=== PATIENT | male | born 1970 | race Caucasian/White ===

== ENCOUNTER 2016-12-23 13:25 | Emergency (ER) | payer MEDICARE, OTHER ==
[~2016-12-23 13:25] MED LIST: AMLO5TAB22 PO; ATOR40TA PO; BACL10TA PO; DICL50TA PO; IBUP-232 PO; LOSA100T PO; METO50TA11 PO; ROBA750T PO; TOVI8TAB PO
[2016-12-23 13:30] VITALS: PULSE 130; RESP 22; TEMP 99.7; O2SAT 97
[2016-12-23 14:07] LABS: BLOOD, URINE TRACE (NEG); GLUCOSE,URINE NEG (NEG); KETONE, URINE 40 mg/dL (NEG); NITRITE,URINE NEG (NEG)
[2016-12-23] MEDS ORDERED: SODIUM CHLOR 0.9% 1000 ML INJ 1,000 ML IV ONE (14:10)
[2016-12-23] MEDS ORDERED: CEFEPIME INJ 2,000 MG in SODIUM CHLORIDE 0.9% INJ 100 ML IV STA (14:10)
[2016-12-23 14:13] LABS: METHOD OF COLLECTION CLEAN CATCH; URINE COLOR YELLOW (YELLW/STRAW); WBC, URINE 100-200 /hpf (0-5)
[2016-12-23 14:14] LABS: BACTERIA, URINE FEW /hpf; COMMENT (UR) CULTURE INDICATED; CULTURE IF INDICATED CULTURE INDICATED
[2016-12-23] MEDS ORDERED: ACETAMINOPHEN 325 MG TAB PO ONE (14:15)
[2016-12-23] MEDS ORDERED: MORPHINE SULFATE 8 MG/ML INJ IV PUSH ONE (14:15)
[2016-12-23] MEDS ORDERED: ONDANSETRON HCL 4 MG/2 ML VIAL IV ONE (14:15)
[2016-12-23] MEDS ORDERED: LEVO-171 PO (14:17)
[2016-12-23] MEDS ORDERED: LORA-373 PO (14:17)
[2016-12-23] MEDS ORDERED: TOVI8TAB PO (14:17)
[2016-12-23] MEDS ORDERED: AMLO5TAB2 PO (14:17)
[2016-12-23] MEDS ORDERED: ZOLP10TA3 PO (14:17)
[2016-12-23] MEDS ORDERED: ATOR40TA16 PO (14:17)
[2016-12-23] MEDS ORDERED: METO50TA11 PO (14:17)
[2016-12-23] MEDS ORDERED: LOSA100T PO (14:17)
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
[2016-12-23 14:38] LABS: BASOPHIL # 0.1 TH/MM3 (0-0.2); BASOPHIL % 0.4 % (0.0-2.0); HEMATOCRIT 52.9 % (39.0-51.0); HEMO FLAGS DIFF FINAL; LYMPH % 4.5 % (9.0-44.0); LYMPHOCYTE # 0.6 TH/MM3 (1.0-4.8); MEAN CELL VOLUME 88.3 FL (80.0-100.0); MEAN CORPUSCULAR HEMOGLOBIN 29.3 PG (27.0-34.0); MEAN CORPUSCULAR HGB CONC 33.2 % (32.0-36.0); MONO % 7.6 % (0.0-8.0); NEUT % 87.5 % (16.0-70.0); PLATELET COUNT 211 TH/MM3 (150-450); RED BLOOD COUNT 5.99 MIL/MM3 (4.50-5.90); RED CELL DISTRIBUTION WIDTH 14.7 % (11.6-17.2); WHITE BLOOD COUNT 13.7 TH/MM3 (4.0-11.0)
[2016-12-23 14:47] LABS: POTASSIUM 3.9 MEQ/L (3.5-5.1)
[2016-12-23 14:50] LABS: BICARBONATE 22.3 MEQ/L (21.0-32.0)
[2016-12-23 15:03] VITALS: BP 96/48; PULSE 113; RESP 18; O2SAT 97
[2016-12-23 15:05] VITALS: BP 96/48; PULSE 113; RESP 18; TEMP 98.6; O2SAT 97
[2016-12-23 16:00] VITALS: BP 108/62; PULSE 74; RESP 18; O2SAT 98
[2016-12-23] MEDS ORDERED: MORPHINE SULFATE 4 MG/ML INJ IV ONE (16:00)
== END 2016-12-23 16:35 | disposition home or self-care (01) ==
LOC: PHEFT 13:25
DX: N39.0 Urinary tract infection, site not specified (principal); N31.8 Other neuromuscular dysfunction of bladder; G82.20 Paraplegia, unspecified; E78.00 Pure hypercholesterolemia, unspecified; E03.9 Hypothyroidism, unspecified; I10 Essential (primary) hypertension; Z87.442 Personal history of urinary calculi; Z72.0 Tobacco use; Z87.440 Personal history of urinary (tract) infections
CPT/HCPCS: 80048; 81001; 83605; 85025; 87040; 87086; 96365; 96375; 96376; 99283; J0692; J2270; J2405; J7030

== ENCOUNTER 2017-01-13 17:32 | Inpatient (IN) | payer MEDICARE ==
[~2017-01-13] VITALS: Ht 203.2 cm; Wt 132.9 kg
[2017-01-13] VITALS (11 sets, daily range): BP systolic 75–125; BP diastolic 54–88; PULSE 92–130; RESP 14–22; TEMP 98.7–102.6; O2SAT 93–100
[~2017-01-13 17:32] MED LIST changes: +AMLO5TAB2 PO; -AMLO5TAB22 PO; -ATOR40TA PO; +ATOR40TA16 PO; -BACL10TA PO; -DICL50TA PO; -IBUP-232 PO; +LEVO-171 PO; +LORA-373 PO; -ROBA750T PO; +ZOLP10TA3 PO
[2017-01-13] MEDS ORDERED: SODIUM CHLOR 0.9% 1000 ML INJ 400 ML IV ONE (17:47)
[2017-01-13] MEDS ORDERED: SODIUM CHLOR 0.9% 1000 ML INJ 1,000 ML IV ONE ×3 (17:47→23:00)
[2017-01-13] MEDS ORDERED: GENTAMICIN INJ 80 MG in SODIUM CHLORIDE 0.9% INJ 100 ML IV STA (17:47)
[2017-01-13] MEDS ORDERED: CEFEPIME INJ 2,000 MG in SODIUM CHLORIDE 0.9% INJ 100 ML IV STA (17:47)
[2017-01-13] MEDS ORDERED: ONDANSETRON HCL 4 MG/2 ML VIAL IV ONE (18:00)
[2017-01-13] MEDS ORDERED: MORPHINE SULFATE 4 MG/ML INJ IV PUSH ONE ×2 (18:00→19:00)
[2017-01-13] MEDS ORDERED: GENTAMICIN/SOD CHL 80 MG/100 ML IV ONE (18:00)
[2017-01-13] MEDS ORDERED: ACETAMINOPHEN 325 MG TAB PO ONE (18:00)
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
--- NOTE | 2017-01-13 18:02 | RADHPO ---
EXAM DATE/TIME: 01/13/2017 17:55 [facility] COMPARISON: CHEST SINGLE AP, January 13, 2016, 2:51. INDICATIONS : Fever, shortness of breath starting today MEDICAL HISTORY : None. SURGICAL HISTORY : Fusion, lumbar. Fusion, thoracic. ENCOUNTER: Initial ACUITY: 1 day PAIN SCORE: 0/10 LOCATION: Bilateral chest FINDINGS: A single view of the chest demonstrates the lungs to be symmetrically aerated without evidence of mas s, infiltrate or effusion. The cardiomediastinal contours are unremarkable. Osseous structures are intact. CONCLUSION: No acute disease. Preet Li MD FACR on January 13, 2017 at 18:01 Board Certified Radiologist. This report was verified electronically.
[2017-01-13 18:08] LABS: BLOOD GAS VENOUS BASE EXCESS 3.2 mmol/L (-2-2); BLOOD GAS VENOUS HCO3 26 mmol/L (22-26); BLOOD GAS VENOUS O2 CONTENT 9.7 Vol % (9.0-17.0); BLOOD GAS VENOUS O2 HGB SAT 40 % (70-76); BLOOD GAS VENOUS PCO2 33 mmHg (44-48); BLOOD GAS VENOUS PO2 24 mmHg (35-40); BLOOD GAS VENOUS pH 7.51 (7.360-7.400); TEMP CORR TO 98.6
[2017-01-13 18:09] LABS: CRITICAL VALUE YES; DRAW SITE IV; FIO2 21 %; OXYGEN DEVICE ROOM AIR; STAT YES
[2017-01-13 18:14] LABS: AUTOMATED NEUTROPHIL # 7.3 TH/MM3 (1.8-7.7); BASOPHIL # 0.1 TH/MM3 (0-0.2); BASOPHIL % 1.4 % (0.0-2.0); EOSINOPHIL # 0.1 TH/MM3 (0-0.4); EOSINOPHIL % 0.6 % (0.0-4.0); HEMATOCRIT 50.9 % (39.0-51.0); LYMPH % 5.6 % (9.0-44.0); LYMPHOCYTE # 0.5 TH/MM3 (1.0-4.8); MEAN CELL VOLUME 86.9 FL (80.0-100.0); MEAN CORPUSCULAR HEMOGLOBIN 28.1 PG (27.0-34.0); MEAN CORPUSCULAR HGB CONC 32.3 % (32.0-36.0); MONO % 10.3 % (0.0-8.0); NEUT % 82.1 % (16.0-70.0); PLATELET COUNT 176 TH/MM3 (150-450); RED BLOOD COUNT 5.85 MIL/MM3 (4.50-5.90); RED CELL DISTRIBUTION WIDTH 15.2 % (11.6-17.2); WHITE BLOOD COUNT 8.9 TH/MM3 (4.0-11.0)
[2017-01-13 18:20] LABS: CHLORIDE 100 MEQ/L (98-107); POTASSIUM 3.8 MEQ/L (3.5-5.1); SODIUM (NA) 137 MEQ/L (136-145)
[2017-01-13 18:23] LABS: ANION GAP 10 MEQ/L (5-15); BICARBONATE 26.7 MEQ/L (21.0-32.0)
[2017-01-13 18:24] LABS: BLOOD UREA NITROGEN 13 MG/DL (7-18)
[2017-01-13 18:26] LABS: ALT (GPT) 23 U/L (12-78); AST (GOT) 8 U/L (15-37); GLOMERULAR FILTRATION RATE 59 ML/MIN (>89)
[2017-01-13 18:27] LABS: HEMO FLAGS AUTO DIFF
[2017-01-13 18:29] LABS: ALKALINE PHOSPHATASE 78 U/L (45-117)
[2017-01-13 18:37] LABS: SCAN/DIFF AUTO DIFF CONFIRMED
[2017-01-13 18:46] LABS: GLUCOSE,URINE 100 mg/dL (NEG); KETONE, URINE NEG (NEG)
[2017-01-13 18:56] LABS: BLOOD, URINE MOD (NEG); NITRITE,URINE POS (NEG); URINE COLOR ORANGE (YELLW/STRAW)
[2017-01-13 18:58] LABS: BACTERIA, URINE MOD /hpf
[2017-01-13 18:59] LABS: COMMENT (UR) CULTURE INDICATED; CULTURE IF INDICATED CULTURE INDICATED
[2017-01-13] MEDS ORDERED: KETOROLAC TROMETHAMINE 30 MG/ML (IVP) VIAL IV PUSH ONE (19:15)
[2017-01-13 20:03] LABS: LACTIC ACID GHOST NOT REPORTABLE
[2017-01-13] MEDS ORDERED: NALOXONE HCL 0.4 MG/ML AMP IV PRN (20:45)
[2017-01-13] MEDS ORDERED: SODIUM CHLORIDE 0.9% FLUSH 5 ML FLUSH FLUSH PRN (20:45)
[2017-01-13] MEDS ORDERED: Gentamicin Consult Pharmacy 1 EA OTHER SCH (20:45)
[2017-01-13] MEDS: SODIUM CHLOR 0.9% 1000 ML INJ 1,000 ML IV SCH (21:10)
[2017-01-13] MEDS: SODIUM CHLORIDE 0.9% FLUSH 5 ML FLUSH FLUSH SCH (21:10)
[2017-01-13] MEDS: ZOLPIDEM TARTRATE 5 MG TAB PO PRN (23:02)
[2017-01-14] VITALS (30 sets, daily range): BP systolic 67–138; BP diastolic 40–83; PULSE 84–124; RESP 15–110; TEMP 97.8–101.9; O2SAT 90–98
[2017-01-14] MEDS ORDERED: SODIUM CHLORIDE 0.9% IV SCH ×2
[2017-01-14] MEDS ORDERED: GENTAMICIN IV SCH ×2
[2017-01-14] MEDS: ONDANSETRON HCL 4 MG/2 ML VIAL IVP PRN ×2 (02:50→18:27)
[2017-01-14] MEDS: LORazepam 0.5 MG TAB PO PRN ×2 (02:50→20:16)
[2017-01-14] MEDS ORDERED: MORPHINE SULFATE 4 MG/ML INJ IV PUSH PRN (03:15)
[2017-01-14] MEDS ORDERED: CHLORHEXIDINE GLUCONATE 2 % 1 PACK (2 CLOTHS)(extra cloths) TOP PRN (04:00)
[2017-01-14] MEDS: CHLORHEXIDINE GLUCONATE 2 % 1 PACK (2 CLOTHS)(taper/protocol) TOP SCH (04:00)
[2017-01-14 04:58] LABS: AUTOMATED NEUTROPHIL # 7.3 TH/MM3 (1.8-7.7); BASOPHIL # 0.1 TH/MM3 (0-0.2); BASOPHIL % 1.2 % (0.0-2.0); EOSINOPHIL % 0.1 % (0.0-4.0); HEMATOCRIT 42.8 % (39.0-51.0); LYMPH % 5.4 % (9.0-44.0); LYMPHOCYTE # 0.5 TH/MM3 (1.0-4.8); MEAN CELL VOLUME 86.2 FL (80.0-100.0); MEAN CORPUSCULAR HEMOGLOBIN 28.7 PG (27.0-34.0); MEAN CORPUSCULAR HGB CONC 33.3 % (32.0-36.0); MONO % 15.5 % (0.0-8.0); NEUT % 77.8 % (16.0-70.0); PLATELET COUNT 137 TH/MM3 (150-450); RED BLOOD COUNT 4.97 MIL/MM3 (4.50-5.90); RED CELL DISTRIBUTION WIDTH 14.8 % (11.6-17.2); WHITE BLOOD COUNT 9.4 TH/MM3 (4.0-11.0)
[2017-01-14] MEDS ORDERED: ACETAMINOPHEN 325 MG TAB PO PRN (05:00)
[2017-01-14] MEDS: HYDROmorphone HCL PF 1 MG/ML VIAL IV PUSH PRN ×6 (05:01→23:48)
[2017-01-14] MEDS: SODIUM CHLOR 0.9% 1000 ML INJ 1,000 ML IV SCH ×3 (05:02→20:15)
[2017-01-14 05:06] LABS: POTASSIUM 3.7 MEQ/L (3.5-5.1)
[2017-01-14 05:09] LABS: HEMO FLAGS AUTO DIFF
[2017-01-14 05:10] LABS: BICARBONATE 22.5 MEQ/L (21.0-32.0)
[2017-01-14 05:23] LABS: PLATELET ESTIMATE SMEAR LOW (NORMAL); PLATELET MORPHOLOGY NORMAL (NORMAL); SCAN/DIFF AUTO DIFF CONFIRMED
[2017-01-14] MEDS: LEVOTHYROXINE SODIUM 150 MCG TAB PO SCH (05:32)
[2017-01-14 05:34] LABS: CALCIUM-PROTEIN CORRECTED 7.8 MG/DL (8.5-10.1)
[2017-01-14] MEDS ORDERED: METOPROLOL SUCCINATE 50 MG EXTENDED RELEASE TAB PO SCH (09:00)
[2017-01-14] MEDS: ENOXAPARIN SODIUM 40 MG/0.4 ML SYRINGE SQ SCH ×2 (09:00→09:29)
[2017-01-14] MEDS: SODIUM CHLORIDE 0.9% FLUSH 5 ML FLUSH FLUSH SCH ×2 (09:36→20:15)
[2017-01-14] MEDS: TOLTERODINE TARTRATE 4 MG CAP LA PO SCH (09:36)
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
[2017-01-14] MEDS: ACETAMINOPHEN/HYDROcodone 325 MG/7.5 MG TAB PO PRN ×3 (11:35→21:54)
[2017-01-14] MEDS ORDERED: PHARMACY ORDERED LAB XX ONE (12:00)
[2017-01-14] MEDS: PIPERACIL-TAZO 3.375 GM PREMIX 50 ML IV SCH ×2 (12:19→17:43)
--- NOTE | 2017-01-14 14:39 | RADHPO ---
EXAM DATE/TIME: 01/14/2017 14:03 [facility] COMPARISON: No previous studies available for comparison. INDICATIONS : Left flank pain. Fever. Sepsis. Complicated urinary tract infection. ORAL CONTRAST: No oral contrast ingested. RADIATION DOSE: 22.25 CTDIvol (mGy) MEDICAL HISTORY : Renal calculi. Hypertension. Hypothyroidism.Colitis. Paraplegia. SURGICAL HISTORY : Appendectomy. Fusion, thoracic.Fusion, lumbar.Cholecystectomy. ENCOUNTER: Initial ACUITY: 2 days PAIN SCALE: 7/10 LOCATION: Left flank TECHNIQUE: Volumetric scanning of the abdomen and pelvis was performed. Using automated exposure control and ad justment of the mA and/or kV according to patient size, radiation dose was kept as low as reasonably achievable to obtain optimal diagnostic quality images. FINDINGS: LOWER LUNGS: Right basilar atelectasis. LIVER: Homogeneous density without lesion. There is no dilation of the biliary tree. Cholecystectomy clips. SPLEEN: Normal size without lesion. PANCREAS: Within normal limits. KIDNEYS: Normal in size and shape. There is no mass, stone, or hydronephrosis. ADRENAL GLANDS: Within normal limits. VASCULAR: There is no aortic aneurysm. BOWEL/MESENTERY: The stomach, small bowel, and colon demonstrate no acute abnormality. There is no free intraperitone al air or fluid. ABDOMINAL WALL: Within normal limits. RETROPERITONEUM: There is no lymphadenopathy. BLADDER: No wall thickening or mass. REPRODUCTIVE: Within normal limits. INGUINAL: There is no lymphadenopathy or hernia. MUSCULOSKELETAL: Spinal rods are seen at the thoracolumbar junction extending into the upper lumbar spine to about L3 level. CONCLUSION: 1. Status post cholecystectomy. 2. No renal calculi or hydronephrosis. Jimbo Sun MD on January 14, 2017 at 14:31 Board Certified Radiologist. This report was verified electronically.
--- NOTE | 2017-01-14 14:58 | RADHPO ---
EXAM DATE/TIME: 01/14/2017 11:38 [facility] COMPARISON: No previous studies available for comparison. EXTERNAL COMPARISON : [facility], US GALLBLADDER, September 10, 2009. [facility], CT ABDOMEN & PELVIS W & W/ O CONTRAST, December. INDICATIONS : Left flank pain. MEDICAL HISTORY : Hypothyroidism. Hypercholesterolemia. Gastroesophageal reflux disease. L1-T2 spinal cord injury. Para plegic. Seizures. Hypertension. Colitis. UTI. Tachycardia SURGICAL HISTORY : Tonsillectomy. Cholecystectomy. Appendectomy. Spinal fusion. Skin graft on right foot. Portion of hip and rib removal. ENCOUNTER: Initial ACUITY: 1 day PAIN SCORE: 4/10 LOCATION: Bilateral flank MEASUREMENTS: RIGHT KIDNEY: 14.3 x 6.3 x 6.8 cm LEFT KIDNEY: 14.2 x 6.4 x 5.4 cm FINDINGS: RIGHT KIDNEY: Renal cortex is normal in thickness and echotexture. No hydronephrosis, stone, or mass. LEFT KIDNEY: Renal cortex is normal in thickness and echotexture. No hydronephrosis, stone, or mass. BLADDER: Within normal limits given the degree of distension. CONCLUSION: Normal renal sonogram. Jimbo Sun MD on January 14, 2017 at 14:56 Board Certified Radiologist. This report was verified electronically.
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
[2017-01-14] MEDS ORDERED: cefTRIAXone 1,000 MG/NS 100 ML IV SCH ×2 (20:00)
[2017-01-14] MEDS: ZOLPIDEM TARTRATE 5 MG TAB PO PRN (21:54)
[2017-01-15] VITALS (15 sets, daily range): BP systolic 108–160; BP diastolic 65–93; PULSE 90–123; RESP 20–40; TEMP 98–98.8; O2SAT 93–98
[2017-01-15 00:29] LABS: BLOOD, URINE LARGE (NEG); GLUCOSE,URINE NEG (NEG); KETONE, URINE TRACE mg/dL (NEG); NITRITE,URINE NEG (NEG); PH, URINE 5.5 (5.0-8.5)
[2017-01-15 00:44] LABS: COMMENT (UR) CATH-CULT NOT IND; CULTURE IF INDICATED CATH CULTURE NOT IND; RBC, URINE 100-200 /hpf (0-3); SQUAMOUS EPITHELIAL CELL URINE 0-5 /hpf (0-5); URINE COLOR YELLOW (YELLW/STRAW)
[2017-01-15] MEDS: HYDROmorphone HCL PF 1 MG/ML VIAL IV PUSH PRN ×6 (03:10→23:47)
[2017-01-15] MEDS: CHLORHEXIDINE GLUCONATE 2 % 1 PACK (2 CLOTHS)(taper/protocol) TOP SCH (03:12)
[2017-01-15] MEDS: SODIUM CHLOR 0.9% 1000 ML INJ 1,000 ML IV SCH ×3 (06:06→20:33)
[2017-01-15] MEDS: LEVOTHYROXINE SODIUM 150 MCG TAB PO SCH (06:13)
[2017-01-15] MEDS: SODIUM CHLORIDE 0.9% FLUSH 5 ML FLUSH FLUSH SCH ×2 (09:00→20:34)
[2017-01-15] MEDS ORDERED: amLODIPine BESYLATE 5 MG TAB PO SCH (09:00)
[2017-01-15] MEDS: ENOXAPARIN SODIUM 40 MG/0.4 ML SYRINGE SQ SCH (09:00)
[2017-01-15] MEDS ORDERED: LOSARTAN 50 MG TAB PO SCH (09:00)
--- NOTE | 2017-01-15 09:00 | HHI.PR ---
Subjective Remarks Patient seen and examined today. Patient's only complaint is still pain which is not controlled with medication to include headache and left flank pain. I discussed with the patient clinical findings at this time a CT scan being completely normal. Repeat urinalysis is unremarkable. Awaiting cultures for final determination of outpatient antibiotics. Objective Vitals Vital Signs Date Time Temp Pulse Resp B/P Pulse Ox O2 Delivery O2 Flow Rate FiO2 01/15/17 06:36 23 01/15/17 06:00 118 25 152/84 96 01/15/17 06:00 116 01/15/17 05:00 122 25 93 01/15/17 04:00 98.5 118 25 135/85 93 01/15/17 04:00 123 01/15/17 03:02 98.8 122 40 142/77 93 01/15/17 02:01 104 25 140/74 94 01/15/17 02:00 94 01/15/17 01:00 100 21 148/74 94 01/15/17 00:00 98.8 108 23 108/74 94 01/15/17 00:00 102 01/14/17 23:00 102 21 109/58 01/14/17 22:54 21 01/14/17 22:00 94 01/14/17 22:00 94 30 113/73 96 01/14/17 21:00 100 25 122/82 01/14/17 20:00 99.5 108 22 97/60 96 01/14/17 20:00 105 01/14/17 18:00 100 01/14/17 17:02 94 20 108/61 01/14/17 16:02 98.0 84 16 108/62 01/14/17 16:00 92 01/14/17 15:02 88 16 109/62 93 01/14/17 15:00 92 01/14/17 14:17 94 17 103/62 01/14/17 14:00 96 01/14/17 13:00 92 01/14/17 13:00 92 17 102/81 90 01/14/17 12:00 86 01/14/17 12:00 97.8 86 18 114/65 93 01/14/17 11:00 86 01/14/17 11:00 86 16 104/76 95 01/14/17 10:00 92 21 107/62 94 01/14/17 10:00 92 01/14/17 09:00 92 01/14/17 09:00 92 23 102/67 97 I/O 01/14/17 01/14/17 01/14/17 01/15/17 01/15/17 01/15/17 07:00 15:00 23:00 07:00 15:00 23:00 Intake Total 1735 ml 2381 ml 1899 ml Output Total 1625 ml 1600 ml Balance 1735 ml 756 ml 299 ml Intake Oral 900 ml 800 ml IV Total 1735 ml 1481 ml 1099 ml Output Urine Total 1625 ml 1600 ml # Bowel Movements 0 0 Result Diagram: 01/14/177 01/14/177 Objective Remarks GENERAL: Well-developed, well-nourished, in no acute distress. alert and orientated HEENT: Head is normocephalic without any lesions or masses noted. Facial features are symmetric. Eyes: Extraocular muscles are intact. Conjunctivae were clear. NECK: Supple without any masses. Trachea midline no deviation. No JVD, CARDIAC: Regular rhythm, regular rate. S1/S2 are heard. No murmurs gallops or rubs. LUNGS: Clear to auscultation bilaterally. No wheeze, rhonchi or rales. No use of accessory muscles on inspiration or expiration. ABDOMEN: Soft, nontender. Nondistended. Bowel sounds heard in all 4 quadrants. No organomegaly or masses. Negative rebound, negative guarding. No CVA tenderness EXTREMITIES: No edema, pulses are equal bilaterally. No cyanosis or clubbing NEUROLOGY: Mood and affect appear appropriate. Cranial nerves II through XII grossly intact. Speech is normal Urinary Catheter: No Vascular Central Line Catheter: No A/P Assessment and Plan Severe sepsis: Resolved. Patient met criteria on presentation with febrile illness, sinus tachycardia, hypotension, lactic acidosis, urinary tract infection. Patient admitted to the ICU, no longer requires ICU management will transferred to med/surg floor. Patient status post 5 L of IV fluid for fluid resuscitation. Blood pressure is improved. Infectious disease was consulted and discontinue gentamicin, Zosyn. Started patient on Rocephin. Influenza testing was negative, blood cultures positive with Escherichia coli, urine cultures with ESBL + Escherichia coli. Chest x-rays done which did not indicate any acute abnormality. Discussed with infectious disease who indicated discontinue Rocephin and resume Zosyn Bacteremia with Escherichia coli: Continue Rocephin. CT of the abdomen and pelvis does not indicate any abnormality. Consulted infectious disease for further recommendations, repeat blood cultures are pending Complicated urinary Tract infection: Patient with left flank pain which appears to be colicky. No CVA tenderness. renal/bladder ultrasound was normal. Continue antibiotics as above. Continue to follow urine culture for further recommendations Acute renal failure: Likely secondary to sepsis and hypotension, venous blood gas did indicate O2 saturation of 40 which would be related to hypoperfusion. Continue IV fluids, monitor renal function, avoid nephrotoxins Hypothyroidism: Resume replacement therapy DVT prevention: Lovenox Written by Jose Mcclain PA-C, acting as scribe for Dr. Hernandez on 01/15/17 at 1150. The documentation accurately reflects the work and decisions performed face-to- face by Dr. Hernandez on 01/15/17 at 1150. Discharge Planning Discharge planning hopefully within the next 24 hours if patient remains afebrile. Blood cultures remain negative for at least 2 days. Awaiting culture sensitivities for appropriate antibiotics. Jose Mcclain Jan 15, 2017 09:00
[2017-01-15] MEDS: TOLTERODINE TARTRATE 4 MG CAP LA PO SCH (09:15)
[2017-01-15] MEDS: CALCIUM CARBONATE 500 MG CHEWABLE TAB CHEW SCH ×2 (09:15→20:33)
[2017-01-15] MEDS: METOPROLOL SUCCINATE 50 MG EXTENDED RELEASE TAB PO SCH (09:15)
[2017-01-15] MEDS: oxyCODONE/ACETAMINOPHEN 10 MG/325 MG TAB PO PRN ×2 (09:16→15:05)
[2017-01-15 10:05] LABS: BICARBONATE 25.3 MEQ/L (21.0-32.0); POTASSIUM 4.3 MEQ/L (3.5-5.1)
[2017-01-15] MEDS: ONDANSETRON HCL 4 MG/2 ML VIAL IVP PRN (10:38)
[2017-01-15] MEDS ORDERED: GENTAMICIN IV SCH (11:00)
[2017-01-15] MEDS ORDERED: SODIUM CHLORIDE 0.9% IV SCH (11:00)
[2017-01-15] MEDS: PIPERACIL-TAZO 3.375 GM PREMIX 50 ML IV SCH ×3 (12:09→23:46)
[2017-01-16] VITALS (8 sets, daily range): BP systolic 99–168; BP diastolic 62–99; PULSE 72–94; RESP 16–22; TEMP 97.9–99.3; O2SAT 94–99
[2017-01-16] MEDS: HYDROmorphone HCL PF 1 MG/ML VIAL IV PUSH PRN ×5 (02:44→21:31)
[2017-01-16] MEDS: LEVOTHYROXINE SODIUM 150 MCG TAB PO SCH (06:01)
[2017-01-16] MEDS: SODIUM CHLOR 0.9% 1000 ML INJ 1,000 ML IV SCH ×3 (06:01→21:29)
[2017-01-16] MEDS: CHLORHEXIDINE GLUCONATE 2 % 1 PACK (2 CLOTHS)(taper/protocol) TOP SCH (06:04)
[2017-01-16] MEDS: PIPERACIL-TAZO 3.375 GM PREMIX 50 ML IV SCH ×3 (06:05→18:26)
[2017-01-16 06:29] LABS: POTASSIUM 3.5 MEQ/L (3.5-5.1)
[2017-01-16 06:33] LABS: BICARBONATE 26.6 MEQ/L (21.0-32.0)
[2017-01-16] MEDS: CALCIUM CARBONATE 500 MG CHEWABLE TAB CHEW SCH ×2 (07:56→21:28)
[2017-01-16] MEDS: METOPROLOL SUCCINATE 50 MG EXTENDED RELEASE TAB PO SCH (07:56)
[2017-01-16] MEDS: TOLTERODINE TARTRATE 4 MG CAP LA PO SCH (07:56)
[2017-01-16] MEDS: SODIUM CHLORIDE 0.9% FLUSH 5 ML FLUSH FLUSH SCH ×2 (07:57→21:29)
[2017-01-16] MEDS: ENOXAPARIN SODIUM 40 MG/0.4 ML SYRINGE SQ SCH (07:57)
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
[2017-01-16] MEDS: LOSARTAN 50 MG TAB PO SCH (14:31)
[2017-01-16] MEDS: oxyCODONE/ACETAMINOPHEN 10 MG/325 MG TAB PO PRN (16:01)
[2017-01-16] MEDS: ZOLPIDEM TARTRATE 5 MG TAB PO PRN ×2 (21:29→21:32)
[2017-01-17] MEDS: HYDROmorphone HCL PF 1 MG/ML VIAL IV PUSH PRN ×6 (00:33→21:14)
[2017-01-17] MEDS: PIPERACIL-TAZO 3.375 GM PREMIX 50 ML IV SCH ×5 (00:39→22:57)
[2017-01-17 00:40] VITALS: BP 133/87; PULSE 76; RESP 18; TEMP 97.9; O2SAT 98
[2017-01-17] MEDS: LORazepam 0.5 MG TAB PO PRN (03:35)
[2017-01-17] MEDS: CHLORHEXIDINE GLUCONATE 2 % 1 PACK (2 CLOTHS)(taper/protocol) TOP SCH (03:37)
[2017-01-17] MEDS: LEVOTHYROXINE SODIUM 150 MCG TAB PO SCH (05:52)
[2017-01-17] MEDS: SODIUM CHLOR 0.9% 1000 ML INJ 1,000 ML IV SCH ×3 (05:53→21:15)
[2017-01-17] MEDS: TOLTERODINE TARTRATE 4 MG CAP LA PO SCH (08:35)
[2017-01-17] MEDS: ENOXAPARIN SODIUM 40 MG/0.4 ML SYRINGE SQ SCH (08:36)
[2017-01-17] MEDS: METOPROLOL SUCCINATE 50 MG EXTENDED RELEASE TAB PO SCH (08:36)
[2017-01-17] MEDS: SODIUM CHLORIDE 0.9% FLUSH 5 ML FLUSH FLUSH SCH ×2 (08:36→21:15)
[2017-01-17] MEDS: LOSARTAN 50 MG TAB PO SCH (08:36)
[2017-01-17] MEDS: CALCIUM CARBONATE 500 MG CHEWABLE TAB CHEW SCH ×2 (08:36→21:14)
[2017-01-17 09:18] VITALS: BP 144/99; PULSE 85; RESP 15; TEMP 97.5; O2SAT 96
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
[2017-01-17 17:00] VITALS: BP 160/99; PULSE 83; RESP 17; TEMP 96.9; O2SAT 99
[2017-01-17 20:00] VITALS: BP 116/89; PULSE 96; RESP 20; TEMP 97.5; O2SAT 97
[2017-01-17] MEDS: ZOLPIDEM TARTRATE 5 MG TAB PO PRN (21:14)
[2017-01-18] VITALS: BP 151/99; PULSE 83; RESP 20; TEMP 97.6; O2SAT 98
[2017-01-18] MEDS: HYDROmorphone HCL PF 1 MG/ML VIAL IV PUSH PRN ×3 (00:14→06:11)
[2017-01-18] MEDS: LORazepam 0.5 MG TAB PO PRN (02:55)
[2017-01-18] MEDS: CHLORHEXIDINE GLUCONATE 2 % 1 PACK (2 CLOTHS)(taper/protocol) TOP SCH (03:01)
[2017-01-18] MEDS: SODIUM CHLOR 0.9% 1000 ML INJ 1,000 ML IV SCH ×2 (05:40→12:45)
[2017-01-18] MEDS: LEVOTHYROXINE SODIUM 150 MCG TAB PO SCH (05:40)
[2017-01-18] MEDS: PIPERACIL-TAZO 3.375 GM PREMIX 50 ML IV SCH ×2 (05:41→13:26)
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
[2017-01-18 08:00] VITALS: BP 141/96; PULSE 78; RESP 16; TEMP 97.1; O2SAT 97
[2017-01-18] MEDS: TOLTERODINE TARTRATE 4 MG CAP LA PO SCH (09:50)
[2017-01-18] MEDS: oxyCODONE/ACETAMINOPHEN 10 MG/325 MG TAB PO PRN (09:50)
[2017-01-18] MEDS: LOSARTAN 50 MG TAB PO SCH (09:50)
[2017-01-18] MEDS: ENOXAPARIN SODIUM 40 MG/0.4 ML SYRINGE SQ SCH (09:51)
[2017-01-18] MEDS: CALCIUM CARBONATE 500 MG CHEWABLE TAB CHEW SCH (09:51)
[2017-01-18] MEDS: METOPROLOL SUCCINATE 50 MG EXTENDED RELEASE TAB PO SCH (09:51)
[2017-01-18] MEDS: SODIUM CHLORIDE 0.9% FLUSH 5 ML FLUSH FLUSH SCH (09:51)
[2017-01-18] MEDS ORDERED: AUGM875T PO (11:36)
[2017-01-18] MEDS ORDERED: DILA2TAB2 PO (11:36)
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
[2017-01-18 12:00] VITALS: BP 161/100; PULSE 89; RESP 16; TEMP 97.3; O2SAT 98
== END 2017-01-18 14:54 | disposition home or self-care (01) | DRG 872 ==
LOC: PHED 17:32 → PHEDA 19:13 → PHICU 21:30 → PH3B 01-16 15:35
PROVIDERS: ADMIT Family Medicine; ATTEND Family Medicine
DX: A41.51 Sepsis due to Escherichia coli [E. coli] (principal); E87.2 Acidosis; N17.9 Acute kidney failure, unspecified; G82.20 Paraplegia, unspecified; S24.104S Unspecified injury at T11-T12 level of thoracic spinal cord, sequela; N31.2 Flaccid neuropathic bladder, not elsewhere classified; N39.0 Urinary tract infection, site not specified; R65.20 Severe sepsis without septic shock; Z99.3 Dependence on wheelchair; E78.00 Pure hypercholesterolemia, unspecified; E03.9 Hypothyroidism, unspecified; I10 Essential (primary) hypertension; G47.30 Sleep apnea, unspecified; Z87.442 Personal history of urinary calculi; F17.210 Nicotine dependence, cigarettes, uncomplicated; E78.5 Hyperlipidemia, unspecified; Z98.1 Arthrodesis status; F12.90 Cannabis use, unspecified, uncomplicated; N32.89 Other specified disorders of bladder; B19.20 Unspecified viral hepatitis C without hepatic coma; Z16.12 Extended spectrum beta lactamase (ESBL) resistance; Z88.1 Allergy status to other antibiotic agents; V89.2XXS Person injured in unspecified motor-vehicle accident, traffic, sequela
CPT/HCPCS: 71010; 74176; 76775; 80048; 80053; 80170; 81001; 82805; 83605; 83690; 84155; 85025; 87040; 87077; 87086; 87186; 87205; 87641; 87804; 96365; 96367; 96375; 96376; J0692; J0696; J1170; J1580; J1650; J1885; J2270; J2405; J2543; J7030

== ENCOUNTER 2017-01-26 21:29 | Emergency (ER) | payer MEDICARE ==
[~2017-01-26 21:29] MED LIST changes: -ATOR40TA16 PO; +AUGM875T PO; +DILA2TAB2 PO
[2017-01-26 21:47] VITALS: BP 120/84; PULSE 107; RESP 20; TEMP 98.5; O2SAT 95
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
[2017-01-26] MEDS ORDERED: ATOR40TA16 PO (22:23)
== END 2017-01-26 22:35 | disposition home or self-care (01) ==
LOC: PHEFT 21:29
DX: I80.8 Phlebitis and thrombophlebitis of other sites (principal); E78.00 Pure hypercholesterolemia, unspecified; E03.9 Hypothyroidism, unspecified; I10 Essential (primary) hypertension; F17.210 Nicotine dependence, cigarettes, uncomplicated
CPT/HCPCS: 99283

== ENCOUNTER 2017-02-05 20:38 | Emergency (ER) | payer MEDICARE ==
[~2017-02-05] VITALS: Ht 203.2 cm; Wt 118.0 kg
[~2017-02-05 20:38] MED LIST changes: +ATOR40TA16 PO; -AUGM875T PO; -DILA2TAB2 PO
[2017-02-05 20:50] VITALS: BP 114/89; PULSE 99; TEMP 98.8
[2017-02-05 21:29] VITALS: BP 114/89; PULSE 99; RESP 18; TEMP 98.8; O2SAT 97
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
[2017-02-05] MEDS ORDERED: PYRI200T4 PO (21:57)
[2017-02-05] MEDS ORDERED: MACR100C2 PO (21:57)
[2017-02-05] MEDS ORDERED: PHENAZOPYRIDINE HCL 200 MG TAB PO ONE (22:00)
[2017-02-05] MEDS ORDERED: NITROFURANTOIN MONOHYD MACROCR 100 MG CAP PO ONE (22:00)
== END 2017-02-05 22:50 | disposition home or self-care (01) ==
LOC: PHED 20:38
DX: N30.90 Cystitis, unspecified without hematuria (principal); N31.9 Neuromuscular dysfunction of bladder, unspecified; I10 Essential (primary) hypertension; Z72.0 Tobacco use; F12.90 Cannabis use, unspecified, uncomplicated
CPT/HCPCS: 99283

== ENCOUNTER 2017-03-17 22:49 | Emergency (ER) | payer MEDICARE ==
[~2017-03-17] VITALS: Ht 203.2 cm; Wt 129.0 kg
[~2017-03-17 22:49] MED LIST changes: +MACR100C2 PO; +PYRI200T4 PO
[2017-03-17 22:59] VITALS: BP 145/105; PULSE 131; RESP 20; TEMP 98.2; O2SAT 97
[2017-03-17 23:09] VITALS: BP 145/105; PULSE 130; RESP 20; TEMP 98.2; O2SAT 97
[2017-03-17] MEDS ORDERED: HYDR-2374 PO (23:21)
[2017-03-17] MEDS ORDERED: ESCI10TA PO (23:21)
[2017-03-17] MEDS ORDERED: ALPR.5 PO (23:21)
[2017-03-17] MEDS ORDERED: SODIUM CHLOR 0.9% 1000 ML INJ 1,000 ML IV SCH ×2 (23:39→23:45)
[2017-03-17 23:45] VITALS: O2SAT 97
[2017-03-17] MEDS ORDERED: KETOROLAC TROMETHAMINE 60 MG/2 ML (IM) VIAL IVP ONE (23:45)
[2017-03-17] MEDS ORDERED: ONDANSETRON HCL 4 MG/2 ML VIAL IV ONE (23:45)
[2017-03-17] MEDS ORDERED: SODIUM CHLORIDE 0.9% FLUSH 10 ML FLUSH IV FLUSH PRN (23:45)
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
--- NOTE | 2017-03-18 00:07 | RADHPO ---
EXAM DATE/TIME: 03/17/2017 23:48 [facility] COMPARISON: No previous studies available for comparison. INDICATIONS : Cough, shortness of breath, chest pain. MEDICAL HISTORY : None. SURGICAL HISTORY : Fusion, thoracic. Fusion, lumbar. ENCOUNTER: Initial ACUITY: 3 days PAIN SCORE: 3/10 LOCATION: chest FINDINGS: PA and lateral views of the chest demonstrate the lungs to be symmetrically aerated without evidence of mass, infiltrate or effusion. The cardiomediastinal contours are unremarkable. Osseous structure s are intact. CONCLUSION: 1. No acute cardiopulmonary disease. Javy Martinez MD on March 18, 2017 at 0:05 Board Certified Radiologist. This report was verified electronically.
[2017-03-18 00:19] LABS: AUTOMATED NEUTROPHIL # 8.2 TH/MM3 (1.8-7.7); BASOPHIL # 0.1 TH/MM3 (0-0.2); BASOPHIL % 0.5 % (0.0-2.0); EOSINOPHIL % 0.4 % (0.0-4.0); HEMATOCRIT 56.6 % (39.0-51.0); HEMO FLAGS DIFF FINAL; LYMPH % 15.7 % (9.0-44.0); LYMPHOCYTE # 1.8 TH/MM3 (1.0-4.8); MEAN CELL VOLUME 89.1 FL (80.0-100.0); MEAN CORPUSCULAR HEMOGLOBIN 29.3 PG (27.0-34.0); MEAN CORPUSCULAR HGB CONC 32.9 % (32.0-36.0); MONO % 9.7 % (0.0-8.0); NEUT % 73.7 % (16.0-70.0); PLATELET COUNT 214 TH/MM3 (150-450); RED BLOOD COUNT 6.35 MIL/MM3 (4.50-5.90); WHITE BLOOD COUNT 11.2 TH/MM3 (4.0-11.0)
[2017-03-18 00:27] LABS: CHLORIDE 100 MEQ/L (98-107); POTASSIUM 4.7 MEQ/L (3.5-5.1); SODIUM (NA) 140 MEQ/L (136-145)
[2017-03-18 00:32] LABS: ANION GAP 13 MEQ/L (5-15); BICARBONATE 26.7 MEQ/L (21.0-32.0); BLOOD UREA NITROGEN 17 MG/DL (7-18)
[2017-03-18 00:34] LABS: ALT (GPT) 62 U/L (12-78); AST (GOT) 42 U/L (15-37)
[2017-03-18 00:35] LABS: GLOMERULAR FILTRATION RATE 59 ML/MIN (>89)
[2017-03-18 00:36] LABS: TOTAL BILIRUBIN ADULT 1.1 MG/DL (0.2-1.0)
[2017-03-18 00:37] LABS: ALKALINE PHOSPHATASE 77 U/L (45-117)
[2017-03-18 00:55] LABS: BLOOD, URINE NEG (NEG); GLUCOSE,URINE NEG (NEG); KETONE, URINE 15 mg/dL (NEG); NITRITE,URINE NEG (NEG); PH, URINE 5.5 (5.0-8.5)
[2017-03-18 01:04] VITALS: RESP 16
[2017-03-18 01:04] LABS: URINE COLOR YELLOW (YELLW/STRAW)
[2017-03-18 01:05] LABS: RBC, URINE 0-2 /hpf (0-3)
[2017-03-18 01:06] LABS: COMMENT (UR) CULT NOT INDICATED; CULTURE IF INDICATED CULT NOT INDICATED; URIC ACID CRYSTALS, URINE FEW /hpf
[2017-03-18] MEDS ORDERED: DIAZ5 PO (01:15)
[2017-03-18] MEDS ORDERED: PROM25TA5 PO (01:19)
[2017-03-18 01:27] VITALS: BP 146/82; TEMP 98.3
[2017-03-18] MEDS ORDERED: ORPHENADRINE INJ 60 MG/2 ML AMP IM ONE (01:30)
== END 2017-03-18 01:47 | disposition home or self-care (01) ==
LOC: PHED 22:49
DX: K29.70 Gastritis, unspecified, without bleeding (principal); R25.2 Cramp and spasm; R05 Cough; J02.9 Acute pharyngitis, unspecified; R07.9 Chest pain, unspecified; E86.0 Dehydration; E78.00 Pure hypercholesterolemia, unspecified; E03.9 Hypothyroidism, unspecified; I10 Essential (primary) hypertension; Z72.0 Tobacco use
CPT/HCPCS: 71020; 80053; 81001; 83690; 85025; 96361; 96372; 96374; 96375; 99284; J1885; J2360; J2405; J7030

== ENCOUNTER 2017-05-25 20:18 | Inpatient (IN) | payer MEDICARE ==
[~2017-05-25] VITALS: Ht 203.2 cm; Wt 122.5 kg
[~2017-05-25 20:18] MED LIST changes: +ALPR.5 PO; +DIAZ5 PO; +ESCI10TA PO; +HYDR-2374 PO; -MACR100C2 PO; +PROM25TA5 PO; -PYRI200T4 PO
[2017-05-25 20:22] VITALS: BP 128/94; PULSE 142; RESP 22; TEMP 98.7; O2SAT 98
[2017-05-25] MEDS ORDERED: SODIUM CHLOR 0.9% 1000 ML INJ 1,000 ML IV ONE ×3 (20:47→21:29)
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
[2017-05-25] MEDS ORDERED: ONDANSETRON HCL 4 MG/2 ML VIAL IV PUSH ONE (21:00)
[2017-05-25] MEDS ORDERED: HYDROmorphone HCL PF 1 MG/ML VIAL IV PUSH ONE ×2 (21:00→22:00)
[2017-05-25 21:08] LABS: AUTOMATED NEUTROPHIL # 22.7 TH/MM3 (1.8-7.7); BASOPHIL # 0.3 TH/MM3 (0-0.2); BASOPHIL % 1.1 % (0.0-2.0); EOSINOPHIL # 0.1 TH/MM3 (0-0.4); EOSINOPHIL % 0.2 % (0.0-4.0); HEMATOCRIT 55.2 % (39.0-51.0); LYMPH % 7.1 % (9.0-44.0); MEAN CELL VOLUME 90.9 FL (80.0-100.0); MEAN CORPUSCULAR HEMOGLOBIN 30.6 PG (27.0-34.0); MEAN CORPUSCULAR HGB CONC 33.7 % (32.0-36.0); MONO % 9.5 % (0.0-8.0); NEUT % 82.1 % (16.0-70.0); PLATELET COUNT 218 TH/MM3 (150-450); RED BLOOD COUNT 6.07 MIL/MM3 (4.50-5.90); RED CELL DISTRIBUTION WIDTH 14.9 % (11.6-17.2); WHITE BLOOD COUNT 27.7 TH/MM3 (4.0-11.0)
[2017-05-25 21:26] LABS: POTASSIUM 4.4 MEQ/L (3.5-5.1)
[2017-05-25] MEDS ORDERED: SODIUM CHLOR 0.9% 1000 ML INJ 900 ML IV ONE (21:29)
[2017-05-25 21:30] LABS: BLOOD, URINE SMALL (NEG); GLUCOSE,URINE 250 mg/dL (NEG); KETONE, URINE 40 mg/dL (NEG); NITRITE,URINE NEG (NEG)
[2017-05-25] MEDS ORDERED: PIPERACIL-TAZO 4.5 GM PREMIX 100 ML IV ONE (21:30)
[2017-05-25 21:38] LABS: BACTERIA, URINE FEW /hpf; COMMENT (UR) CATH-CULTURE IND; CULTURE IF INDICATED CATH CULTURE IND; RBC, URINE 0-3 /hpf (0-3); SQUAMOUS EPITHELIAL CELL URINE 0-5 /hpf (0-5); URINE COLOR YELLOW (YELLW/STRAW)
[2017-05-25 21:45] VITALS: BP 129/86; PULSE 125
[2017-05-25 21:50] LABS: BICARBONATE 22.8 MEQ/L (21.0-32.0)
[2017-05-25 22:00] LABS: CALCIUM-PROTEIN CORRECTED 12.1 MG/DL (8.5-10.1)
[2017-05-25 22:10] LABS: HEMO FLAGS AUTO DIFF
[2017-05-25] MEDS ORDERED: AMPI250C9 PO (22:27)
[2017-05-25 22:28] VITALS: BP 112/79; PULSE 123; TEMP 99.7; O2SAT 95
[2017-05-25 22:35] LABS: SCAN/DIFF AUTO DIFF CONFIRMED
--- NOTE | 2017-05-25 22:55 | RADRPT ---
EXAM DATE/TIME: 05/25/2017 22:04 [facility] COMPARISON: CT ABDOMEN & PELVIS W/O CONTRAST, January 14, 2017, 14:03. INDICATIONS : Right flank pain. ORAL CONTRAST: No oral contrast ingested. RADIATION DOSE: 24.34 CTDIvol (mGy) MEDICAL HISTORY : None SURGICAL HISTORY : Spinal ENCOUNTER: Initial ACUITY: 1 day PAIN SCALE: 6/10 LOCATION: Right flank TECHNIQUE: Volumetric scanning of the abdomen and pelvis was performed. Using automated exposure control and ad justment of the mA and/or kV according to patient size, radiation dose was kept as low as reasonably achievable to obtain optimal diagnostic quality images. DICOM format image data is available electro nically for review and comparison. FINDINGS: LOWER LUNGS: The visualized lower lungs are clear. LIVER: Homogeneous density without lesion. There is no dilation of the biliary tree. There is a suspected c alcified stone involving the inferior portion of the common bile duct. This measures 4 mm in diameter . Gallbladder is surgically absent. SPLEEN: Normal size without lesion. PANCREAS: Within normal limits. KIDNEYS: Normal in size and shape. There is no mass, stone, or hydronephrosis. ADRENAL GLANDS: Within normal limits. VASCULAR: There is no aortic aneurysm. BOWEL/MESENTERY: The stomach, small bowel, and colon demonstrate no acute abnormality. There is no free intraperitone al air or fluid. ABDOMINAL WALL: Within normal limits. RETROPERITONEUM: There is no lymphadenopathy. BLADDER: No wall thickening or mass. A Cervantes balloon is present in the gallbladder largely decompressed. REPRODUCTIVE: Within normal limits. INGUINAL: There is no lymphadenopathy or hernia. MUSCULOSKELETAL: Orthopedic hardware involving the lower thoracic and upper lumbar spine. CONCLUSION: 1. Suspected 4 mm solitary stone within the common bile duct without dilatation. This can be further evaluated with MRCP if clinically warranted. 2. Prior cholecystectomy. Leo Wolfe Jr., MD on May 25, 2017 at 22:49 Board Certified Radiologist. This report was verified electronically.
[2017-05-25 22:59] LABS: LACTIC ACID GHOST NOT REPORTABLE
[2017-05-25] MEDS ORDERED: ONDANSETRON HCL 4 MG/2 ML VIAL IVP PRN (23:15)
[2017-05-25] MEDS ORDERED: NALOXONE HCL 0.4 MG/ML AMP IV PRN (23:15)
[2017-05-25] MEDS ORDERED: SODIUM CHLORIDE 0.9% FLUSH 10 ML FLUSH IV FLUSH PRN (23:15)
[2017-05-25] MEDS ORDERED: HYDROmorphone HCL PF 1 MG/ML VIAL IV PUSH PRN (23:15)
[2017-05-25 23:30] VITALS: PULSE 114; RESP 20; O2SAT 98
[2017-05-25] MEDS ORDERED: PROM25TA10 PO (23:43)
[2017-05-25 23:49] VITALS: BP 126/86; PULSE 115; RESP 20; O2SAT 97
[2017-05-25] MEDS: SODIUM CHLOR 0.9% 1000 ML INJ 1,000 ML IV SCH (23:57)
[2017-05-26] VITALS (7 sets, daily range): BP systolic 124–156; BP diastolic 64–90; PULSE 89–114; RESP 14–20; TEMP 96.8–98.4; O2SAT 94–99
[2017-05-26] MEDS: ALPRAZolam 0.5 MG TAB PO PRN ×2 (00:22→21:30)
[2017-05-26] MEDS: ACETAMINOPHEN/HYDROcodone 325 MG/10 MG TAB PO PRN ×2 (00:22→10:08)
[2017-05-26] MEDS: ZOLPIDEM TARTRATE 10 MG TAB PO PRN ×2 (01:37→22:39)
[2017-05-26] MEDS: HYDROmorphone HCL PF 1 MG/ML VIAL IV PUSH PRN ×7 (02:39→22:40)
[2017-05-26] MEDS: PIPERACIL-TAZO 4.5 GM PREMIX 100 ML IV SCH ×4 (03:52→21:31)
[2017-05-26 06:40] LABS: AUTOMATED NEUTROPHIL # 15.4 TH/MM3 (1.8-7.7); BASOPHIL % 0.1 % (0.0-2.0); EOSINOPHIL % 0.2 % (0.0-4.0); HEMATOCRIT 46.8 % (39.0-51.0); HEMO FLAGS DIFF FINAL; LYMPH % 4.5 % (9.0-44.0); LYMPHOCYTE # 0.8 TH/MM3 (1.0-4.8); MEAN CELL VOLUME 90.8 FL (80.0-100.0); MEAN CORPUSCULAR HEMOGLOBIN 30.5 PG (27.0-34.0); MEAN CORPUSCULAR HGB CONC 33.6 % (32.0-36.0); MONO % 8.8 % (0.0-8.0); NEUT % 86.4 % (16.0-70.0); PLATELET COUNT 142 TH/MM3 (150-450); RED BLOOD COUNT 5.16 MIL/MM3 (4.50-5.90); RED CELL DISTRIBUTION WIDTH 14.9 % (11.6-17.2); WHITE BLOOD COUNT 17.8 TH/MM3 (4.0-11.0)
[2017-05-26 06:45] LABS: POTASSIUM 4.5 MEQ/L (3.5-5.1)
[2017-05-26 06:54] LABS: BICARBONATE 29.7 MEQ/L (21.0-32.0)
[2017-05-26] MEDS: SODIUM CHLOR 0.9% 1000 ML INJ 1,000 ML IV SCH ×2 (09:07→21:25)
[2017-05-26] MEDS: SODIUM CHLORIDE 0.9% FLUSH 10 ML FLUSH IV FLUSH SCH ×2 (09:07→21:00)
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
[2017-05-26] MEDS: oxyCODONE/ACETAMINOPHEN 7.5 MG/325 MG TAB PO PRN ×2 (15:03→21:27)
[2017-05-27] VITALS: BP 139/78; PULSE 86; RESP 18; TEMP 97.4; O2SAT 96
[2017-05-27] MEDS: oxyCODONE/ACETAMINOPHEN 7.5 MG/325 MG TAB PO PRN ×4 (02:15→22:03)
[2017-05-27] MEDS ORDERED: HYDROmorphone HCL PF 1 MG/ML VIAL IV PUSH ONE (02:30)
[2017-05-27] MEDS: PIPERACIL-TAZO 4.5 GM PREMIX 100 ML IV SCH ×4 (03:00→22:02)
[2017-05-27] MEDS: SODIUM CHLOR 0.9% 1000 ML INJ 1,000 ML IV SCH (05:14)
[2017-05-27 06:07] LABS: MEAN CELL VOLUME 91.7 FL (80.0-100.0); MEAN CORPUSCULAR HGB CONC 33.8 % (32.0-36.0); PLATELET COUNT 127 TH/MM3 (150-450); RED CELL DISTRIBUTION WIDTH 14.7 % (11.6-17.2); REVIEW FLAG FINAL; WHITE BLOOD COUNT 10.4 TH/MM3 (4.0-11.0)
[2017-05-27 06:16] LABS: POTASSIUM 3.8 MEQ/L (3.5-5.1)
[2017-05-27 06:23] LABS: BICARBONATE 30.4 MEQ/L (21.0-32.0)
[2017-05-27] MEDS: LEVOTHYROXINE SODIUM 150 MCG TAB PO SCH (06:25)
[2017-05-27] MEDS: HYDROmorphone HCL PF 1 MG/ML VIAL IV PUSH PRN ×3 (07:26→23:03)
[2017-05-27 08:00] VITALS: BP 151/85; PULSE 91; RESP 15; TEMP 97.1; O2SAT 97
[2017-05-27] MEDS: ATORVASTATIN 40 MG TAB PO SCH (09:46)
[2017-05-27] MEDS: METOPROLOL SUCCINATE 50 MG EXTENDED RELEASE TAB PO SCH (09:46)
[2017-05-27] MEDS: ESCITALOPRAM OXALATE 10 MG TAB PO SCH (09:46)
[2017-05-27] MEDS: SODIUM CHLORIDE 0.9% FLUSH 10 ML FLUSH IV FLUSH SCH ×2 (09:50→21:00)
--- NOTE | 2017-05-27 11:08 | HHI.PR ---
Subjective Remarks Patient reports feeling better today. Right flank pain is better. No fevers or chills. Objective Vitals Vital Signs Date Time Temp Pulse Resp B/P Pulse Ox O2 Delivery O2 Flow Rate FiO2 05/27/17 00:00 97.4 86 18 139/78 96 05/26/17 23:29 16 05/26/17 20:00 97.4 98 20 133/83 94 05/26/17 18:35 96.8 89 16 142/90 95 05/26/17 13:47 97.4 96 14 135/80 96 I/O 05/26/17 05/26/17 05/26/17 05/27/17 05/27/17 05/27/17 07:00 15:00 23:00 07:00 15:00 23:00 Intake Total 900 ml 800 ml 1782 ml Output Total 1500 ml 1800 ml Balance 900 ml -700 ml -18 ml Intake Oral 800 ml 960 ml Oral Supplement 100 ml IV Total 900 ml 722 ml Output Urine Total 1500 ml 1800 ml Stool Total 0 ml Result Diagram: 05/27/17 0455 05/27/17 0455 Imaging Last Impressions Abdomen/Pelvis CT 05/25/17 0000 Signed Impressions: Service Date/Time: Thursday, May 25, 2017 22:04 - CONCLUSION: 1. Suspected 4 mm solitary stone within the common bile duct without dilatation. This can be further evaluated with MRCP if clinically warranted. 2. Prior cholecystectomy. Leo Wolfe Jr., MD Objective Remarks GENERAL: Paraplegic male in no apparent distress. CARDIOVASCULAR: Regular rate and rhythm without murmurs, gallops, or rubs. RESPIRATORY: Clear to auscultation. Breath sounds equal bilaterally. No wheezes , rales, or rhonchi. : Mild CVA tenderness on the right GASTROINTESTINAL: Abdomen soft, non-tender, nondistended. No hepato-splenomegaly , or palpable masses. No guarding. MUSCULOSKELETAL: Extremities without clubbing, cyanosis, or edema. No joint tenderness, effusion, or edema noted. No calf tenderness. Negative Homans sign bilaterally. NEUROLOGICAL: Awake and alert. Paraplegic. Normal speech. A/P Problem List: (1) Severe sepsis ICD Code: A41.9 Status: Acute (2) Complicated UTI (urinary tract infection) ICD Code: N39.0 Status: Acute (3) Paraplegia ICD Code: G82.20 Status: Chronic (4) Neurogenic bladder disorder ICD Code: N31.9 Status: Acute Assessment and Plan 46-year-old male admitted with: Severe sepsis probably secondary to complicated urinary tract infection: Patient met criteria on presentation with tachycardia, lactic acidosis, impaired renal functions, urinary tract infection. - Patient does have a history of MDRO. Continue Zosyn. Follow urine and blood cultures. IV fluid. Right flank pain: Secondary to above. Percocet as needed. Dilaudid for breakthrough pain. Acute kidney injury: Resolving with IV fluid. DC IVF, encourage oral hydration , monitor renal function, avoid nephrotoxins Hypothyroidism: Resume replacement therapy DVT prevention: SCDs Discharge Planning Plan to DC in 1-2 days depending on symptoms and cultures. Jane Oliva MD May 27, 2017 11:08
[2017-05-27 12:30] VITALS: BP 157/85; PULSE 91; RESP 15; TEMP 97.1; O2SAT 97
[2017-05-27 16:00] VITALS: BP 151/96; PULSE 84; RESP 15; TEMP 97.1; O2SAT 99
[2017-05-27 20:00] VITALS: BP 160/100; PULSE 95; RESP 16; TEMP 98.7; O2SAT 97
[2017-05-27] MEDS: ALPRAZolam 0.5 MG TAB PO PRN (23:04)
[2017-05-27] MEDS: ZOLPIDEM TARTRATE 10 MG TAB PO PRN (23:04)
[2017-05-28] VITALS: BP 138/94; PULSE 92; RESP 20; TEMP 98.1; O2SAT 94
[2017-05-28] MEDS: oxyCODONE/ACETAMINOPHEN 7.5 MG/325 MG TAB PO PRN ×6 (03:21→23:47)
[2017-05-28] MEDS: HYDROmorphone HCL PF 1 MG/ML VIAL IV PUSH PRN ×5 (04:37→21:31)
[2017-05-28] MEDS: PIPERACIL-TAZO 4.5 GM PREMIX 100 ML IV SCH ×2 (04:39→10:18)
[2017-05-28] MEDS: LEVOTHYROXINE SODIUM 150 MCG TAB PO SCH (04:39)
[2017-05-28 06:39] LABS: HEMATOCRIT 46.9 % (39.0-51.0); MEAN CELL VOLUME 93.5 FL (80.0-100.0); MEAN CORPUSCULAR HEMOGLOBIN 30.8 PG (27.0-34.0); MEAN CORPUSCULAR HGB CONC 32.9 % (32.0-36.0); PLATELET COUNT 151 TH/MM3 (150-450); RED BLOOD COUNT 5.02 MIL/MM3 (4.50-5.90); RED CELL DISTRIBUTION WIDTH 15.1 % (11.6-17.2); REVIEW FLAG FINAL; WHITE BLOOD COUNT 6.7 TH/MM3 (4.0-11.0)
[2017-05-28 06:44] LABS: POTASSIUM 3.7 MEQ/L (3.5-5.1)
[2017-05-28 06:46] LABS: BICARBONATE 32.7 MEQ/L (21.0-32.0)
[2017-05-28 08:00] VITALS: BP 137/106; PULSE 77; RESP 20; TEMP 97.8; O2SAT 99
[2017-05-28] MEDS: METOPROLOL SUCCINATE 50 MG EXTENDED RELEASE TAB PO SCH (08:13)
[2017-05-28] MEDS: ATORVASTATIN 40 MG TAB PO SCH (08:13)
[2017-05-28] MEDS: ESCITALOPRAM OXALATE 10 MG TAB PO SCH (08:14)
[2017-05-28] MEDS: SODIUM CHLORIDE 0.9% FLUSH 10 ML FLUSH IV FLUSH SCH ×2 (08:14→21:33)
[2017-05-28 10:50] LABS: INDIRECT BILIRUBIN 0.4 MG/DL (0.0-0.8); TOTAL BILIRUBIN ADULT 0.5 MG/DL (0.2-1.0)
--- NOTE | 2017-05-28 11:37 | HHI.PR ---
Subjective Remarks still c/o right flank pain denies fevers and chills denies cp/sob Blood pressure elevated in the 150 systolic. Objective Vitals Vital Signs Date Time Temp Pulse Resp B/P Pulse Ox O2 Delivery O2 Flow Rate FiO2 05/28/17 08:00 97.8 77 20 137/106 99 05/28/17 00:00 98.1 92 20 138/94 94 05/27/17 20:00 98.7 95 16 160/100 97 05/27/17 16:00 97.1 84 15 151/96 99 05/27/17 12:30 97.1 91 15 157/85 97 I/O 05/27/17 05/27/17 05/27/17 05/28/17 05/28/17 05/28/17 07:00 15:00 23:00 07:00 15:00 23:00 Intake Total 1782 ml 1000 ml 380 ml Output Total 1800 ml 3000 ml 2300 ml Balance -18 ml -2000 ml -1920 ml Intake Oral 960 ml 1000 ml 380 ml Oral Supplement 100 ml IV Total 722 ml Output Urine Total 1800 ml 3000 ml 2300 ml Stool Total 0 ml Result Diagram: 05/28/17 0610 05/28/17 0610 Imaging Last Impressions Abdomen/Pelvis CT 05/25/17 0000 Signed Impressions: Service Date/Time: Thursday, May 25, 2017 22:04 - CONCLUSION: 1. Suspected 4 mm solitary stone within the common bile duct without dilatation. This can be further evaluated with MRCP if clinically warranted. 2. Prior cholecystectomy. Leo Wolfe Jr., MD Objective Remarks AAOx3 Right CVA tenderness on palpation Abdomen soft, tender to palpation of right upper quadrant. Procedures None Medications and IVs Current Medications Medications (Trade) Dose Ordered Sig/Renetta Route Start Time Stop Time Status Last Admin (NS Flush) 2 ml UNSCH PRN IV FLUSH 05/25/17 23:15 (NS Flush) 2 ml BID IV FLUSH 05/26/17 09:00 05/28/17 08:14 (Zofran Inj) 4 mg Q6H PRN IVP 05/25/17 23:15 (Narcan Inj) 0.4 mg UNSCH PRN IV 05/25/17 23:15 (Dilaudid Pf Inj) 0.2 mg Q3H PRN IV PUSH 05/26/17 00:30 05/28/17 13:59 (Xanax) 0.5 mg Q8H PRN PO 05/26/17 00:15 05/27/17 23:04 (Valium) 5 mg TID PRN PO 05/26/17 00:15 (Ambien) 10 mg HS PRN PO 05/26/17 00:15 05/27/17 23:04 (Percocet 7.5-325 Mg) 1 tab Q4H PRN PO 05/26/17 14:30 05/28/17 12:23 (Lipitor) 40 mg DAILY PO 05/27/17 09:00 05/28/17 08:13 (Lexapro) 10 mg DAILY PO 05/27/17 09:00 05/28/17 08:14 (Synthroid) 300 mcg DAILY@06 PO 05/27/17 06:00 05/28/17 04:39 Metoprolol Succinate 50 mg 50 mg DAILY PO 05/27/17 09:00 05/28/17 08:13 (Cipro 400 Mg Premix) 200 ml @ 200 mls/hr Q8H IV 05/28/17 16:00 UNV Urinary Catheter: No Vascular Central Line Catheter: No A/P Problem List: (1) Severe sepsis ICD Code: A41.9 Status: Resolved Plan: There is sepsis secondary to computer UTI. Present on admission with tachycardia, elevated lactic acid level, leukocytosis. Severe sepsis resolving Treated with IV antibiotics, the patient started on IV Zosyn However will consult infectious disease since patient is growing ESBL Escherichia coli UTI (2) Complicated UTI (urinary tract infection) ICD Code: N39.0 Status: Acute Plan: As above. Consult infectious disease (3) MELBA (acute kidney injury) ICD Code: N17.9 Status: Resolved Plan: Patient presented with a creatinine of 1.4. Treated with IV fluid administration. Creatinine down to 1.1. The SPECT chronic kidney disease stage II. (4) Paraplegia ICD Code: G82.20 Status: Chronic Plan: Patient needs self-catheterization, putting him at high risk for UTIs. The patient follows up with his urologist regularly. Will need to follow-up with urology as an outpatient. (5) HTN (hypertension) ICD Code: I10 Status: Chronic Plan: Patient with uncontrolled hypertension. Will increase metoprolol from 50 mg by mouth daily to 75 mg by mouth daily. (6) Common bile duct stone ICD Code: K80.50 Status: Acute Plan: As seen on CT described above. Consult gastroenterology. Will check MRCP. Patient states he gets very anxious and agitated on MRI machine. I will use Ativan as needed to sedate him prior to study. (7) Hypothyroidism ICD Code: E03.9 Status: Chronic Plan: Check TSH. Continue levothyroxine at dose taken at home. Lakhwinder Ho MD May 28, 2017 11:37
[2017-05-28 12:00] VITALS: BP 152/100; PULSE 78; RESP 18; TEMP 98; O2SAT 99
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
[2017-05-28 16:00] VITALS: BP 142/92; PULSE 74; RESP 18; TEMP 98.1; O2SAT 99
[2017-05-28] MEDS ORDERED: LORazepam 2 MG/ML VIAL IV PUSH PRN (16:45)
[2017-05-28] MEDS ORDERED: LORazepam 2 MG/ML VIAL IV PUSH ONE (17:15)
[2017-05-28] MEDS: CIPROFLOXACIN 400 MG PREMIX 200 ML IV SCH ×2 (17:33→23:48)
[2017-05-28] MEDS ORDERED: PILL SPLITTER OTHER PRN (18:00)
[2017-05-28 20:10] VITALS: BP 111/83; PULSE 74; RESP 20; TEMP 97.6; O2SAT 99
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
[2017-05-28] MEDS: ZOLPIDEM TARTRATE 10 MG TAB PO PRN (23:47)
[2017-05-28] MEDS: ALPRAZolam 0.5 MG TAB PO PRN (23:48)
[2017-05-29] VITALS (7 sets, daily range): BP systolic 98–169; BP diastolic 74–118; PULSE 63–85; RESP 16–20; TEMP 96.6–97.7; O2SAT 96–99
[2017-05-29] MEDS: HYDROmorphone HCL PF 1 MG/ML VIAL IV PUSH PRN ×5 (00:48→20:30)
[2017-05-29] MEDS: DIAZEPAM 5 MG TAB PO PRN (03:53)
[2017-05-29] MEDS: oxyCODONE/ACETAMINOPHEN 7.5 MG/325 MG TAB PO PRN ×3 (03:54→13:55)
[2017-05-29] MEDS: LEVOTHYROXINE SODIUM 150 MCG TAB PO SCH (04:58)
[2017-05-29 09:03] LABS: HEMATOCRIT 47.9 % (39.0-51.0); MEAN CELL VOLUME 92.1 FL (80.0-100.0); MEAN CORPUSCULAR HEMOGLOBIN 30.8 PG (27.0-34.0); MEAN CORPUSCULAR HGB CONC 33.4 % (32.0-36.0); PLATELET COUNT 166 TH/MM3 (150-450); RED CELL DISTRIBUTION WIDTH 14.8 % (11.6-17.2); REVIEW FLAG FINAL; WHITE BLOOD COUNT 4.6 TH/MM3 (4.0-11.0)
[2017-05-29 09:08] LABS: CHLORIDE 102 MEQ/L (98-107); POTASSIUM 4.5 MEQ/L (3.5-5.1); SODIUM (NA) 142 MEQ/L (136-145)
[2017-05-29 09:12] LABS: ANION GAP 6 MEQ/L (5-15); BLOOD UREA NITROGEN 11 MG/DL (7-18)
[2017-05-29 09:15] LABS: ALT (GPT) 48 U/L (12-78); AST (GOT) 28 U/L (15-37); GLOMERULAR FILTRATION RATE 59 ML/MIN (>89)
[2017-05-29 09:16] LABS: TOTAL BILIRUBIN ADULT 0.4 MG/DL (0.2-1.0)
[2017-05-29 09:18] LABS: ALKALINE PHOSPHATASE 64 U/L (45-117)
[2017-05-29] MEDS: SODIUM CHLORIDE 0.9% FLUSH 10 ML FLUSH IV FLUSH SCH ×2 (09:18→20:30)
[2017-05-29] MEDS: CIPROFLOXACIN 400 MG PREMIX 200 ML IV SCH ×2 (09:18→17:44)
[2017-05-29] MEDS: ATORVASTATIN 40 MG TAB PO SCH (09:18)
[2017-05-29] MEDS: METOPROLOL SUCCINATE 50 MG EXTENDED RELEASE TAB PO SCH (09:18)
[2017-05-29] MEDS: ESCITALOPRAM OXALATE 10 MG TAB PO SCH (09:18)
[2017-05-29] MEDS: SODIUM CHLOR 0.9% 1000 ML INJ 1,000 ML IV SCH (14:45)
--- NOTE | 2017-05-29 14:51 | HHI.PR ---
Subjective Remarks still c/o right flank pain denies nausea or vomiting bp stable Objective Vitals Vital Signs Date Time Temp Pulse Resp B/P Pulse Ox O2 Delivery O2 Flow Rate FiO2 05/29/17 12:00 97.7 74 20 143/88 98 05/29/17 10:23 18 05/29/17 08:00 97.7 85 20 138/87 97 05/29/17 05:29 149/81 05/29/17 00:20 154/96 05/29/17 00:07 96.6 63 16 169/118 99 05/28/17 20:10 97.6 74 20 111/83 99 05/28/17 16:00 98.1 74 18 142/92 99 I/O 05/28/17 05/28/17 05/28/17 05/29/17 05/29/17 05/29/17 06:59 14:59 22:59 06:59 14:59 22:59 Intake Total 380 ml 850 ml 200 ml 480 ml Output Total 2300 ml 750 ml 2400 ml 800 ml Balance -1920 ml 100 ml -2200 ml -320 ml Intake Oral 380 ml 850 ml 480 ml IV Total 200 ml Output Urine Total 2300 ml 750 ml 2400 ml 800 ml # Bowel Movements 0 Result Diagram: 05/29/17 0755 05/29/17 0755 Imaging Last Impressions Abdomen/Pelvis CT 05/25/17 0000 Signed Impressions: Service Date/Time: Thursday, May 25, 2017 22:04 - CONCLUSION: 1. Suspected 4 mm solitary stone within the common bile duct without dilatation. This can be further evaluated with MRCP if clinically warranted. 2. Prior cholecystectomy. Leo Wolfe Jr., MD Objective Remarks AAOx3 Right CVA tenderness on palpation Abdomen soft, tender to palpation of right upper quadrant. Procedures None Medications and IVs Current Medications Medications (Trade) Dose Ordered Sig/Renetta Route Start Time Stop Time Status Last Admin (NS Flush) 2 ml UNSCH PRN IV FLUSH 05/25/17 23:15 (NS Flush) 2 ml BID IV FLUSH 05/26/17 09:00 05/29/17 09:18 (Zofran Inj) 4 mg Q6H PRN IVP 05/25/17 23:15 (Narcan Inj) 0.4 mg UNSCH PRN IV 05/25/17 23:15 (Dilaudid Pf Inj) 0.2 mg Q3H PRN IV PUSH 05/26/17 00:30 05/29/17 10:33 (Xanax) 0.5 mg Q8H PRN PO 05/26/17 00:15 05/28/17 23:48 (Valium) 5 mg TID PRN PO 05/26/17 00:15 05/29/17 03:53 (Ambien) 10 mg HS PRN PO 05/26/17 00:15 05/28/17 23:47 (Percocet 7.5-325 Mg) 1 tab Q4H PRN PO 05/26/17 14:30 05/29/17 13:55 (Lipitor) 40 mg DAILY PO 05/27/17 09:00 05/29/17 09:18 (Lexapro) 10 mg DAILY PO 05/27/17 09:00 05/29/17 09:18 Levothyroxine Sodium 300 mcg 300 mcg DAILY@06 PO 05/27/17 06:00 05/29/17 04:58 (Cipro 400 Mg Premix) 200 ml @ 200 mls/hr Q8H IV 05/28/17 17:00 05/29/17 09:18 (Toprol Xl) 75 mg DAILY PO 05/29/17 09:00 05/29/17 09:18 (Ativan Inj) 1 mg Q15M PRN IV PUSH 05/28/17 16:45 (Pill Splitter) 1 ea UNSCH PRN OTHER 05/28/17 18:00 Urinary Catheter: No Vascular Central Line Catheter: No A/P Problem List: (1) Severe sepsis ICD Code: A41.9 Status: Resolved Plan: There is sepsis secondary to computer UTI. Present on admission with tachycardia, elevated lactic acid level, leukocytosis. Severe sepsis resolving Treated with IV antibiotics, the patient started on IV Zosyn ID consulted - discussed the case with Dr. Alford. IV Zosyn discontinued and the patient started on IV ciprofloxacin, the patient may be able to be discharge home on oral ciprofloxacin 500 mg by mouth twice a day 14 days. (2) Complicated UTI (urinary tract infection) ICD Code: N39.0 Status: Acute Plan: As above. Patient still complaining of right flank pain. I will start the patient on oxycodone extended release and continue Percocet. We'll increase dose of Dilaudid from 0.2-1 mg IV every 4 hours as needed for breakthrough pain. (3) MELBA (acute kidney injury) ICD Code: N17.9 Status: Resolved Plan: Patient presented with a creatinine of 1.4. Initially improved with IV fluid administration with creatinine trending down to 1.1. Creatinine trending up today up to 1.3. I will start the patient IV fluids. Patient has chronic kidney disease stage II. (4) Paraplegia ICD Code: G82.20 Status: Chronic Plan: Patient needs self-catheterization, putting him at high risk for UTIs. The patient follows up with his urologist regularly. Will need to follow-up with urology as an outpatient. (5) HTN (hypertension) ICD Code: I10 Status: Chronic Plan: Patient with uncontrolled hypertension. 05/29 metoprolol dose increased. BP stable now. (6) Common bile duct stone ICD Code: K80.50 Status: Acute Plan: As seen on CT described above. He'll function tests within normal range. 05/29 gastroenterology consulted. MRCP ordered, however was unable to complete the study because as per his report and able to fit in the machine. (7) Hypothyroidism ICD Code: E03.9 Status: Chronic Plan: Check TSH. Continue levothyroxine at dose taken at home. Assessment and Plan DVT prophylaxis: SCDs. Discharge Planning Discharge pending gastroenterology clearance. Problem Qualifiers (1) Hypothyroidism: Qualified Code: E03.9 - Hypothyroidism, unspecified type Lakhwinder Ho MD May 29, 2017 14:50
[2017-05-29] MEDS ORDERED: oxyCODONE/ACETAMINOPHEN 5 MG/325 MG TAB PO PRN (15:00)
[2017-05-29] MEDS: oxyCODONE/ACETAMINOPHEN 5 MG/325 MG TAB PO PRN (17:44)
[2017-05-29] MEDS: oxyCODONE HCL 10 MG CONTROLLED RELEASE TAB PO SCH (20:29)
[2017-05-29] MEDS: ZOLPIDEM TARTRATE 10 MG TAB PO PRN (22:19)
[2017-05-29] MEDS: ALPRAZolam 0.5 MG TAB PO PRN (22:19)
[2017-05-30] VITALS: BP 138/81; PULSE 80; RESP 20; TEMP 98.5; O2SAT 94
[2017-05-30] MEDS: HYDROmorphone HCL PF 1 MG/ML VIAL IV PUSH PRN ×6 (00:53→22:19)
[2017-05-30] MEDS: SODIUM CHLOR 0.9% 1000 ML INJ 1,000 ML IV SCH ×3 (01:12→18:02)
[2017-05-30] MEDS: CIPROFLOXACIN 400 MG PREMIX 200 ML IV SCH ×2 (01:13→14:07)
[2017-05-30] MEDS: LEVOTHYROXINE SODIUM 150 MCG TAB PO SCH (04:57)
[2017-05-30 08:00] VITALS: BP 157/100; PULSE 79; RESP 16; TEMP 97.2; O2SAT 94
[2017-05-30] MEDS: ATORVASTATIN 40 MG TAB PO SCH (08:34)
[2017-05-30] MEDS: ESCITALOPRAM OXALATE 10 MG TAB PO SCH (08:34)
[2017-05-30] MEDS: METOPROLOL SUCCINATE 50 MG EXTENDED RELEASE TAB PO SCH (08:34)
[2017-05-30] MEDS: oxyCODONE HCL 10 MG CONTROLLED RELEASE TAB PO SCH ×2 (08:34→19:56)
[2017-05-30] MEDS: SODIUM CHLORIDE 0.9% FLUSH 10 ML FLUSH IV FLUSH SCH ×2 (08:35→19:57)
[2017-05-30 08:59] LABS: POTASSIUM 4.3 MEQ/L (3.5-5.1)
[2017-05-30 09:02] LABS: BICARBONATE 33.6 MEQ/L (21.0-32.0)
--- NOTE | 2017-05-30 10:32 | RADRPT ---
EXAM DATE/TIME: 05/30/2017 09:35 [facility] COMPARISON: CT ABDOMEN & PELVIS W/O CONTRAST, May 25, 2017, 22:04. INDICATIONS : Obstruction. MEDICAL HISTORY : None. SURGICAL HISTORY : Cholecystectomy. Fusion, lumbar. Fusion, thoracic. ENCOUNTER: Initial ACUITY: 4-6 days PAIN SCORE: 0/10 LOCATION: Right upper quadrant TECHNIQUE: Multiplanar, multisequence magnetic resonance imaging of the abdomen was performed. High-resolution 3D dataset was utilized to reconstruct maximum-intensity projection (MIP) images. FINDINGS: INTRAHEPATIC BILE DUCTS: Within normal limits. No significant anatomical variant is present. EXTRAHEPATIC BILE DUCTS: The common bile duct measures 10 mm. Filling defect is identified in the distal common bile duct papito esponding to the calcification seen on CT GALLBLADDER: Status post cholecystectomy. LIVER: Normal size and signal intensity. No concerning liver lesion is identified on this non-contrast exam. PANCREAS: The main pancreatic duct is normal in size. There is no significant anatomical variant. Signal inte nsity is within normal limits. No mass is visualized on this non-contrast exam. OTHER: The remaining visualized structures demonstrate no acute abnormality on this non-contrast exam. CONCLUSION: Choledocholithiasis with mild distention the common bile duct but no significant intrahepatic biliary dilatation. Status post cholecystectomy. Bryan Tyler MD on May 30, 2017 at 10:26 Board Certified Radiologist. This report was verified electronically.
[2017-05-30 12:00] VITALS: BP 107/75; PULSE 63; RESP 12; TEMP 97.6; O2SAT 100
[2017-05-30] MEDS ORDERED: GLUCAGON 1 MG/ML VIAL IV ONE (12:00)
[2017-05-30] MEDS ORDERED: ePHEDrine/NS 25 MG/5 ML SYR IV ONE (12:00)
[2017-05-30] MEDS ORDERED: ONDANSETRON HCL 4 MG/2 ML VIAL IV PUSH ONE (12:00)
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
--- NOTE | 2017-05-30 14:25 | HHI.IDPN ---
Subjective Subjective Remarks doing better transfrred for ERCP no fever nl WBC Antibiotics CIPRO IV Allergies: Coded Allergies: Vancomycin (Verified Adverse Reaction, Intermediate, AFFECTS BLOOD CELLS, 05/25/17) *MDRO Multi-Drug Resistant Organism (Verified Adverse Reaction, Unknown, ESBL, 05/25/17) ESBL (urine & blood) - 01/13/17 Objective . Vital Signs Date Time Temp Pulse Resp B/P Pulse Ox O2 Delivery O2 Flow Rate FiO2 05/30/17 09:55 20 05/30/17 09:45 20 05/30/17 08:00 97.2 79 16 157/100 94 05/30/17 04:00 05/30/17 00:00 98.5 80 20 138/81 94 05/29/17 21:28 97.1 79 18 130/86 97 05/29/17 16:00 96.9 80 20 98/74 96 05/29/17 05/29/17 05/30/17 15:00 23:00 07:00 Intake Total 480 ml 2056 ml Output Total 800 ml 600 ml 1300 ml Balance -320 ml -600 ml 756 ml Intake Oral 480 ml 760 ml IV Total 1296 ml Output Urine Total 800 ml 600 ml 1300 ml # Bowel Movements 0 . Laboratory Tests Test 05/29/17 07:55 White Blood Count 4.6 TH/MM3 Red Blood Count 5.20 MIL/MM3 Hemoglobin 16.0 GM/DL Hematocrit 47.9 % Mean Corpuscular Volume 92.1 FL Mean Corpuscular Hemoglobin 30.8 PG Mean Corpuscular Hemoglobin 33.4 % Concent Red Cell Distribution Width 14.8 % Platelet Count 166 TH/MM3 Mean Platelet Volume 7.6 FL Laboratory Tests Test 05/29/17 05/30/17 07:55 08:04 Sodium Level 142 MEQ/L 141 MEQ/L Potassium Level 4.5 MEQ/L 4.3 MEQ/L Chloride Level 102 MEQ/L 102 MEQ/L Carbon Dioxide Level 34.0 MEQ/L 33.6 MEQ/L Anion Gap 6 MEQ/L 5 MEQ/L Blood Urea Nitrogen 11 MG/DL 12 MG/DL Creatinine 1.30 MG/DL 1.10 MG/DL Estimat Glomerular Filtration 59 ML/MIN 72 ML/MIN Rate Random Glucose 165 MG/DL 93 MG/DL Calcium Level 10.1 MG/DL 10.6 MG/DL Total Bilirubin 0.4 MG/DL Aspartate Amino Transf 28 U/L (AST/SGOT) Alanine Aminotransferase 48 U/L (ALT/SGPT) Alkaline Phosphatase 64 U/L Total Protein 6.6 GM/DL Albumin 3.1 GM/DL Thyroid Stimulating Hormone 2.310 uIU/ML 3rd Gen Imaging Last Impressions Cholangiopancreatography MRI 05/30/17 0000 Signed Impressions: Service Date/Time: Tuesday, May 30, 2017 09:35 - CONCLUSION: Choledocholithiasis with mild distention the common bile duct but no significant intrahepatic biliary dilatation. Status post cholecystectomy. Bryan Tyler MD Abdomen/Pelvis CT 05/25/17 0000 Signed Impressions: Service Date/Time: Thursday, May 25, 2017 22:04 - CONCLUSION: 1. Suspected 4 mm solitary stone within the common bile duct without dilatation. This can be further evaluated with MRCP if clinically warranted. 2. Prior cholecystectomy. Leo Wolfe Jr., MD Physical Exam CONSTITUTIONAL/GENERAL: This is an adequately nourished patient, in no apparent distress. TUBES/LINES/DRAINS: SKIN: No jaundice, rashes, or lesions. Ecchymoses on upper extremities. No wounds seen anteriorly. Skin temperature appropriate. Not diaphoretic. Multiple tatoos GENITOURINARY: Cervantes catheter in place with clear urine NEUROLOGICAL: Awake and alert. Motor and sensory grossly normal BUE. Follows commands. Clear speech. Moves b/l lower extremities 3/5 PSYCHIATRIC:calm pleasant Assessment & Plan Remarks Remote spinal cord injury with paraplegia Nuerogenic bladder, no e/o kidney stones Gallstones, here for ERCP ESBL + E.coli UTI Recent freqquent UTIs -cont cipro x14 days, switch to PO Carmenza Alford MD May 30, 2017 14:25
[2017-05-30] MEDS ORDERED: fentaNYL CITRATE 250 MCG/5 ML AMP ONE (14:52)
[2017-05-30] MEDS ORDERED: IOHEXOL 300 MG/ML 50 ML BTL (for RAD DIAG) ONE (15:32)
[2017-05-30] MEDS ORDERED: PROPOFOL 200 MG/20 ML AMP IV ONE ×2 (15:37→15:39)
[2017-05-30] MEDS ORDERED: SUGAMMADEX SODIUM 200 MG/2 ML VIAL IV PUSH ONE ×2 (15:44)
[2017-05-30] MEDS ORDERED: DO NOT ADM ANY ANTICOAGULANT DRUGS PRN (16:31)
[2017-05-30 18:45] VITALS: BP 113/74; PULSE 92; RESP 11; TEMP 98.1; O2SAT 97
[2017-05-30] MEDS: oxyCODONE/ACETAMINOPHEN 5 MG/325 MG TAB PO PRN (18:51)
--- NOTE | 2017-05-30 19:42 | HHI.GIFU ---
Subjective Remarks feels ok, no abdominal pain, MRCP c/w CBD stones Objective Vitals I&O Vital Signs Date Time Temp Pulse Resp B/P Pulse Ox O2 Delivery O2 Flow Rate FiO2 05/30/17 18:54 18 05/30/17 18:45 98.1 92 11 113/74 97 05/30/17 17:58 77 16 135/65 94 Nasal Cannula 2 05/30/17 17:15 77 16 131/69 93 Nasal Cannula 2 05/30/17 17:00 75 16 135/69 93 Nasal Cannula 2 05/30/17 16:45 88 16 129/78 99 Nasal Cannula 2 05/30/17 16:30 80 16 137/97 99 Nasal Cannula 2 05/30/17 16:28 97.6 93 16 134/93 99 Nasal Cannula 2 05/30/17 12:00 97.6 63 12 107/75 100 05/30/17 09:45 20 05/30/17 08:00 97.2 79 16 157/100 94 05/30/17 04:00 05/30/17 00:00 98.5 80 20 138/81 94 05/29/17 21:28 97.1 79 18 130/86 97 I/O 05/29/17 05/29/17 05/29/17 05/30/17 05/30/17 05/30/17 07:00 15:00 23:00 07:00 15:00 23:00 Intake Total 200 ml 480 ml 2056 ml 120 ml 700 ml Output Total 2400 ml 800 ml 600 ml 1300 ml 400 ml 0 ml Balance -2200 ml -320 ml -600 ml 756 ml -280 ml 700 ml Intake Oral 480 ml 760 ml 120 ml 0 ml IV Total 200 ml 1296 ml 0 ml Other 700 ml Output Urine Total 2400 ml 800 ml 600 ml 1300 ml 400 ml 0 ml Estimated Blood Loss 0 ml Other 0 ml # Voids 2 # Bowel Movements 0 Laboratory Laboratory Tests Test 05/30/17 08:04 Sodium Level 141 Potassium Level 4.3 Chloride Level 102 Carbon Dioxide Level 33.6 Anion Gap 5 Blood Urea Nitrogen 12 Creatinine 1.10 Estimat Glomerular Filtration 72 Rate Random Glucose 93 Calcium Level 10.6 Date/Time Procedure Status Source Growth 05/25/17 21:05 Urine Culture - Final Complete Urine Catheterized Urine Escherichia Coli Esbl Positive 05/25/17 20:55 Aerobic Blood Culture - Final Complete Blood Peripheral NO GROWTH IN 5 DAYS 05/25/17 20:55 Anaerobic Blood Culture - Final Complete Blood Peripheral NO GROWTH IN 5 DAYS Physical Exam HEENT: Pupils round and reactive to light; normocephalic; atraumatic; no jaundice. Throat is clear. NECK: Neck is supple, no JVD, no lymphadenopathy. CHEST: Chest is clear to auscultation and percussion. CARDIAC: Regular rate and rhythm with no murmur gallop or rubs. ABDOMEN: Soft, nondistended, nontender; no hepatosplenomegaly; bowel sounds are present in all four quadrants. EXTREMITIES: No clubbing, cyanosis, or edema. muscle wasting in the lower ext. SKIN: Normal; no rash; no jaundice. 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 paraplegic Assessment and Plan Plan MRCP showed dilated CBD and filling defects patient had ERCP with stones removal doing well now we will check LFTs in am NPO until am Marina Ruelas MD May 30, 2017 19:41
[2017-05-30] MEDS: CIPROFLOXACIN 500 MG TAB PO SCH (19:55)
[2017-05-30 20:00] VITALS: BP 113/74; PULSE 92; RESP 18; TEMP 98.1; O2SAT 97
[2017-05-30] MEDS: ALPRAZolam 0.5 MG TAB PO PRN (23:36)
[2017-05-30] MEDS: ZOLPIDEM TARTRATE 10 MG TAB PO PRN (23:36)
[2017-05-31] VITALS: BP 128/71; PULSE 82; RESP 19; TEMP 96.8; O2SAT 95
[2017-05-31] MEDS: oxyCODONE/ACETAMINOPHEN 5 MG/325 MG TAB PO PRN ×6 (02:18→23:17)
[2017-05-31] MEDS: LEVOTHYROXINE SODIUM 150 MCG TAB PO SCH (04:46)
[2017-05-31] MEDS: HYDROmorphone HCL PF 1 MG/ML VIAL IV PUSH PRN ×5 (04:50→21:56)
[2017-05-31] MEDS: SODIUM CHLOR 0.9% 1000 ML INJ 1,000 ML IV SCH ×2 (04:54→16:45)
[2017-05-31 06:28] LABS: INDIRECT BILIRUBIN 0.8 MG/DL (0.0-0.8); TOTAL BILIRUBIN ADULT 2.3 MG/DL (0.2-1.0)
--- NOTE | 2017-05-31 07:21 | MR ---
cc: USHA MANCIA M.D. DATE OF 1970 DATE OF PROCEDURE 05/30/2017 PROCEDURE ERCP with sphincterotomy and stone removal. INDICATION A 46-year-old gentleman who has dilated common bile duct on the MRCP with filling defect consistent with stone. PROCEDURE After informing the patient about the procedure and complications, consent was signed. The patient was placed on his back. Adequate sedation was achieved by propofol and then the patient was intubated and sedated. The scope was placed in the mouth, advanced under video guidance to the second portion of the duodenum. The ampulla was identified. Cannulation was performed. Sphincterotomy was performed and then a sweep of the duct was done by 11.5 and 15 mm balloon with a few small stones retrieved without any difficulty. An occluded cholangiogram at the end of the case was negative for any filling defect with good bowel fluid from the common bile duct. The patient recovered without any immediate complication. FINDINGS 1. EGD limited exam normal. 2. Common bile duct dilation with filling defect consistent with stones, removed by balloon RECOMMENDATIONS 1. N.p.o. until the morning. 2. Liver function tests in the morning. MD BRITTANY Duenas/DANIELLE /7:43 PM /7:22 AM
[2017-05-31 08:00] VITALS: BP 124/86; PULSE 86; RESP 16; TEMP 95.5; O2SAT 99
[2017-05-31] MEDS: CIPROFLOXACIN 500 MG TAB PO SCH ×2 (08:19→20:26)
[2017-05-31] MEDS: oxyCODONE HCL 10 MG CONTROLLED RELEASE TAB PO SCH ×2 (08:19→20:26)
[2017-05-31] MEDS: METOPROLOL SUCCINATE 50 MG EXTENDED RELEASE TAB PO SCH (08:19)
[2017-05-31] MEDS: ATORVASTATIN 40 MG TAB PO SCH (08:19)
[2017-05-31] MEDS: ESCITALOPRAM OXALATE 10 MG TAB PO SCH (08:21)
[2017-05-31] MEDS: SODIUM CHLORIDE 0.9% FLUSH 10 ML FLUSH IV FLUSH SCH ×2 (08:21→20:24)
--- NOTE | 2017-05-31 11:40 | HHI.GIFU ---
Subjective Remarks Resting in bed. No n/v. Continues to have RUQ pain radiating to back, but states improved from yesterday. Requesting diet. Explained to patient that he can have clears, but will need to stay on clear liquids until we have repeat labs later this afternoon. (Millie Cowart) Objective Vitals I&O Vital Signs Date Time Temp Pulse Resp B/P Pulse Ox O2 Delivery O2 Flow Rate FiO2 05/31/17 08:00 95.5 86 16 124/86 99 05/31/17 04:21 21 05/31/17 00:00 96.8 82 19 128/71 95 05/30/17 20:00 98.1 92 18 113/74 97 05/30/17 18:54 18 05/30/17 18:45 98.1 92 11 113/74 97 05/30/17 17:58 77 16 135/65 94 Nasal Cannula 2 05/30/17 17:15 77 16 131/69 93 Nasal Cannula 2 05/30/17 17:00 75 16 135/69 93 Nasal Cannula 2 05/30/17 16:45 88 16 129/78 99 Nasal Cannula 2 05/30/17 16:30 80 16 137/97 99 Nasal Cannula 2 05/30/17 16:28 97.6 93 16 134/93 99 Nasal Cannula 2 05/30/17 12:00 97.6 63 12 107/75 100 I/O 05/30/17 05/30/17 05/30/17 05/31/17 05/31/17 05/31/17 07:00 15:00 23:00 07:00 15:00 23:00 Intake Total 2056 ml 120 ml 1115 ml 1106 ml Output Total 1300 ml 400 ml 150 ml 1800 ml Balance 756 ml -280 ml 965 ml -694 ml Intake Oral 760 ml 120 ml 240 ml 240 ml IV Total 1296 ml 175 ml 866 ml Other 700 ml Output Urine Total 1300 ml 400 ml 150 ml 1800 ml Estimated Blood Loss 0 ml Other 0 ml # Voids 2 # Bowel Movements 0 0 0 Laboratory Laboratory Tests Test 05/31/17 04:57 Total Bilirubin 2.3 Direct Bilirubin 1.5 Indirect Bilirubin 0.8 Aspartate Amino Transf 259 (AST/SGOT) Alanine Aminotransferase 238 (ALT/SGPT) Alkaline Phosphatase 119 Total Protein 6.6 Albumin 3.2 Imaging Last Impressions Cholangiopancreatography MRI 05/30/17 0000 Signed Impressions: Service Date/Time: Tuesday, May 30, 2017 09:35 - CONCLUSION: Choledocholithiasis with mild distention the common bile duct but no significant intrahepatic biliary dilatation. Status post cholecystectomy. Bryan Tyler MD Abdomen/Pelvis CT 05/25/17 0000 Signed Impressions: Service Date/Time: Thursday, May 25, 2017 22:04 - CONCLUSION: 1. Suspected 4 mm solitary stone within the common bile duct without dilatation. This can be further evaluated with MRCP if clinically warranted. 2. Prior cholecystectomy. Leo Wolfe Jr., MD Physical Exam HEENT: Normocephalic; atraumatic; no jaundice. CHEST: CTA CARDIAC: RRR ABDOMEN: Soft, nondistended, mild epigastric tenderness; no hepatosplenomegaly ; bowel sounds are present in all four quadrants. EXTREMITIES: No clubbing, cyanosis, or edema. SKIN: Normal; no rash; no jaundice. HUMAN RESOURCES COMPLIANCE MANAGER: No focal deficits; alert and oriented times three. paraplegic (Millie Cowart) Assessment and Plan Plan ASSESSMENT: - Choledocholithiasis with dilated common bile duct. Abdomen/Pelvis CT (05/25/17 )-----> 1. Suspected 4 mm solitary stone within the common bile duct without dilatation. This can be further evaluated with MRCP if clinically warranted. 2. Prior cholecystectomy. MRCP (05/30/17)---> Choledocholithiasis with mild distention the common bile duct but no significant intrahepatic biliary dilatation. Status post cholecystectomy. S/P ERCP with sphincterotomy and stone removal (05/30/17)-----> EGD limited exam normal, common bile duct dilatation with filling defect consistent with stones removed by balloon. NPO. LFTs were normal on 05/29, pt with increased LFTs overnight with T. Bili 2.3, direct 1.5, indirect 0.8, AST 259, ALT 238, Alk Phosph 119. Still has epigastric pain, but states improved. Requesting diet. Will start clear liquids, check lipase to rule out post procedure pancreatitis, and recheck LFTs at 1400. - Elevated LFTs. Worsening of LFTs today as above. ? possible related to instrumentation vs. ? post procedure pancreatitis. Will check lipase and repeat LFTs at 1400. - Severe sepsis secondary to complicated UTI in male with neurogenic bladder. UCx with E. Coli. Cipro x 14 days per ID. - Remote spinal cord injury with paraplegia, hypothyroidism, htn, hyperlipidemia per attending. PLAN: - Clear liquids - Lipase level today - LFT at 1400 - PPI - Cipro per ID recommendations - LFT in am - Supportive care - Further recommendations to follow based on results of above - Pt seen and examined by Dr. Jordan and myself and this note is written on his behalf (Millie Cowart) Physician Comments agree with above (Sharee Jordan MD) Millie Cowart May 31, 2017 11:40 Sharee Jordan MD Jun 01, 2017 08:11
[2017-05-31 12:00] VITALS: BP 123/73; PULSE 79; RESP 14; TEMP 96.3; O2SAT 93
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
[2017-05-31 16:00] VITALS: BP 108/58; PULSE 85; RESP 12; TEMP 95.8; O2SAT 96
[2017-05-31 18:09] LABS: INDIRECT BILIRUBIN 0.6 MG/DL (0.0-0.8); TOTAL BILIRUBIN ADULT 1.4 MG/DL (0.2-1.0)
[2017-05-31 18:13] VITALS: O2SAT 93
[2017-05-31 20:00] VITALS: BP 121/77; PULSE 83; RESP 19; TEMP 97.2; O2SAT 96
--- NOTE | 2017-05-31 22:48 | HHI.IDPN ---
Subjective Subjective Remarks sp ERCP no fever nl WBC delayed entry - pt was seen earlier today around 1800 pt cont to c/o R back pain Antibiotics CIPRO po Allergies: Coded Allergies: Vancomycin (Verified Adverse Reaction, Intermediate, AFFECTS BLOOD CELLS, 05/25/17) *MDRO Multi-Drug Resistant Organism (Verified Adverse Reaction, Unknown, ESBL, 05/31/17) ESBL (urine & blood) - 01/13/17 ESBL (urine) 05/25/17 Objective . Vital Signs Date Time Temp Pulse Resp B/P Pulse Ox O2 Delivery O2 Flow Rate FiO2 05/31/17 20:00 97.2 83 19 121/77 96 05/31/17 18:13 93 21 05/31/17 16:00 95.8 85 12 108/58 96 05/31/17 12:00 96.3 79 14 123/73 93 05/31/17 08:00 95.5 86 16 124/86 99 05/31/17 04:21 21 05/31/17 00:00 96.8 82 19 128/71 95 05/30/17 05/30/17 05/31/17 15:00 23:00 07:00 Intake Total 120 ml 1115 ml 1106 ml Output Total 400 ml 150 ml 1800 ml Balance -280 ml 965 ml -694 ml Intake Oral 120 ml 240 ml 240 ml IV Total 175 ml 866 ml Other 700 ml Output Urine Total 400 ml 150 ml 1800 ml Estimated Blood Loss 0 ml Other 0 ml # Voids 2 # Bowel Movements 0 0 . Laboratory Tests Test 05/30/17 05/31/17 05/31/17 08:04 04:57 16:42 Sodium Level 141 MEQ/L Potassium Level 4.3 MEQ/L Chloride Level 102 MEQ/L Carbon Dioxide Level 33.6 MEQ/L Anion Gap 5 MEQ/L Blood Urea Nitrogen 12 MG/DL Creatinine 1.10 MG/DL Estimat Glomerular Filtration 72 ML/MIN Rate Random Glucose 93 MG/DL Calcium Level 10.6 MG/DL Total Bilirubin 2.3 MG/DL 1.4 MG/DL Direct Bilirubin 1.5 MG/DL 0.8 MG/DL Indirect Bilirubin 0.8 MG/DL 0.6 MG/DL Aspartate Amino Transf 259 U/L 280 U/L (AST/SGOT) Alanine Aminotransferase 238 U/L 282 U/L (ALT/SGPT) Alkaline Phosphatase 119 U/L 124 U/L Total Protein 6.6 GM/DL 6.4 GM/DL Albumin 3.2 GM/DL 3.0 GM/DL Lipase 121 U/L 612 U/L Imaging Last Impressions Cholangiopancreatography MRI 05/30/17 0000 Signed Impressions: Service Date/Time: Tuesday, May 30, 2017 09:35 - CONCLUSION: Choledocholithiasis with mild distention the common bile duct but no significant intrahepatic biliary dilatation. Status post cholecystectomy. Bryan Tyler MD Abdomen/Pelvis CT 05/25/17 0000 Signed Impressions: Service Date/Time: Thursday, May 25, 2017 22:04 - CONCLUSION: 1. Suspected 4 mm solitary stone within the common bile duct without dilatation. This can be further evaluated with MRCP if clinically warranted. 2. Prior cholecystectomy. Leo Wolfe Jr., MD Physical Exam CONSTITUTIONAL/GENERAL: This is an adequately nourished patient, in no apparent distress. TUBES/LINES/DRAINS: SKIN: No jaundice, rashes, or lesions. Ecchymoses on upper extremities. No wounds seen anteriorly. Skin temperature appropriate. Not diaphoretic. Multiple tatoos EYES: No scleral icterus. No injection or drainage. Fundi not examined. ENT: Hearing grossly normal. Nose without bleeding or purulent drainage. Throat without visible erythema, exudates, masses, or lesions. CARDIOVASCULAR: Regular rate and rhythm without murmurs, gallops, or rubs. No JVD. Peripheral pulses symmetric. RESPIRATORY/CHEST: Symmetric, unlabored respirations. Clear to auscultation. Breath sounds equal bilaterally. No wheezes, rales, or rhonchi. GASTROINTESTINAL: Abdomen soft, non-tender, nondistended. No hepato-splenomegaly , or palpable masses. No guarding. Bowel sounds present. GENITOURINARY: Cervantes catheter in place with clear urine No CVA tenderness NEUROLOGICAL: Awake and alert. Motor and sensory grossly normal BUE. Follows commands. Clear speech. Moves b/l lower extremities 3/5 PSYCHIATRIC:calm pleasant Assessment & Plan Remarks Remote spinal cord injury with paraplegia Nuerogenic bladder, no e/o kidney stones Gallstones, here for ERCP ESBL + E.coli UTI Recent freqquent UTIs Persistent R side back pain, new since admission - In january no kidney srtoned per US -cont cipro x14 days, switch to PO - needs w/u for the pain - will rechk urine - doubt kidney stones, but if that back pain persist will repeat US Carmenza Alford MD May 31, 2017 22:48
[2017-05-31] MEDS: ALPRAZolam 0.5 MG TAB PO PRN (23:16)
[2017-05-31] MEDS: ZOLPIDEM TARTRATE 10 MG TAB PO PRN (23:17)
[2017-06-01] VITALS: BP 147/87; PULSE 85; RESP 20; TEMP 96.5; O2SAT 96
[2017-06-01 00:21] LABS: BLOOD, URINE TRACE (NEG); GLUCOSE,URINE 300 mg/dL (NEG); KETONE, URINE NEG (NEG); MUCUS URINE FEW /lpf (OCC); NITRITE,URINE NEG (NEG); URINE COLOR YELLOW (YELLW/STRAW)
[2017-06-01 00:23] LABS: COMMENT (UR) CATH-CULT NOT IND; CULTURE IF INDICATED CATH CULTURE NOT IND
[2017-06-01] MEDS: SODIUM CHLOR 0.9% 1000 ML INJ 1,000 ML IV SCH ×3 (01:44→21:31)
[2017-06-01] MEDS: HYDROmorphone HCL PF 1 MG/ML VIAL IV PUSH PRN ×5 (01:44→19:53)
[2017-06-01] MEDS: oxyCODONE/ACETAMINOPHEN 5 MG/325 MG TAB PO PRN ×2 (04:05→09:28)
[2017-06-01] MEDS: DIAZEPAM 5 MG TAB PO PRN ×2 (04:28→18:28)
[2017-06-01] MEDS: LEVOTHYROXINE SODIUM 150 MCG TAB PO SCH (05:53)
[2017-06-01 07:28] LABS: INDIRECT BILIRUBIN 0.5 MG/DL (0.0-0.8); TOTAL BILIRUBIN ADULT 0.8 MG/DL (0.2-1.0)
[2017-06-01 08:00] VITALS: BP 184/92; PULSE 91; RESP 18; TEMP 97.9; O2SAT 99
[2017-06-01] MEDS: METOPROLOL SUCCINATE 50 MG EXTENDED RELEASE TAB PO SCH (08:29)
[2017-06-01] MEDS: ATORVASTATIN 40 MG TAB PO SCH (08:29)
[2017-06-01] MEDS: oxyCODONE HCL 10 MG CONTROLLED RELEASE TAB PO SCH ×2 (08:29→21:32)
[2017-06-01] MEDS: CIPROFLOXACIN 500 MG TAB PO SCH ×2 (08:29→21:32)
[2017-06-01] MEDS: ESCITALOPRAM OXALATE 10 MG TAB PO SCH (08:29)
[2017-06-01] MEDS: SODIUM CHLORIDE 0.9% FLUSH 10 ML FLUSH IV FLUSH SCH ×2 (08:30→21:00)
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
[2017-06-01 12:00] VITALS: BP 141/100; PULSE 89; RESP 16; TEMP 98.1; O2SAT 97
[2017-06-01] MEDS: NICOTINE 14 MG/24 HR PATCH T-DERMAL SCH (12:50)
[2017-06-01 13:02] VITALS: O2SAT 94
[2017-06-01 16:00] VITALS: BP 141/90; PULSE 88; RESP 17; TEMP 96.7; O2SAT 98
--- NOTE | 2017-06-01 16:05 | HHI.GIFU ---
Subjective Remarks Resting in bed. C/O right sided lower back pain. States none of the pain meds other than dilaudid help with this and is. No n/v. no abdominal pain. Tolerating diet. (Millie Cowart) Objective Vitals I&O Vital Signs Date Time Temp Pulse Resp B/P Pulse Ox O2 Delivery O2 Flow Rate FiO2 06/01/17 13:02 94 06/01/17 12:00 98.1 89 16 141/100 97 06/01/17 08:00 97.9 91 18 184/92 99 06/01/17 00:00 96.5 85 20 147/87 96 05/31/17 20:00 97.2 83 19 121/77 96 05/31/17 18:13 93 21 05/31/17 16:00 95.8 85 12 108/58 96 I/O 05/31/17 05/31/17 05/31/17 06/01/17 06/01/17 06/01/17 06:59 14:59 22:59 06:59 14:59 22:59 Intake Total 1106 ml 960 ml 1611 ml 1006 ml 2213 ml Output Total 1800 ml 1500 ml 3100 ml 2175 ml Balance -694 ml -540 ml 1611 ml -2094 ml 38 ml Intake Oral 240 ml 960 ml 600 ml 1440 ml IV Total 866 ml 1611 ml 406 ml 773 ml Output Urine Total 1800 ml 1500 ml 3100 ml 2175 ml # Bowel Movements 0 0 0 Laboratory Laboratory Tests Test 05/31/17 05/31/17 06/01/17 16:42 23:32 06:20 Total Bilirubin 1.4 0.8 Direct Bilirubin 0.8 0.3 Indirect Bilirubin 0.6 0.5 Aspartate Amino Transf 280 231 (AST/SGOT) Alanine Aminotransferase 282 302 (ALT/SGPT) Alkaline Phosphatase 124 141 Total Protein 6.4 6.3 Albumin 3.0 3.1 Lipase 612 396 Urine Color YELLOW Urine Turbidity CLEAR Urine pH 6.0 Urine Specific [place] 1.010 Urine Protein NEG Urine Glucose (UA) 300 Urine Ketones NEG Urine Occult Blood TRACE Urine Nitrite NEG Urine Bilirubin NEG Urine Urobilinogen LESS THAN 2.0 Urine Leukocyte Esterase TRACE Urine RBC 11 Urine WBC 2 Urine Mucus FEW Microscopic Urinalysis Comment CATH-CULT NOT IND Imaging Last Impressions Cholangiopancreatography MRI 05/30/17 0000 Signed Impressions: Service Date/Time: Tuesday, May 30, 2017 09:35 - CONCLUSION: Choledocholithiasis with mild distention the common bile duct but no significant intrahepatic biliary dilatation. Status post cholecystectomy. Bryan Tyler MD Abdomen/Pelvis CT 05/25/17 0000 Signed Impressions: Service Date/Time: Thursday, May 25, 2017 22:04 - CONCLUSION: 1. Suspected 4 mm solitary stone within the common bile duct without dilatation. This can be further evaluated with MRCP if clinically warranted. 2. Prior cholecystectomy. Leo Wolfe Jr., MD Physical Exam HEENT: Normocephalic; atraumatic; no jaundice. CHEST: CTA CARDIAC: RRR ABDOMEN: Soft, nondistended, nontender; no hepatosplenomegaly; bowel sounds are present in all four quadrants. EXTREMITIES: No clubbing, cyanosis, or edema. SKIN: Normal; no rash; no jaundice. THEATRE DIRECTOR: No focal deficits; alert and oriented times three. paraplegic (Millie Cowart) Assessment and Plan Plan ASSESSMENT: - Choledocholithiasis with dilated common bile duct. Abdomen/Pelvis CT (05/25/17 )-----> 1. Suspected 4 mm solitary stone within the common bile duct without dilatation. This can be further evaluated with MRCP if clinically warranted. 2. Prior cholecystectomy. MRCP (05/30/17)---> Choledocholithiasis with mild distention the common bile duct but no significant intrahepatic biliary dilatation. Status post cholecystectomy. S/P ERCP with sphincterotomy and stone removal (05/30/17)-----> EGD limited exam normal, common bile duct dilatation with filling defect consistent with stones removed by balloon. NPO. LFTs were normal on 05/29, but increased after procedure to T. Bili 2.3, direct 1.5, indirect 0.8, AST 259, ALT 238, Alk Phosph 119. Lipase was mildly elevated 612, down to 396 today. LFTs with bilirubin 0.8, AST 231, ALT 302, Alk Phosph 141. Tolerating diet, this was advanced to regular diet. No n/v, no abdominal pain. His pain is in his lower back on right side. - Elevated LFTs. Improving, Most likely related to instrumentation, but will recheck in am to make sure they continue to trend down. - Severe sepsis secondary to complicated UTI in male with neurogenic bladder. UCx with E. Coli. Cipro x 14 days per ID. - Remote spinal cord injury with paraplegia, hypothyroidism, htn, hyperlipidemia per attending. PLAN: - TRENT - PPI - Cipro per ID recommendations - LFT in am - Supportive care - Further recommendations to follow based on results of above - Pt seen and examined by Dr. Jordan and myself and this note is written on his behalf (Millie Cowart) Physician Comments seen, examined agree with above advance diet (Sharee Jordan MD) Milile Cowart Jun 01, 2017 16:05 Sharee Jordan MD Jun 01, 2017 16:32
--- NOTE | 2017-06-01 16:19 | RADRPT ---
EXAM DATE/TIME: 06/01/2017 15:35 [facility] COMPARISON: CT ABDOMEN & PELVIS W/O CONTRAST, May 25, 2017, 22:04. US KIDNEY/RENAL/BLADDER, January 14, 2017, 11: 38. INDICATIONS : Flank pain. MEDICAL HISTORY : Hypothyroidism. Hypercholesterolemia. Hypertension. Seizures. Paraplegia. Sleep apnea. Colitis. Kidne y stones. Blood transfusion. Herniorrhaphy. MRSA. SURGICAL HISTORY : Tonsillectomy. Cholecystectomy. Appendectomy. Spinal fusion. Umbilical hernia repair. ENCOUNTER: Subsequent ACUITY: 1 day PAIN SCORE: 6/10 LOCATION: Bilateral flank MEASUREMENTS: RIGHT KIDNEY: 13.5 x 6.7 x 6.7 cm LEFT KIDNEY: 13.6 x 6.9 x 6.4 cm FINDINGS: RIGHT KIDNEY: Renal cortex is normal in thickness and echotexture. No hydronephrosis, stone, or mass. LEFT KIDNEY: Renal cortex is normal in thickness and echotexture. No hydronephrosis, stone, or mass. BLADDER: Within normal limits given the degree of distension. CONCLUSION: Normal examination. Yogi Guzmán MD on June 01, 2017 at 16:16 Board Certified Radiologist. This report was verified electronically.
[2017-06-01 20:00] VITALS: BP 129/78; PULSE 100; RESP 20; TEMP 98; O2SAT 97
[2017-06-01] MEDS: ALPRAZolam 0.5 MG TAB PO PRN (21:31)
[2017-06-01] MEDS: ZOLPIDEM TARTRATE 10 MG TAB PO PRN (23:10)
[2017-06-02] VITALS: BP 149/89; PULSE 88; RESP 20; TEMP 97.3; O2SAT 99
[2017-06-02] MEDS: HYDROmorphone HCL PF 1 MG/ML VIAL IV PUSH PRN ×6 (01:37→23:28)
[2017-06-02] MEDS: DIAZEPAM 5 MG TAB PO PRN ×4 (01:37→17:39)
[2017-06-02] MEDS: ALPRAZolam 0.5 MG TAB PO PRN (05:39)
[2017-06-02] MEDS: LEVOTHYROXINE SODIUM 150 MCG TAB PO SCH (05:39)
[2017-06-02 07:42] LABS: ALKALINE PHOSPHATASE 129 U/L (45-117); TOTAL BILIRUBIN ADULT 0.4 MG/DL (0.2-1.0)
[2017-06-02 07:46] LABS: ALT (GPT) 227 U/L (12-78); ANION GAP 7 MEQ/L (5-15); AST (GOT) 106 U/L (15-37); BICARBONATE 25.5 MEQ/L (21.0-32.0); BLOOD UREA NITROGEN 8 MG/DL (7-18); CHLORIDE 107 MEQ/L (98-107); GLOMERULAR FILTRATION RATE 92 ML/MIN (>89); SODIUM (NA) 139 MEQ/L (136-145)
[2017-06-02 08:00] VITALS: BP 135/77; PULSE 79; RESP 16; TEMP 98.7; O2SAT 96
[2017-06-02] MEDS: CIPROFLOXACIN 500 MG TAB PO SCH ×2 (08:23→19:56)
[2017-06-02] MEDS: NICOTINE 14 MG/24 HR PATCH T-DERMAL SCH (08:23)
[2017-06-02] MEDS: METOPROLOL SUCCINATE 50 MG EXTENDED RELEASE TAB PO SCH (08:23)
[2017-06-02] MEDS: oxyCODONE HCL 10 MG CONTROLLED RELEASE TAB PO SCH ×2 (08:23→19:56)
[2017-06-02] MEDS: SODIUM CHLOR 0.9% 1000 ML INJ 1,000 ML IV SCH ×3 (08:24→19:59)
[2017-06-02] MEDS: ATORVASTATIN 40 MG TAB PO SCH (08:24)
[2017-06-02] MEDS: ESCITALOPRAM OXALATE 10 MG TAB PO SCH (08:24)
[2017-06-02] MEDS: SODIUM CHLORIDE 0.9% FLUSH 10 ML FLUSH IV FLUSH SCH ×2 (08:24→19:57)
[2017-06-02] MEDS: REMOVE OLD PATCH T-DERMAL SCH (09:00)
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
[2017-06-02 12:00] VITALS: BP 141/83; PULSE 84; RESP 16; TEMP 97.8; O2SAT 98
--- NOTE | 2017-06-02 14:13 | HHI.PR ---
Addendum to Inpatient Note Additional Information repeat UA and US unremarkable BAck [pain to be w/u per primary team complete cipro as previously recommended will sign off Carmenza Alford MD Jun 02, 2017 14:13
[2017-06-02 16:00] VITALS: BP 136/68; PULSE 78; RESP 16; TEMP 97.3; O2SAT 97
--- NOTE | 2017-06-02 16:42 | HHI.GIFU ---
Subjective Remarks Pt resting in bed. Tolerated first "real" meal yesterday, no problems. No pain , n/v. (Yoanna Ruiz) Objective Vitals I&O Vital Signs Date Time Temp Pulse Resp B/P Pulse Ox O2 Delivery O2 Flow Rate FiO2 06/02/17 16:00 97.3 78 16 136/68 97 06/02/17 12:00 97.8 84 16 141/83 98 06/02/17 08:00 98.7 79 16 135/77 96 06/02/17 00:00 97.3 88 20 149/89 99 06/01/17 22:36 21 06/01/17 20:00 98.0 100 20 129/78 97 I/O 06/01/17 06/01/17 06/01/17 06/02/17 06/02/17 06/02/17 07:00 15:00 23:00 07:00 15:00 23:00 Intake Total 886 ml 2213 ml 1578 ml 1133 ml 2292 ml Output Total 2500 ml 2175 ml 400 ml 1000 ml 2050 ml Balance -1614 ml 38 ml 1178 ml 133 ml 242 ml Intake Oral 480 ml 1440 ml 720 ml 480 ml 1680 ml IV Total 406 ml 773 ml 858 ml 653 ml 612 ml Output Urine Total 2500 ml 2175 ml 400 ml 1000 ml 2050 ml # Bowel Movements 0 0 0 0 0 Laboratory Laboratory Tests Test 06/02/17 06:40 Sodium Level 139 Potassium Level 4.0 Chloride Level 107 Carbon Dioxide Level 25.5 Anion Gap 7 Blood Urea Nitrogen 8 Creatinine 0.89 Estimat Glomerular Filtration 92 Rate Random Glucose 102 Calcium Level 8.6 Total Bilirubin 0.4 Aspartate Amino Transf 106 (AST/SGOT) Alanine Aminotransferase 227 (ALT/SGPT) Alkaline Phosphatase 129 Total Protein 6.6 Albumin 3.1 Lipase 199 Imaging Last Impressions Renal Ultrasound 06/01/17 0000 Signed Impressions: Service Date/Time: Thursday, June 01, 2017 15:35 - CONCLUSION: Normal examination. Yogi Guzmán MD Cholangiopancreatography MRI 05/30/17 0000 Signed Impressions: Service Date/Time: Tuesday, May 30, 2017 09:35 - CONCLUSION: Choledocholithiasis with mild distention the common bile duct but no significant intrahepatic biliary dilatation. Status post cholecystectomy. Bryan Tyler MD Abdomen/Pelvis CT 05/25/17 0000 Signed Impressions: Service Date/Time: Thursday, May 25, 2017 22:04 - CONCLUSION: 1. Suspected 4 mm solitary stone within the common bile duct without dilatation. This can be further evaluated with MRCP if clinically warranted. 2. Prior cholecystectomy. Leo Wolfe Jr., MD Physical Exam HEENT: Normocephalic; atraumatic; no jaundice. CHEST: CTA CARDIAC: RRR ABDOMEN: Soft, nondistended, nontender; no hepatosplenomegaly; bowel sounds are present in all four quadrants. EXTREMITIES: No clubbing, cyanosis, or edema. SKIN: Normal; no rash; no jaundice. DRIVABILITY TECHNICIAN: No focal deficits; alert and oriented times three. paraplegic (Yoanna Ruiz MANAGER PHARMACY) Assessment and Plan Plan ASSESSMENT: - Choledocholithiasis with dilated common bile duct. Abdomen/Pelvis CT (05/25/17 )-----> 1. Suspected 4 mm solitary stone within the common bile duct without dilatation. This can be further evaluated with MRCP if clinically warranted. 2. Prior cholecystectomy. MRCP (05/30/17)---> Choledocholithiasis with mild distention the common bile duct but no significant intrahepatic biliary dilatation. Status post cholecystectomy. S/P ERCP with sphincterotomy and stone removal (05/30/17)-----> EGD limited exam normal, common bile duct dilatation with filling defect consistent with stones removed by balloon. NPO. LFTs were normal on 05/29, but increased after procedure to T. Bili 2.3, direct 1.5, indirect 0.8, AST 259, ALT 238, Alk Phosph 119. Lipase was mildly elevated 612, down to 199 today. LFTs improving. Tolerating regular diet, No n/v, no abdominal pain. His pain is in his lower back on right side. - Elevated LFTs. Improving, Most likely related to instrumentation - Severe sepsis secondary to complicated UTI in male with neurogenic bladder. UCx with E. Coli. Cipro x 14 days per ID. - Remote spinal cord injury with paraplegia, hypothyroidism, htn, hyperlipidemia per attending. PLAN: - TRENT - PPI - Cipro per ID recommendations - Supportive care - Further recommendations to follow based on results of above - Pt seen and examined by Dr. Jordan and myself and this note is written on his behalf (Yoanna Ruiz) Yoanna Ruiz Jun 02, 2017 16:42 Sharee Jordan MD Jun 02, 2017 17:38
[2017-06-02 20:00] VITALS: BP 116/69; PULSE 84; RESP 18; TEMP 97.3; O2SAT 95
[2017-06-03] VITALS: BP 125/76; PULSE 92; RESP 20; TEMP 97.5; O2SAT 99
[2017-06-03] MEDS: ALPRAZolam 0.5 MG TAB PO PRN ×2 (00:10→23:40)
[2017-06-03] MEDS: ZOLPIDEM TARTRATE 10 MG TAB PO PRN ×2 (00:10→23:40)
[2017-06-03] MEDS: HYDROmorphone HCL PF 1 MG/ML VIAL IV PUSH PRN ×5 (03:31→22:32)
[2017-06-03] MEDS: LEVOTHYROXINE SODIUM 150 MCG TAB PO SCH (06:28)
[2017-06-03 08:00] VITALS: BP 133/91; PULSE 82; RESP 19; TEMP 97.9; O2SAT 100
[2017-06-03] MEDS: ATORVASTATIN 40 MG TAB PO SCH (08:07)
[2017-06-03] MEDS: DIAZEPAM 5 MG TAB PO PRN ×2 (08:07→17:42)
[2017-06-03] MEDS: METOPROLOL SUCCINATE 50 MG EXTENDED RELEASE TAB PO SCH (08:07)
[2017-06-03] MEDS: ESCITALOPRAM OXALATE 10 MG TAB PO SCH (08:07)
[2017-06-03] MEDS: CIPROFLOXACIN 500 MG TAB PO SCH ×2 (08:07→19:48)
[2017-06-03] MEDS: oxyCODONE HCL 10 MG CONTROLLED RELEASE TAB PO SCH ×2 (08:07→21:33)
[2017-06-03] MEDS: SODIUM CHLORIDE 0.9% FLUSH 10 ML FLUSH IV FLUSH SCH ×2 (08:08→19:50)
[2017-06-03] MEDS: REMOVE OLD PATCH T-DERMAL SCH (08:09)
[2017-06-03] MEDS: NICOTINE 14 MG/24 HR PATCH T-DERMAL SCH (08:09)
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
[2017-06-03 10:47] LABS: INDIRECT BILIRUBIN 0.3 MG/DL (0.0-0.8); TOTAL BILIRUBIN ADULT 0.5 MG/DL (0.2-1.0)
[2017-06-03 12:00] VITALS: BP 137/61; PULSE 88; RESP 16; TEMP 95.7; O2SAT 98
--- NOTE | 2017-06-03 14:56 | RADRPT ---
EXAM DATE/TIME: 06/03/2017 13:49 [place] COMPARISON: Prior CT scan 05/25/17, use for comparison. INDICATIONS : Radiculopathy. Pain. MEDICAL HISTORY : Hypertension. SURGICAL HISTORY : Cholecystectomy. Tonsillectomy. Rosas rods. ENCOUNTER: Initial ACUITY: 4-6 days PAIN SCORE: 4/10 LOCATION: Lower back. TECHNIQUE: Multiplanar multisequence MRI of the lumbar spine was performed without contrast. FINDINGS: Patient previously had thoracolumbar posterior galo placement. There is abnormal signal on the right side of T12 similar to the CT scan. T12-L1: Shows no disc herniation or protrusion. Thecal sac is widely patent. Nerve roots exit without diffi culty. L1-L2: Shows no disc herniation or protrusion. Thecal sac is widely patent. Nerve roots exit without diffi culty. L2-L3: Shows no disc herniation or protrusion. Thecal sac is widely patent. Nerve roots exit without diffi culty. L3-L4: Shows no disc herniation or protrusion. Thecal sac is widely patent. Nerve roots exit without diffi culty. L4-L5: Shows no disc herniation or protrusion. Thecal sac is widely patent. Nerve roots exit without diffi culty. L5-S1: Shows no disc herniation or protrusion. Thecal sac is widely patent. Nerve roots exit without diffi culty. CONCLUSION: Patient has had previuos posterior rodding in the thoracolumbar junction. There is suspected surroun ding susceptibility artifact but otherwise excellent quality exam. No disc herniation or protrusion identified within the lumbar spine. Yogi Guzmán MD on June 03, 2017 at 14:40 Board Certified Radiologist. This report was verified electronically.
[2017-06-03 16:00] VITALS: BP 141/79; PULSE 82; RESP 17; TEMP 96.1; O2SAT 98
--- NOTE | 2017-06-03 16:18 | HHI.GIFU ---
Subjective Remarks Pt in bed, playing games on ipad. No n/v, abd pain, had 2 small BM last night. tolerating reg diet. (Yoanna Ruiz) Objective Vitals I&O Vital Signs Date Time Temp Pulse Resp B/P Pulse Ox O2 Delivery O2 Flow Rate FiO2 06/03/17 16:00 96.1 82 17 141/79 98 06/03/17 12:00 95.7 88 16 137/61 98 06/03/17 08:00 97.9 82 19 133/91 100 06/03/17 00:00 97.5 92 20 125/76 99 06/02/17 20:00 97.3 84 18 116/69 95 I/O 06/02/17 06/02/17 06/02/17 06/03/17 06/03/17 06/03/17 06:59 14:59 22:59 06:59 14:59 22:59 Intake Total 1853 ml 2292 ml 508 ml 2089 ml 440 ml Output Total 1400 ml 2050 ml 3950 ml 2000 ml Balance 453 ml 242 ml 508 ml -1861 ml -1560 ml Intake Oral 1200 ml 1680 ml 1200 ml 440 ml IV Total 653 ml 612 ml 508 ml 889 ml Output Urine Total 1400 ml 2050 ml 3950 ml 2000 ml # Bowel Movements 0 0 2 0 Laboratory Laboratory Tests Test 06/03/17 10:13 Total Bilirubin 0.5 Direct Bilirubin 0.2 Indirect Bilirubin 0.3 Aspartate Amino Transf 85 (AST/SGOT) Alanine Aminotransferase 197 (ALT/SGPT) Alkaline Phosphatase 106 Total Protein 6.2 Albumin 3.1 Imaging Last Impressions Renal Ultrasound 06/01/17 0000 Signed Impressions: Service Date/Time: Thursday, June 01, 2017 15:35 - CONCLUSION: Normal examination. Yogi Guzmán MD Cholangiopancreatography MRI 05/30/17 0000 Signed Impressions: Service Date/Time: Tuesday, May 30, 2017 09:35 - CONCLUSION: Choledocholithiasis with mild distention the common bile duct but no significant intrahepatic biliary dilatation. Status post cholecystectomy. Bryan Tyler MD Abdomen/Pelvis CT 05/25/17 0000 Signed Impressions: Service Date/Time: Thursday, May 25, 2017 22:04 - CONCLUSION: 1. Suspected 4 mm solitary stone within the common bile duct without dilatation. This can be further evaluated with MRCP if clinically warranted. 2. Prior cholecystectomy. Leo Wolfe Jr., MD Physical Exam HEENT: Normocephalic; atraumatic; no jaundice. CHEST: CTA CARDIAC: RRR ABDOMEN: Soft, nondistended, nontender; no hepatosplenomegaly; bowel sounds are present in all four quadrants. EXTREMITIES: No clubbing, cyanosis, or edema. SKIN: Normal; no rash; no jaundice. [employer] LOSS PREVENTION MANAGER: No focal deficits; alert and oriented times three. paraplegic (Yoanna Ruiz) Assessment and Plan Plan ASSESSMENT: - Choledocholithiasis with dilated common bile duct. Abdomen/Pelvis CT (05/25/17 )-----> 1. Suspected 4 mm solitary stone within the common bile duct without dilatation. This can be further evaluated with MRCP if clinically warranted. 2. Prior cholecystectomy. MRCP (05/30/17)---> Choledocholithiasis with mild distention the common bile duct but no significant intrahepatic biliary dilatation. Status post cholecystectomy. S/P ERCP with sphincterotomy and stone removal (05/30/17)-----> EGD limited exam normal, common bile duct dilatation with filling defect consistent with stones removed by balloon. NPO. LFTs were normal on 05/29, but increased after procedure to T. Bili 2.3, direct 1.5, indirect 0.8, AST 259, ALT 238, Alk Phosph 119. Lipase was mildly elevated 612, down to 199 yesterday. LFTs improving. Tolerating regular diet , No n/v, no abdominal pain. His pain is in his lower back on right side. - Elevated LFTs. Improving, Most likely related to instrumentation - Severe sepsis secondary to complicated UTI in male with neurogenic bladder. UCx with E. Coli. Cipro x 14 days per ID. - Remote spinal cord injury with paraplegia, hypothyroidism, htn, hyperlipidemia per attending. PLAN: - TRENT - PPI - Cipro per ID recommendations - Supportive care - f/u with GI as outpatient in 1 week - okay to d/c from GI standpoint - Pt seen and examined by Dr. Jordan and myself and this note is written on his behalf (Yoanna Ruiz) Yaonna Ruiz 20, 2017 16:18 Sharee Jordan MD Jun 03, 2017 19:24
[2017-06-03 20:00] VITALS: BP 126/72; PULSE 90; RESP 20; TEMP 98.2; O2SAT 96
[2017-06-04] VITALS: BP 122/61; PULSE 83; RESP 20; TEMP 97.9; O2SAT 96
[2017-06-04] MEDS: HYDROmorphone HCL PF 1 MG/ML VIAL IV PUSH PRN ×2 (02:40→09:23)
[2017-06-04 04:00] VITALS: BP 192/84; PULSE 88; RESP 22; TEMP 97.1; O2SAT 100
[2017-06-04] MEDS: LEVOTHYROXINE SODIUM 150 MCG TAB PO SCH (04:57)
[2017-06-04] MEDS: DIAZEPAM 5 MG TAB PO PRN (04:57)
[2017-06-04 08:00] VITALS: BP 144/92; PULSE 89; RESP 19; TEMP 95.5; O2SAT 100
[2017-06-04] MEDS: REMOVE OLD PATCH T-DERMAL SCH (09:00)
[2017-06-04] MEDS: ESCITALOPRAM OXALATE 10 MG TAB PO SCH (09:12)
[2017-06-04] MEDS: CIPROFLOXACIN 500 MG TAB PO SCH (09:12)
[2017-06-04] MEDS: oxyCODONE HCL 10 MG CONTROLLED RELEASE TAB PO SCH (09:13)
[2017-06-04] MEDS: METOPROLOL SUCCINATE 50 MG EXTENDED RELEASE TAB PO SCH (09:13)
[2017-06-04] MEDS: ATORVASTATIN 40 MG TAB PO SCH (09:19)
[2017-06-04] MEDS: SODIUM CHLORIDE 0.9% FLUSH 10 ML FLUSH IV FLUSH SCH (09:27)
[2017-06-04] MEDS: NICOTINE 14 MG/24 HR PATCH T-DERMAL SCH (09:27)
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
[2017-06-04 12:00] VITALS: BP 169/79; PULSE 94; RESP 17; TEMP 97.6; O2SAT 98
[2017-06-04] MEDS ORDERED: DILA4TAB2 PO (12:26)
[2017-06-04] MEDS ORDERED: CIPR-9 PO (12:28)
[2017-06-04] MEDS ORDERED: NICO14DI23 T-DERMAL (12:28)
[2017-06-04] MEDS ORDERED: METO50TA11 PO (12:28)
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
== END 2017-06-04 13:56 | disposition home or self-care (01) | DRG 871 ==
LOC: PHED 20:18 → PHEDA 23:17 → PH3A 05-26 01:14 → HPAC 05-30 12:35 → NEPGCP 05-30 12:44 → N07B 05-30 17:07 → N07A 05-30 18:15
PROVIDERS: ADMIT Internal Medicine; ATTEND Internal Medicine
PROC: BF101ZZ Fluoroscopy of Bile Ducts using Low Osmolar Contrast (ICD-10-PCS; 2017-05-30)
PROC: 0FC98ZZ Extirpation of Matter from Common Bile Duct, Via Natural or Artificial Opening Endoscopic (ICD-10-PCS; principal; 2017-05-30 14:55)
DX: A41.51 Sepsis due to Escherichia coli [E. coli] (principal); K85.90 Acute pancreatitis without necrosis or infection, unspecified; N17.9 Acute kidney failure, unspecified; E87.2 Acidosis; G82.20 Paraplegia, unspecified; K91.86 Retained cholelithiasis following cholecystectomy; N39.0 Urinary tract infection, site not specified; E83.52 Hypercalcemia; E03.9 Hypothyroidism, unspecified; G47.30 Sleep apnea, unspecified; E78.5 Hyperlipidemia, unspecified; N31.9 Neuromuscular dysfunction of bladder, unspecified; Y83.6 Removal of other organ (partial) (total) as the cause of abnormal reaction of the patient, or of later complication, without mention of misadventure at the time of the procedure; B96.20 Unspecified Escherichia coli [E. coli] as the cause of diseases classified elsewhere; R65.20 Severe sepsis without septic shock; G89.29 Other chronic pain; I12.9 Hypertensive chronic kidney disease with stage 1 through stage 4 chronic kidney disease, or unspecified chronic kidney disease; N18.2 Chronic kidney disease, stage 2 (mild); K75.9 Inflammatory liver disease, unspecified; Z87.440 Personal history of urinary (tract) infections; Z87.442 Personal history of urinary calculi
CPT/HCPCS: 51702; 72148; 74176; 74181; 74330; 76000; 76377; 76775; 80048; 80053; 80076; 81001; 83605; 83690; 84443; 85025; 85027; 87040; 87077; 87086; 87186; 96361; 96365; 96374; 96375; C1769; J0744; J1170; J1610; J2060; J2405; J2543; J3010; J7030; Q9967

== ENCOUNTER 2017-06-23 09:59 | Emergency (ER) | payer MEDICARE ==
[~2017-06-23 09:59] MED LIST changes: +AMPI250C9 PO; +CIPR-9 PO; +DILA4TAB2 PO; -LORA-373 PO; +NICO14DI23 T-DERMAL; +PROM25TA10 PO; -PROM25TA5 PO
[2017-06-23 10:06] VITALS: BP 122/66; PULSE 118; RESP 16; TEMP 98.2; O2SAT 96
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
--- NOTE | 2017-06-23 12:09 | RADRPT ---
EXAM DATE/TIME: 06/23/2017 11:22 [facility] COMPARISON: No previous studies available for comparison. INDICATIONS : Left foot pain after falling the shower. MEDICAL HISTORY : Spinal injury causing lower extremity paralysis SURGICAL HISTORY : Fusion, thoracic. ENCOUNTER: Initial ACUITY: 1 day PAIN SCORE: 0/10 LOCATION: Left entire foot FINDINGS: Two view examination of the left foot demonstrates no soft tissue swelling, dislocation, or fracture. Deformity of the calcaneus is identified. The calcaneus is intact. Bony mineralization is normal. CONCLUSION: 1. No acute fracture, subluxation or significant soft tissue swelling. 2. Deformity of the right calcaneus most characteristic of a posttraumatic old fracture which has healed. Bryan Tyler MD on June 23, 2017 at 12:06 Board Certified Radiologist. This report was verified electronically.
[2017-06-23] MEDS ORDERED: CEPH-460 PO (12:35)
== END 2017-06-23 12:53 | disposition home or self-care (01) ==
LOC: PHED 09:59
DX: S91.115A Laceration without foreign body of left lesser toe(s) without damage to nail, initial encounter (principal); I10 Essential (primary) hypertension; E03.9 Hypothyroidism, unspecified; E78.00 Pure hypercholesterolemia, unspecified; G82.20 Paraplegia, unspecified; X58.XXXA Exposure to other specified factors, initial encounter; Y92.009 Unspecified place in unspecified non-institutional (private) residence as the place of occurrence of the external cause; Z72.0 Tobacco use; Z87.39 Personal history of other diseases of the musculoskeletal system and connective tissue; Z86.59 Personal history of other mental and behavioral disorders; Z86.79 Personal history of other diseases of the circulatory system; Z87.19 Personal history of other diseases of the digestive system; Z87.448 Personal history of other diseases of urinary system; Z86.69 Personal history of other diseases of the nervous system and sense organs
CPT/HCPCS: 12001; 73620

== ENCOUNTER 2017-07-10 23:17 | Emergency (ER) | payer MEDICARE ==
[~2017-07-10] VITALS: Ht 203.2 cm; Wt 125.5 kg
[~2017-07-10 23:17] MED LIST changes: -AMPI250C9 PO; +CEPH-460 PO; -CIPR-9 PO; -NICO14DI23 T-DERMAL; -PROM25TA10 PO
[2017-07-10 23:35] VITALS: BP 148/85; PULSE 111; RESP 12; TEMP 98.3; O2SAT 95
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
[2017-07-11] MEDS ORDERED: DOXY100C PO (00:09)
[2017-07-11] MEDS ORDERED: BACT800T5 PO (00:09)
[2017-07-11] MEDS ORDERED: DOXYCYCLINE HYCLATE 100 MG CAP PO ONE (00:15)
[2017-07-11] MEDS ORDERED: SULFAMETHOXAZOLE-TRIMETHOPRIM DS 800-160 MG TAB PO ONE (00:15)
[2017-07-11 01:53] VITALS: BP 128/96; PULSE 107; RESP 18; TEMP 98.5; O2SAT 98
--- NOTE | 2017-07-11 02:01 | RADRPT ---
EXAM DATE/TIME: 07/11/2017 01:35 [facility] COMPARISON: No previous studies available for comparison. INDICATIONS : Laceration to phalanges of the left foot. MEDICAL HISTORY : T12-L1 Incomplete. SURGICAL HISTORY : None. ENCOUNTER: Initial ACUITY: 1 week PAIN SCORE: 0/10 LOCATION: Left phalanges of the left foot FINDINGS: Examination of the third digit of the left foot demonstrates no evidence of fracture or dislocation. No radiopaque foreign bodies are seen. The soft tissues are intact. CONCLUSION: Unremarkable examination of the left third toe. Yogi Guzmán MD on July 11, 2017 at 1:59 Board Certified Radiologist. This report was verified electronically.
== END 2017-07-11 02:14 | disposition home or self-care (01) ==
LOC: PHED 23:17
DX: L08.9 Local infection of the skin and subcutaneous tissue, unspecified (principal); S91.312D Laceration without foreign body, left foot, subsequent encounter; X58.XXXD Exposure to other specified factors, subsequent encounter
CPT/HCPCS: 73660; 99284

== ENCOUNTER → 2017-07-21 | Outpatient (CLI) | payer MEDICARE ==
[~2017-07-21] MED LIST changes: +BACT800T5 PO; -DIAZ5 PO; -DILA4TAB2 PO; +DOXY100C PO; -ESCI10TA PO; +IBUP800T23 PO
--- NOTE | 2017-07-21 17:17 | RADRPT ---
EXAM DATE/TIME: 07/21/2017 11:06 [facility] COMPARISON: No previous studies available for comparison. INDICATIONS : Left hip pain. MEDICAL HISTORY : None. SURGICAL HISTORY : Dominic rods. ENCOUNTER: Initial ACUITY: 1 year PAIN SCORE: 3/10 LOCATION: Left hip. TECHNIQUE: Multiplanar, multisequence MRI examination was performed without contrast. There is some motion degr adation of images. FINDINGS: There is normal signal in the femoral head and neck. Normal signal in the marrow of the acetabulum. No evidence of joint effusion. No signal abnormalities in the surrounding soft tissues. CONCLUSION: Negative noncontrast MRI of the left hip. Leo Keating MD on July 21, 2017 at 17:13 Board Certified Radiologist. This report was verified electronically.
== END ==
LOC: HRAD 09:45
PROVIDERS: ATTEND Family Medicine
DX: M79.606 Pain in leg, unspecified (principal)
CPT/HCPCS: 73721

== ENCOUNTER → 2017-07-21 | Outpatient (CLI) | payer OTHER ==
--- NOTE | 2017-07-22 11:07 | RADRPT ---
EXAM DATE/TIME: 07/21/2017 10:41 [facility] COMPARISON: No previous studies available for comparison. INDICATIONS : Left wrist pain. Ligament damage. MEDICAL HISTORY : None. SURGICAL HISTORY : Dominic rods. ENCOUNTER: Initial ACUITY: 1 year PAIN SCORE: 2/10 LOCATION: Left wrist. TECHNIQUE: Multiplanar multisequence MRI examination of the wrist was performed without contrast. FINDINGS: INTRISIC LIGAMENTS: The scapholunate and lunotriquetral ligaments are intact. TRIANGULAR FIBROCARTILAGE: The triangular fibrocartilage complex is intact. TENDONS: All of the visualized tendons are intact. MARROW/CARTILAGE: Bone marrow signal is homogeneous. Articular cartilage is within normal limits. OTHER: No evidence of joint effusion. Ulnar nerve and median nerve are intact. CONCLUSION: Normal examination. Minimal fluid in the triquetral pisiform joint space. Yogi Guzmán MD on July 22, 2017 at 10:59 Board Certified Radiologist. This report was verified electronically.
== END ==
LOC: HRAD 09:46
PROVIDERS: ATTEND Orthopaedic Surgery
DX: M24.232 Disorder of ligament, left wrist (principal)
CPT/HCPCS: 73221

== ENCOUNTER 2017-08-16 12:44 | Emergency (ER) | payer OTHER, MEDICARE ==
[~2017-08-16] VITALS: Ht 203.2 cm; Wt 125.0 kg
[~2017-08-16 12:44] MED LIST changes: -IBUP800T23 PO
[2017-08-16 12:51] VITALS: BP_SYST 122; BP_SYST 141; BP_DIAS 55; BP_DIAS 89; PULSE 100; RESP 16; TEMP 98.7; O2SAT 98
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
[2017-08-16] MEDS ORDERED: IBUP800T23 PO (14:03)
== END 2017-08-16 14:10 | disposition home or self-care (01) ==
LOC: PHEFT 12:44
DX: S16.1XXA Strain of muscle, fascia and tendon at neck level, initial encounter (principal); M54.5 Low back pain; V87.7XXA Person injured in collision between other specified motor vehicles (traffic), initial encounter; Y92.410 Unspecified street and highway as the place of occurrence of the external cause; E03.9 Hypothyroidism, unspecified; E78.00 Pure hypercholesterolemia, unspecified; I10 Essential (primary) hypertension; Z87.442 Personal history of urinary calculi; G82.20 Paraplegia, unspecified
CPT/HCPCS: 72100; 99283

== ENCOUNTER 2017-12-07 20:37 | Emergency (ER) | payer MEDICARE ==
[~2017-12-07 20:37] MED LIST changes: -BACT800T5 PO; -CEPH-460 PO; -DOXY100C PO; -HYDR-2374 PO; +IBUP1TAB7 PO; +IOHEXOL 350 MG/ML 10 ML VIAL (for RAD DIAG) IVCONTRAST ONE; +METO1TAB9 PO; -METO50TA11 PO
[2017-12-07 20:53] VITALS: BP 150/65; PULSE 115; RESP 20; TEMP 98.8; O2SAT 96
[2017-12-07] MEDS ORDERED: KETOROLAC TROMETHAMINE 30 MG/ML (IVP) VIAL IV PUSH ONE (22:30)
[2017-12-07] MEDS ORDERED: HYDR-3583 PO (22:34)
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
[2017-12-07 23:20] LABS: AUTOMATED NEUTROPHIL # 4.3 TH/MM3 (1.8-7.7); BASOPHIL % 0.6 % (0.0-2.0); EOSINOPHIL # 0.1 TH/MM3 (0-0.4); EOSINOPHIL % 1.8 % (0.0-4.0); HEMATOCRIT 51.1 % (39.0-51.0); HEMOGLOBIN 17.2 GM/DL (13.0-17.0); LYMPH % 17.6 % (9.0-44.0); LYMPHOCYTE # 1.1 TH/MM3 (1.0-4.8); MEAN CELL VOLUME 101.5 FL (80.0-100.0); MEAN CORPUSCULAR HEMOGLOBIN 34.2 PG (27.0-34.0); MEAN CORPUSCULAR HGB CONC 33.7 % (32.0-36.0); MEAN PLATELET VOLUME 7.4 FL (7.0-11.0); MONO % 10.9 % (0.0-8.0); MONOCYTE # 0.7 TH/MM3 (0-0.9); NEUT % 69.1 % (16.0-70.0); PLATELET COUNT 214 TH/MM3 (150-450); RED BLOOD COUNT 5.04 MIL/MM3 (4.50-5.90); RED CELL DISTRIBUTION WIDTH 15.1 % (11.6-17.2); WHITE BLOOD COUNT 6.2 TH/MM3 (4.0-11.0)
[2017-12-07 23:30] LABS: CHLORIDE 103 MEQ/L (98-107); SODIUM (NA) 138 MEQ/L (136-145)
[2017-12-07 23:33] LABS: ALBUMIN 3.8 GM/DL (3.4-5.0); BICARBONATE 26.9 MEQ/L (21.0-32.0); CALCIUM 9.3 MG/DL (8.5-10.1); GLUCOSE,RANDOM 120 MG/DL (74-106); LIPASE 187 U/L (73-393)
[2017-12-07 23:34] LABS: BLOOD UREA NITROGEN 18 MG/DL (7-18)
[2017-12-07 23:36] LABS: ALT (GPT) 46 U/L (12-78); AST (GOT) 39 U/L (15-37); GLOMERULAR FILTRATION RATE 65 ML/MIN (>89)
[2017-12-07 23:38] LABS: TOTAL PROTEIN 7.6 GM/DL (6.4-8.2)
[2017-12-07 23:39] LABS: ALKALINE PHOSPHATASE 95 U/L (45-117)
[2017-12-07] MEDS ORDERED: SODIUM CHLOR 0.9% 1000 ML INJ 1,000 ML IV ONE (23:45)
[2017-12-08] MEDS ORDERED: MORPHINE SULFATE 8 MG/ML INJ IV PUSH ONE
[2017-12-08] MEDS ORDERED: ONDANSETRON HCL 4 MG/2 ML VIAL IV PUSH ONE
[2017-12-08 00:45] VITALS: BP 148/93; PULSE 96; RESP 18; O2SAT 97
--- NOTE | 2017-12-08 01:12 | RADRPT ---
EXAM DATE/TIME: 12/08/2017 00:00 [place] COMPARISON: CT ABDOMEN & PELVIS W CONTRAST, July 16, 2015, 3:20. INDICATIONS : Left flank pain for three days. IV CONTRAST: 100 cc Omnipaque 350 (iohexol) IV ORAL CONTRAST: No oral contrast ingested. RADIATION DOSE: 21.93 CTDIvol (mGy) MEDICAL HISTORY : Colitis. SURGICAL HISTORY : Umbilical hernia repair. Appendectomy.Cholecystectomy. ENCOUNTER: Initial ACUITY: 3 days PAIN SCALE: 8/10 LOCATION: Left flank TECHNIQUE: Volumetric scanning of the abdomen and pelvis was performed. Using automated exposure control and ad justment of the mA and/or kV according to patient size, radiation dose was kept as low as reasonably achievable to obtain optimal diagnostic quality images. DICOM format image data is available electro nically for review and comparison. FINDINGS: LOWER LUNGS: The visualized lower lungs are clear. LIVER: Homogeneous density without lesion; mild diffuse fatty change.. There is no dilation of the biliary tree. Cholecystectomy.. SPLEEN: Normal size without lesion. PANCREAS: Within normal limits. KIDNEYS: Normal in size and shape. There is no mass, stone or hydronephrosis. ADRENAL GLANDS: Within normal limits. VASCULAR: There is no aortic aneurysm. BOWEL/MESENTERY: No dilated loops of small or large bowel. No evidence of free fluid. ABDOMINAL WALL: No focal defects seen. There is atrophy of the right rectus muscles. RETROPERITONEUM: There is no lymphadenopathy. BLADDER: No wall thickening or mass. REPRODUCTIVE: Within normal limits. INGUINAL: There is no lymphadenopathy or hernia. MUSCULOSKELETAL: Multilevel posterior spinal instrumentation in the thoracic and lumbar spine with bilateral rods. CONCLUSION: 1. No acute findings. No evidence for hydronephrosis or renal stone. 2. Mild diffuse fatty change of liver. Leo Keating MD on December 08, 2017 at 0:49 Board Certified Radiologist. This report was verified electronically.
[2017-12-08 02:00] VITALS: BP 143/104; PULSE 93; RESP 18; O2SAT 97
[2017-12-08 02:05] LABS: BLOOD, URINE NEG (NEG); GLUCOSE,URINE NEG (NEG); KETONE, URINE TRACE mg/dL (NEG); NITRITE,URINE NEG (NEG); PH, URINE 5.5 (5.0-8.5); URINE LEUKOCYTE ESTERASE NEG (NEG)
[2017-12-08 02:12] LABS: BILIRUBIN, URINE NEG (NEG)
[2017-12-08 02:13] LABS: URINE COLOR AMBER (YELLW/STRAW)
[2017-12-08 02:14] LABS: MUCUS URINE MOD /lpf (OCC); SQUAMOUS EPITHELIAL CELL URINE 0-5 /hpf (0-5)
--- NOTE | 2017-12-08 02:20 | PD ---
Physical Exam Date Seen by Provider: Dec 08, 2017 Narrative Patient was checked out to me at midnight pending CT and urinalysis. The patient presented with left lower quadrant abdominal pain for 3 days. The pain is sharp and exacerbated by movement. Data Data Last Documented VS Vital Signs Date Time Temp Pulse Resp B/P (MAP) Pulse Ox O2 Delivery O2 Flow Rate FiO2 12/08/17 00:29 18 12/07/17 20:53 98.8 115 150/65 (93) 96 Orders Orders Complete Blood Count With Diff (12/07/17 22:29) Comprehensive Metabolic Panel (12/07/17 22:29) Lipase (12/07/17 22:29) Urinalysis - C+S If Indicated (12/07/17 22:29) Ct Abd/Pel W Iv Contrast(Rout) (12/07/17 22:29) Ketorolac Inj (Toradol Inj) (12/07/17 22:30) Sodium Chlor 0.9% 1000 Ml Inj (Ns 1000 M (12/07/17 23:45) Morphine Inj (Morphine Inj) (12/08/17 00:00) Ondansetron Inj (Zofran Inj) (12/08/17 00:00) Iohexol 350 Inj (Omnipaque 350 Inj) (12/07/17 00:00) Labs Laboratory Tests Test 12/07/17 23:00 12/08/17 01:55 White Blood Count 6.2 TH/MM3 Red Blood Count 5.04 MIL/MM3 Hemoglobin 17.2 GM/DL Hematocrit 51.1 % Mean Corpuscular Volume 101.5 FL Mean Corpuscular Hemoglobin 34.2 PG Mean Corpuscular Hemoglobin Concent 33.7 % Red Cell Distribution Width 15.1 % Platelet Count 214 TH/MM3 Mean Platelet Volume 7.4 FL Neutrophils (%) (Auto) 69.1 % Lymphocytes (%) (Auto) 17.6 % Monocytes (%) (Auto) 10.9 % Eosinophils (%) (Auto) 1.8 % Basophils (%) (Auto) 0.6 % Neutrophils # (Auto) 4.3 TH/MM3 Lymphocytes # (Auto) 1.1 TH/MM3 Monocytes # (Auto) 0.7 TH/MM3 Eosinophils # (Auto) 0.1 TH/MM3 Basophils # (Auto) 0.0 TH/MM3 CBC Comment DIFF FINAL Differential Comment Blood Urea Nitrogen 18 MG/DL Creatinine 1.20 MG/DL Random Glucose 120 MG/DL Total Protein 7.6 GM/DL Albumin 3.8 GM/DL Calcium Level 9.3 MG/DL Alkaline Phosphatase 95 U/L Aspartate Amino Transf (AST/SGOT) 39 U/L Alanine Aminotransferase (ALT/SGPT) 46 U/L Total Bilirubin 1.0 MG/DL Sodium Level 138 MEQ/L Potassium Level 3.6 MEQ/L Chloride Level 103 MEQ/L Carbon Dioxide Level 26.9 MEQ/L Anion Gap 8 MEQ/L Estimat Glomerular Filtration Rate 65 ML/MIN Lipase 187 U/L Urine Color MICKI Urine Turbidity SLIGHT Urine pH 5.5 Urine Specific [place] GREATER THAN 1.035 Urine Protein 30 mg/dL Urine Glucose (UA) NEG mg/dL Urine Ketones TRACE mg/dL Urine Occult Blood NEG Urine Nitrite NEG Urine Bilirubin NEG Urine Leukocyte Esterase NEG Urine WBC 9-14 /hpf Urine Squamous Epithelial Cells 0-5 /hpf Urine Hyaline Casts 3-5 /lpf Urine Mucus MOD /lpf Microscopic Urinalysis Comment CULT NOT INDICATED MDM Supervised Visit with BUTCH: No Narrative Course CBC & BMP Diagram 12/07/17 23:00 Total Protein 7.6, Albumin 3.8, Calcium Level 9.3, Alkaline Phosphatase 95, Aspartate Amino Transf (AST/SGOT) 39 H, Alanine Aminotransferase (ALT/SGPT) 46, Total Bilirubin 1.0 UA is negative Last Impressions Abdomen/Pelvis CT 12/07/172228 Signed Impressions: Service Date/Time: Friday, December 08, 2017 00:00 - CONCLUSION: 1. No acute findings. No evidence for hydronephrosis or renal stone. 2. Mild diffuse fatty change of liver. Leo Keating MD The history, exam, diagnostic testing, and current condition do not suggest any significant pathology to warrant further testing, continued ED treatment, admission, or surgical evaluation at this point. No EMC was found. The patient 's condition is stable and appropriate for discharge. Diagnosis Primary Impression: Abdominal pain Qualified Codes: R10.32 - Left lower quadrant pain Patient Instructions: Abdominal Pain (ED), General Instructions, Narcotic given in the ED Disposition: 01 DISCHARGE HOME Condition: Stable Olivia Pfeiffer MD Dec 08, 2017 02:20
== END 2017-12-08 02:50 | disposition home or self-care (01) ==
LOC: PHED 20:37
DX: R10.32 Left lower quadrant pain (principal); K76.0 Fatty (change of) liver, not elsewhere classified; E03.9 Hypothyroidism, unspecified; E78.00 Pure hypercholesterolemia, unspecified; I10 Essential (primary) hypertension; F17.210 Nicotine dependence, cigarettes, uncomplicated
CPT/HCPCS: 74177; 80053; 81001; 83690; 85025; 96361; 96374; 96375; 99285; J1885; J2270; J2405; J7030; Q9967

== ENCOUNTER 2018-04-29 13:27 | Inpatient (IN) | payer MEDICARE ==
[~2018-04-29] VITALS: Ht 203.2 cm; Wt 122.7 kg
[~2018-04-29 13:27] MED LIST changes: +HYDR-3583 PO; -IOHEXOL 350 MG/ML 10 ML VIAL (for RAD DIAG) IVCONTRAST ONE
[2018-04-29 13:32] VITALS: BP 136/80; PULSE 127; RESP 20; TEMP 98.5; O2SAT 97
[2018-04-29] MEDS ORDERED: METO1TAB9 PO (13:48)
[2018-04-29] MEDS ORDERED: HYDR2TAB PO (13:48)
[2018-04-29] MEDS ORDERED: MORPHINE SULFATE 4 MG/ML INJ IV ONE (14:00)
[2018-04-29] MEDS ORDERED: PROCHLORPERAZINE INJ 10 MG/2 ML VIAL IV PUSH ONE (14:00)
[2018-04-29] MEDS ORDERED: diphenhydrAMINE HCL 50 MG/ML VIAL IV PUSH ONE (14:00)
[2018-04-29] MEDS ORDERED: SODIUM CHLOR 0.9% 1000 ML INJ 1,000 ML IV ONE ×2 (14:00)
--- NOTE | 2018-04-29 14:01 | PD ---
HPI . Abdominal pain Chief Complaint: Abdominal Pain Time Seen by Provider: 13:42 Travel History International Travel<30 days: No Contact w/Intl Traveler<30days: No Traveled to known affect area: No History of Present Illness HPI This is a paraplegic patient secondary to previous injury who presents to us today complaining with abdominal pain associated with nausea, vomiting, diarrhea and sore throat. Onset of symptoms was 3 days ago. He has a neurogenic bladder and self caths. He states that his urine has been darker than usual. He also reports decreased p.o. intake because of sore throat and nausea. He reports several previous episodes of sepsis secondary to urinary tract infection. His symptoms have been constant for the last 3 days and getting progressively worse. He now complains of abdominal pain which he rates 8/10. There have been no exacerbating or relieving factors. PFSH Past Medical History Arthritis: Yes Asthma: No Autoimmune Disease: No Blood Disorders: No Anxiety: Yes Depression: No Heart Rhythm Problems: No Cancer: No Cardiac Catheterization: No Cardiovascular Problems: Yes (HIGH BP) High Cholesterol: Yes Chest Pain: No Congestive Heart Failure: No COPD: No Cerebrovascular Accident: No Diabetes: No Diminished Hearing: No Endocrine: Yes (HYPOTHYROIDISM) Gastrointestinal Disorders: Yes GERD: No Glaucoma: No Genitourinary: Yes (SELF CATH, SECONDARY TO SPINAL INJURY) Headaches: No Hepatitis: No Hiatal Hernia: No Hypertension: Yes Immune Disorder: No Implanted Vascular Access Dvce: Yes Kidney Stones: Yes Musculoskeletal: Yes Neurologic: Yes (L1-T2 SPINAL CORD INJURY) Psychiatric: No Reproductive: No Respiratory: No Immunizations Current: Yes Migraines: No Myocardial Infarction: No Renal Failure: No Seizures: Yes Sleep Apnea: Yes Thyroid Disease: Yes (HYPOTHYROID) Ulcer: No PNEUMOCCOCAL Vaccine (Year): 2 Past Surgical History Abdominal Surgery: Yes (UMBILICAL HERNIA) Appendectomy: Yes (AGE 15) Body Medical Devices: RODS IN BACK Cardiac Surgery: No Cholecystectomy: Yes Coronary Artery Bypass Graft: No Ear Surgery: No Endocrine Surgery: No Eye Surgery: No Genitourinary Surgery: No Gynecologic Surgery: No Neurologic Surgery: Yes (SPINAL FUSION L1 - T12) Oral Surgery: No Pacemaker: No Thoracic Surgery: No Tonsillectomy: Yes Other Surgery: Yes (PORTION OF HIP AND RIBS REMOVED FOR SPINAL FUSIONS 1990) Social History Alcohol Use: Yes (Occ.) Tobacco Use: Yes Substance Use: No Allergies-Medications (Allergen,Severity, Reaction): Coded Allergies: vancomycin (Verified Adverse Reaction, Intermediate, AFFECTS BLOOD CELLS, 04/29/18) *MDRO Multi-Drug Resistant Organism (Verified Adverse Reaction, Unknown, ESBL, 04/29/18) ESBL (urine & blood) - 01/13/17 ESBL (urine) 05/25/17 Reported Meds & Prescriptions Reported Meds & Active Scripts Active Reported Hydromorphone (Hydromorphone HCl) 2 Mg Tab Unknown Dose PO Q4H PRN Metoprolol Succinate ER 24 HR (Metoprolol Succinate) 50 Mg Tab 50 Mg PO DAILY Xanax (Alprazolam) 0.5 Mg Tab 1 Mg PO HS Atorvastatin (Atorvastatin Calcium) 40 Mg Tab 40 Mg PO DAILY Zolpidem (Zolpidem Tartrate) 10 Mg Tab 10 Mg PO HS PRN Toviaz ER (Fesoterodine Fumarate) 8 Mg Cassandra 8 Mg PO DAILY Losartan (Losartan Potassium) 100 Mg Tab 100 Mg PO DAILY Levothyroxine (Levothyroxine Sodium) 300 Mcg Tab 300 Mcg PO DAILY Amlodipine (Amlodipine Besylate) 5 Mg Tab 5 Mg PO DAILY Review of Systems Except as stated in HPI: all other systems reviewed are Neg General / Constitutional: Positive: Fever, Chills HENT: Positive: Sore Throat Gastrointestinal: Positive: Nausea, Vomiting, Diarrhea, Abdominal Pain Genitourinary: Positive: Decreased Urinary Output Physical Exam Narrative GENERAL: Writhing and moaning. SKIN: warm/dry. HEAD: Normocephalic. Atraumatic. EYES: Pupils equal and round. Extraocular movements are intact. ENT: Mucous membranes pink and moist. NECK: Supple. Full range of motion without pain.. CARDIOVASCULAR: Regular rate and rhythm. Sinus tachycardia at about 130. RESPIRATORY: No accessory muscle use. Clear to auscultation. Breath sounds equal bilaterally. GASTROINTESTINAL: Abdomen soft. Nontender. Bowel sounds present. Nondistended. He reports normal sensation in his abdomen. MUSCULOSKELETAL: No obvious deformities. He is moving his legs. He does have some muscle atrophy in the lower extremities. NEUROLOGICAL: Awake and alert. No obvious cranial nerve deficits. Motor grossly within normal limits. Normal speech. PSYCHIATRIC: Appropriate mood and affect; insight and judgment normal. Data Data Last Documented VS Vital Signs Date Time Temp Pulse Resp B/P (MAP) Pulse Ox O2 Delivery O2 Flow Rate FiO2 04/29/18 13:32 98.5 127 20 136/80 (98) 97 Orders Orders Sepsis Workup Initiated (04/29/18 ) Complete Blood Count With Diff (04/29/18 13:52) Comprehensive Metabolic Panel (04/29/18 13:52) Lactic Acid Sepsis Protocol (04/29/18 13:52) Urinalysis - C+S If Indicated (04/29/18 13:52) Blood Culture (04/29/18 13:52) Chest, Single Ap (04/29/18 13:52) Iv Access Insert/Monitor (04/29/18 13:52) Cath For Specimen (04/29/18 13:52) Group A Rapid Strep Screen (04/29/18 13:52) Influenzae A/B Antigen (04/29/18 13:52) Prochlorperazine Inj (Compazine Inj) (04/29/18 14:00) Diphenhydramine Inj (Benadryl Inj) (04/29/18 14:00) Morphine Inj (Morphine Inj) (04/29/18 14:00) Sodium Chlor 0.9% 1000 Ml Inj (Ns 1000 M (04/29/18 14:00) Sodium Chlor 0.9% 1000 Ml Inj (Ns 1000 M (04/29/18 14:00) Strep Culture (Group A) (04/29/18 14:10) Ct Abd/Pel W/O Iv Contrast (04/29/18 14:40) Labs Laboratory Tests Test 04/29/18 14:05 White Blood Count 11.8 TH/MM3 Red Blood Count 5.94 MIL/MM3 Hemoglobin 18.8 GM/DL Hematocrit 56.4 % Mean Corpuscular Volume 94.9 FL Mean Corpuscular Hemoglobin 31.6 PG Mean Corpuscular Hemoglobin Concent 33.3 % Red Cell Distribution Width 15.7 % Platelet Count 236 TH/MM3 Mean Platelet Volume 8.0 FL Neutrophils (%) (Auto) 70.5 % Lymphocytes (%) (Auto) 12.6 % Monocytes (%) (Auto) 15.2 % Eosinophils (%) (Auto) 0.9 % Basophils (%) (Auto) 0.8 % Neutrophils # (Auto) 8.3 TH/MM3 Lymphocytes # (Auto) 1.5 TH/MM3 Monocytes # (Auto) 1.8 TH/MM3 Eosinophils # (Auto) 0.1 TH/MM3 Basophils # (Auto) 0.1 TH/MM3 CBC Comment DIFF FINAL Differential Comment Blood Urea Nitrogen 38 MG/DL Creatinine 3.10 MG/DL Random Glucose 90 MG/DL Total Protein 7.7 GM/DL Albumin 4.0 GM/DL Calcium Level 9.2 MG/DL Alkaline Phosphatase 96 U/L Aspartate Amino Transf (AST/SGOT) 48 U/L Alanine Aminotransferase (ALT/SGPT) 79 U/L Total Bilirubin 3.5 MG/DL Sodium Level 135 MEQ/L Potassium Level 4.3 MEQ/L Chloride Level 97 MEQ/L Carbon Dioxide Level 25.2 MEQ/L Anion Gap 13 MEQ/L Estimat Glomerular Filtration Rate 22 ML/MIN Lactic Acid Level 1.8 mmol/L MDM Medical Decision Making Medical Screen Exam Complete: Yes Emergency Medical Condition: Yes Medical Record Reviewed: Yes (In addition to paraplegia, he has a history of hypertension and hypothyroidism.) Differential Diagnosis Differential diagnosis of abdominal pain includes but is not limited to gastritis, pancreatitis, hepatitis, gastroenteritis, constipation, urinary retention, peptic ulcer disease, diverticulitis or appendicitis Narrative Course This patient presents with abdominal pain associated with vomiting, diarrhea and sore throat. He has had poor oral intake and decreased urinary output. He has a history of previous sepsis secondary to UTI. Septic workup is in process. In the meantime, he will be treated with IV fluids , IV morphine, IV Compazine and IV Benadryl. CBC & BMP Diagram 04/29/18 14:05 Total Protein 7.7, Albumin 4.0, Calcium Level 9.2, Alkaline Phosphatase 96, Aspartate Amino Transf (AST/SGOT) 48 H, Alanine Aminotransferase (ALT/SGPT) 79 H , Total Bilirubin 3.5 H He has acute renal failure. His most recent creatinine from November was 1.2. Lactic acid is 1.8 His care is being turned over to the oncoming physician at 3 PM pending his urinalysis and CT. Regardless, he will need to be admitted to the hospital to address his acute renal failure. Diagnosis Primary Impression: Abdominal pain Qualified Codes: R10.84 - Generalized abdominal pain Additional Impression: Acute renal failure Qualified Codes: N17.9 - Acute kidney failure, unspecified Disposition: DISCHARGE HOME Condition: Stable Olivia Pfeiffer MD Apr 29, 2018 14:01
--- NOTE | 2018-04-29 14:15 | RADRPT ---
EXAM DATE: 04/29/2018 2:05 PM EDT AGE/SEX: 47 years / Male INDICATIONS: Cough. CLINICAL DATA: This is the patient's initial encounter. Patient reports that signs and symptoms have been present for 3 days and indicates a pain score of 7/10. MEDICAL/SURGICAL HISTORY: None. None. COMPARISON: [facility], CHEST SINGLE AP, 01/13/2017. . FINDINGS: A single AP view of the chest demonstrates the lungs to be symmetrically aerated without evidence of mass, infiltrate or effusion. The cardiomediastinal contours are unremarkable. Osseous structures a re intact. CONCLUSION: Negative examination. Electronically signed by: Jayce Deleon MD 04/29/2018 2:14 PM EDT
[2018-04-29 14:22] LABS: AUTOMATED NEUTROPHIL # 8.3 TH/MM3 (1.8-7.7); BASOPHIL # 0.1 TH/MM3 (0-0.2); BASOPHIL % 0.8 % (0.0-2.0); EOSINOPHIL # 0.1 TH/MM3 (0-0.4); EOSINOPHIL % 0.9 % (0.0-4.0); HEMATOCRIT 56.4 % (39.0-51.0); HEMOGLOBIN 18.8 GM/DL (13.0-17.0); LYMPH % 12.6 % (9.0-44.0); LYMPHOCYTE # 1.5 TH/MM3 (1.0-4.8); MEAN CELL VOLUME 94.9 FL (80.0-100.0); MEAN CORPUSCULAR HEMOGLOBIN 31.6 PG (27.0-34.0); MEAN CORPUSCULAR HGB CONC 33.3 % (32.0-36.0); MONO % 15.2 % (0.0-8.0); MONOCYTE # 1.8 TH/MM3 (0-0.9); NEUT % 70.5 % (16.0-70.0); PLATELET COUNT 236 TH/MM3 (150-450); RED BLOOD COUNT 5.94 MIL/MM3 (4.50-5.90); RED CELL DISTRIBUTION WIDTH 15.7 % (11.6-17.2); WHITE BLOOD COUNT 11.8 TH/MM3 (4.0-11.0)
[2018-04-29 14:27] LABS: CHLORIDE 97 MEQ/L (98-107); SODIUM (NA) 135 MEQ/L (136-145)
[2018-04-29 14:30] LABS: CALCIUM 9.2 MG/DL (8.5-10.1)
[2018-04-29 14:31] LABS: BICARBONATE 25.2 MEQ/L (21.0-32.0); BLOOD UREA NITROGEN 38 MG/DL (7-18); GLUCOSE,RANDOM 90 MG/DL (74-106)
[2018-04-29 14:34] LABS: ALT (GPT) 79 U/L (12-78); AST (GOT) 48 U/L (15-37); GLOMERULAR FILTRATION RATE 22 ML/MIN (>89)
[2018-04-29 14:35] LABS: TOTAL BILIRUBIN ADULT 3.5 MG/DL (0.2-1.0)
[2018-04-29 14:36] LABS: TOTAL PROTEIN 7.7 GM/DL (6.4-8.2)
[2018-04-29 14:37] LABS: ALKALINE PHOSPHATASE 96 U/L (45-117)
[2018-04-29 14:55] LABS: BILIRUBIN, URINE NEG (NEG); BLOOD, URINE SMALL (NEG); GLUCOSE,URINE NEG (NEG); KETONE, URINE TRACE mg/dL (NEG); NITRITE,URINE NEG (NEG); PH, URINE 5.5 (5.0-8.5); URINE COLOR YELLOW (YELLW/STRAW); URINE LEUKOCYTE ESTERASE SMALL (NEG)
[2018-04-29 15:02] LABS: WBC, URINE 0-2 /hpf (0-5)
[2018-04-29 15:03] LABS: AMORPHOUS SEDIMENT, URINE FEW; RBC, URINE 0-3 /hpf (0-3); SQUAMOUS EPITHELIAL CELL URINE 0-5 /hpf (0-5)
[2018-04-29 15:41] VITALS: BP 107/77; PULSE 120; RESP 20; O2SAT 97
--- NOTE | 2018-04-29 15:54 | RADRPT ---
EXAM DATE: 04/29/2018 3:02 PM EDT AGE/SEX: 47 years / Male INDICATIONS: Abdominal pain. Nausea, vomiting and diarrhea. CLINICAL DATA: This is the patient's initial encounter. Patient reports that signs and symptoms have been present for 3 days and indicates a pain score of 8/10. MEDICAL/SURGICAL HISTORY: Renal calculi. Hypothyroidism. Hypertension. Colitis. Seizures. Pa raplegia. Cholecystectomy. Appendectomy. Umbilical hernia repair. Neurogenic bladder. Thoracic a nd lumbar fusions. RADIATION DOSE: 23.68 CTDI (mGy) COMPARISON: [facility], CT ABDOMEN & PELVIS W CONTRAST, 12/08/2017. . TECHNIQUE: Multiple contiguous axial images were obtained through the abdomen. Images were obtained using multiple row detector helical technique. Using dose reduction techniques, radiation dose was ke pt as low as reasonably achievable to obtain optimal diagnostic quality images. FINDINGS: Lower Lungs: The visualized lower lungs are clear. Liver: Pneumobilia as previously. Diminished attenuation in the liver consistent with steatosis. No e vidence of focal liver mass or ductal dilatation. Gallbladder surgically absent. Spleen: Homogeneous density without enlargement. Pancreas: Unremarkable without mass or calcification. Kidneys: Normal in size and shape. No evidence of mass or hydronephrosis. Adrenal Glands: Unremarkable. Aorta: The aorta and proximal iliac vessels are grossly unremarkable without aneurysmal dilation. Bowel/Mesentery: The bowel loops are grossly unremarkable. The cecum and sigmoid colon have a normal configuration. Abdominal Wall: Intact. Retroperitoneum: No evidence of adenopathy in the retrocrural, para-aortic, or deep pelvic regions. Bladder: Contours are smooth. Reproductive Organs: No abnormal masses or calcifications seen. Inguinal: The inguinal region is unremarkable without evidence of adenopathy. Bony Structures: Previous extensive thoracolumbar hardware fusion. No acute bony findings. CONCLUSION: Stable appearance of the abdomen. Hepatic steatosis. Pneumobilia. No acute findings. Electronically signed by: Robert Pérez MD 04/29/2018 3:52 PM EDT
--- NOTE | 2018-04-29 16:14 | PD ---
Data Data Last Documented VS Vital Signs Date Time Temp Pulse Resp B/P (MAP) Pulse Ox O2 Delivery O2 Flow Rate FiO2 04/29/18 15:41 120 20 107/77 (87) 97 04/29/18 13:32 98.5 Orders Orders Sepsis Workup Initiated (04/29/18 ) Complete Blood Count With Diff (04/29/18 13:52) Comprehensive Metabolic Panel (04/29/18 13:52) Lactic Acid Sepsis Protocol (04/29/18 13:52) Urinalysis - C+S If Indicated (04/29/18 13:52) Blood Culture (04/29/18 13:52) Chest, Single Ap (04/29/18 13:52) Iv Access Insert/Monitor (04/29/18 13:52) Cath For Specimen (04/29/18 13:52) Group A Rapid Strep Screen (04/29/18 13:52) Influenzae A/B Antigen (04/29/18 13:52) Prochlorperazine Inj (Compazine Inj) (04/29/18 14:00) Diphenhydramine Inj (Benadryl Inj) (04/29/18 14:00) Morphine Inj (Morphine Inj) (04/29/18 14:00) Sodium Chlor 0.9% 1000 Ml Inj (Ns 1000 M (04/29/18 14:00) Sodium Chlor 0.9% 1000 Ml Inj (Ns 1000 M (04/29/18 14:00) Strep Culture (Group A) (04/29/18 14:10) Ct Abd/Pel W/O Iv Contrast (04/29/18 14:40) Hydromorphone Pf Inj (Dilaudid Pf Inj) (04/29/18 16:15) Labs Laboratory Tests Test 04/29/18 14:05 04/29/18 14:50 White Blood Count 11.8 TH/MM3 Red Blood Count 5.94 MIL/MM3 Hemoglobin 18.8 GM/DL Hematocrit 56.4 % Mean Corpuscular Volume 94.9 FL Mean Corpuscular Hemoglobin 31.6 PG Mean Corpuscular Hemoglobin Concent 33.3 % Red Cell Distribution Width 15.7 % Platelet Count 236 TH/MM3 Mean Platelet Volume 8.0 FL Neutrophils (%) (Auto) 70.5 % Lymphocytes (%) (Auto) 12.6 % Monocytes (%) (Auto) 15.2 % Eosinophils (%) (Auto) 0.9 % Basophils (%) (Auto) 0.8 % Neutrophils # (Auto) 8.3 TH/MM3 Lymphocytes # (Auto) 1.5 TH/MM3 Monocytes # (Auto) 1.8 TH/MM3 Eosinophils # (Auto) 0.1 TH/MM3 Basophils # (Auto) 0.1 TH/MM3 CBC Comment DIFF FINAL Differential Comment Blood Urea Nitrogen 38 MG/DL Creatinine 3.10 MG/DL Random Glucose 90 MG/DL Total Protein 7.7 GM/DL Albumin 4.0 GM/DL Calcium Level 9.2 MG/DL Alkaline Phosphatase 96 U/L Aspartate Amino Transf (AST/SGOT) 48 U/L Alanine Aminotransferase (ALT/SGPT) 79 U/L Total Bilirubin 3.5 MG/DL Sodium Level 135 MEQ/L Potassium Level 4.3 MEQ/L Chloride Level 97 MEQ/L Carbon Dioxide Level 25.2 MEQ/L Anion Gap 13 MEQ/L Estimat Glomerular Filtration Rate 22 ML/MIN Lactic Acid Level 1.8 mmol/L Urine Collection Type CATH Urine Color YELLOW Urine Turbidity CLEAR Urine pH 5.5 Urine Specific [place] LESS/EQUAL 1.005 Urine Protein TRACE mg/dL Urine Glucose (UA) NEG mg/dL Urine Ketones TRACE mg/dL Urine Occult Blood SMALL Urine Nitrite NEG Urine Bilirubin NEG Urine Urobilinogen 0.2 MG/DL Urine Leukocyte Esterase SMALL Urine RBC 0-3 /hpf Urine WBC 0-2 /hpf Urine Squamous Epithelial Cells 0-5 /hpf Urine Amorphous Sediment FEW Microscopic Urinalysis Comment CATH-CULT NOT IND MDM Supervised Visit with BUTCH: No Narrative Course I took over care of this patient from Dr. Pfeiffer. He presents to the emergency department with several days of vomiting and abdominal pain. Labs demonstrate hemoconcentration, acute kidney injury and a total bilirubin of 3.5. He is tachycardic, likely secondary to pain, but has no other SIRS criteria to suggest sepsis or cholangitis at this time. Patient has history in 2017 of having choledocholithiasis requiring sphincterotomy. I suspect this is the etiology of his symptoms. His GI doctor is Dr. Carver. Patient will be admitted for IV fluids and likely ERCP. Diagnosis Primary Impression: Acute renal failure Qualified Codes: N17.9 - Acute kidney failure, unspecified Additional Impression: Choledocholithiasis Admitting Information Admitting Physician Requests: Admit Disposition: 01 DISCHARGE HOME Condition: Stable Khushi Albert MD Apr 29, 2018 16:14
[2018-04-29] MEDS ORDERED: HYDROmorphone HCL PF 2 MG/ML VIAL IV PUSH ONE (16:15)
[2018-04-29] MEDS ORDERED: MORPHINE SULFATE 4 MG/ML INJ IM PRN (16:30)
[2018-04-29] MEDS ORDERED: NALOXONE HCL 0.4 MG/ML AMP IV PUSH PRN (16:30)
[2018-04-29] MEDS ORDERED: LACTULOSE SYRUP 20 GM/30 ML CUP PO PRN (16:30)
[2018-04-29] MEDS ORDERED: MAGNESIUM HYDROXIDE SUSP 30 ML CUP PO PRN (16:30)
[2018-04-29] MEDS ORDERED: ACETAMINOPHEN 325 MG TAB PO PRN (16:30)
[2018-04-29] MEDS ORDERED: BISACODYL 10 MG SUPP RECTAL PRN (16:30)
[2018-04-29] MEDS ORDERED: SENNOSIDES 8.6 MG TAB PO PRN (16:30)
--- NOTE | 2018-04-29 16:41 | HHI.HP ---
[facility] Service [facility] Primary Care Physician Javy Hernández MD Admission Diagnosis Acute kidney injury, choledocolithiasis Diagnoses: (1) Abdominal pain (2) Choledocholithiasis (3) Acute renal failure Chief Complaint: Abdominal pain, nausea and vomiting, diarrhea or sore throat Travel History International Travel<30 Days: No Contact w/Intl Traveler <30 Da: No Traveled to Known Affected Are: No Sepsis Criteria SIRS Criteria (2 or more): Heart rate over 90, RR > 20 or PaCO2 < 32 History of Present Illness This is a pleasant 47-year-old male patient with a known medical history of vital cord injury with resultant paraplegia, hypertension, hyperlipidemia, hypothyroidism who presented to the ED with complaints of abdominal pain with associated nausea, vomiting, diarrhea and sore throat. Patient states that his symptoms started 3 days ago and has been unable to sleep as well as eat or drink. Patient states that the pain is in his mid epigastric area and radiates up his chest, characterized as a sharp and stabbing sensation, rated an 8 out of 10 at its worst on pain scale, has improved with IV Dilaudid now rated a 6 out of 7 on pain scale. Patient does admit to nausea and vomiting, does state that anything he tries to eat he has been throwing up over the past few days. Relatedly patient has had a sore throat and has been unable to eat as well. Patient does take chronic pain medications for neuropathy and is usually constipated although patient did have one bout of diarrhea yesterday. Does admit to belching. Denies any subjective fevers, chills, cough, shortness of breath, dysuria. Does state that his urine has been darker than usual. No recent antibiotic use. No recent changes to his medicines. Does follow with pain management, last seen 2 weeks ago with no changes to his medicines. His commercial sales consultant is Dr. Bass, last seen roughly a year ago. It should be noted that patient was hospitalized last May, having cholelithiasis requiring sphincterectomy. Review of Systems Constitutional: COMPLAINS OF: Fatigue, DENIES: Diaphoretic episodes, Fever, Chills Endocrine: DENIES: Polydipsia Eyes: DENIES: Diplopia Respiratory: DENIES: Cough, Sputum production, Shortness of breath Cardiovascular: DENIES: Chest pain, Palpitations Gastrointestinal: COMPLAINS OF: Abdominal pain, Diarrhea, Nausea, Vomiting, DENIES: Black stools, Bloody stools, Constipation Musculoskeletal: DENIES: Joint pain Hematologic/lymphatic: DENIES: Bruising Immunologic/allergic: DENIES: Eczema Neurologic: DENIES: Abnormal gait Psychiatric: DENIES: Anxiety Except as stated in HPI: all other systems reviewed are Neg Past Family Social History Past Medical History Arthritis Anxiety Hypertension Hyperlipemia Hypothyroidism Spinal injury with paraplegia History of kidney stones Hypothyroidism History of seizures Past Surgical History Umbilical hernia Appendectomy Raul placement in back Cholecystectomy Spinal fusion L1-T12 with raul placement Tonsillectomy Reported Medications Active Reported Hydromorphone (Hydromorphone HCl) 2 Mg Tab Unknown Dose PO Q4H PRN Metoprolol Succinate ER 24 HR (Metoprolol Succinate) 50 Mg Tab 50 Mg PO DAILY Xanax (Alprazolam) 0.5 Mg Tab 1 Mg PO HS Atorvastatin (Atorvastatin Calcium) 40 Mg Tab 40 Mg PO DAILY Zolpidem (Zolpidem Tartrate) 10 Mg Tab 10 Mg PO HS PRN Toviaz ER (Fesoterodine Fumarate) 8 Mg Cassandra 8 Mg PO DAILY Losartan (Losartan Potassium) 100 Mg Tab 100 Mg PO DAILY Levothyroxine (Levothyroxine Sodium) 300 Mcg Tab 300 Mcg PO DAILY Amlodipine (Amlodipine Besylate) 5 Mg Tab 5 Mg PO DAILY Allergies: Coded Allergies: vancomycin (Verified Adverse Reaction, Intermediate, AFFECTS BLOOD CELLS, 04/29/18) *MDRO Multi-Drug Resistant Organism (Verified Adverse Reaction, Unknown, ESBL, 04/29/18) ESBL (urine & blood) - 01/13/17 ESBL (urine) 05/25/17 Active Ordered Medications Current Medications Medications (Trade) Dose Ordered Sig/Renetta Route Start Time Stop Time Status Last Admin Sodium Chloride 1,000 ml @ 100 mls/hr Q10H IV 04/29/18 16:27 UNV (NS Flush) 2 ml UNSCH PRN IV FLUSH 04/29/18 16:30 UNV (NS Flush) 2 ml BID IV FLUSH 04/29/18 21:00 UNV (Tylenol) 650 mg Q4H PRN PO 04/29/18 16:30 UNV (Reglan Inj) 5 mg Q6H PRN IV PUSH 04/29/18 16:30 UNV (Narcan Inj) 0.4 mg UNSCH PRN IV PUSH 04/29/18 16:30 UNV (Firda-Colace) 1 tab BID PO 04/29/18 21:00 UNV (Milk Of Magnesia Liq) 30 ml Q12H PRN PO 04/29/18 16:30 UNV (Senokot) 17.2 mg Q12H PRN PO 04/29/18 16:30 UNV (Dulcolax Supp) 10 mg DAILY PRN RECTAL 04/29/18 16:30 UNV (Lactulose Liq) 30 ml DAILY PRN PO 04/29/18 16:30 UNV Piperacillin Sod/ Tazobactam Sod 50 ml @ 100 mls/hr Q8H IV 04/29/18 16:30 UNV (Morphine Inj) 2 mg Q4H PRN IM 04/29/18 16:30 UNV (Xanax) 1 mg HS PO 04/29/18 21:00 UNV (Norvasc) 5 mg DAILY PO 04/30/18 09:00 UNV (Lipitor) 40 mg DAILY PO 04/30/18 09:00 UNV (Synthroid) 300 mcg DAILY PO 04/30/18 09:00 UNV (Cozaar) 100 mg DAILY PO 04/30/18 09:00 UNV (Toprol Xl) 50 mg DAILY PO 04/30/18 09:00 UNV (Ambien) 10 mg HS PRN PO 04/29/18 16:30 UNV Non-Formulary Medication 8 mg DAILY PO 04/30/18 09:00 UNV Family History Reviewed and non contributory. Social History No tobacco or alcohol. Admits to occasional marijuana. Physical Exam Vital Signs Vital Signs Date Time Temp Pulse Resp B/P (MAP) Pulse Ox O2 Delivery O2 Flow Rate FiO2 04/29/18 15:41 120 20 107/77 (87) 97 04/29/18 13:32 98.5 127 20 136/80 (98) 97 Physical Exam GENERAL: Well-developed, well-nourished patient in NAD. SKIN: Warm and dry. No rash. HEAD: Normocephalic. Atraumatic. EYES: Pupils equal and round. No scleral icterus. No injection or drainage. ENT: No nasal bleeding or discharge. Mucous membranes pink and moist. NECK: Supple. Trachea midline. CARDIOVASCULAR: Regular rate and rhythm. S1, S2 noted. No murmur appreciated. No chest pain to palpation. RESPIRATORY: No accessory muscle use. Clear to auscultation. Breath sounds equal bilaterally. GASTROINTESTINAL: Abdomen soft, non-tender, nondistended. Normoactive bowel sounds x4. Pain to palpation in midepigastric area. MUSCULOSKELETAL: Extremities without clubbing, cyanosis, or edema. NEUROLOGICAL: Awake and alert. Bilateral lower extremity flaccid, history of paralysis. Lack of sensation in bilateral lateral extremities. No edema. Pedal pulses present. Normal speech. PSYCHIATRIC: Appropriate mood and affect; insight and judgment normal. Laboratory Laboratory Tests Test 04/29/18 14:05 04/29/18 14:50 White Blood Count 11.8 Red Blood Count 5.94 Hemoglobin 18.8 Hematocrit 56.4 Mean Corpuscular Volume 94.9 Mean Corpuscular Hemoglobin 31.6 Mean Corpuscular Hemoglobin Concent 33.3 Red Cell Distribution Width 15.7 Platelet Count 236 Mean Platelet Volume 8.0 Neutrophils (%) (Auto) 70.5 Lymphocytes (%) (Auto) 12.6 Monocytes (%) (Auto) 15.2 Eosinophils (%) (Auto) 0.9 Basophils (%) (Auto) 0.8 Neutrophils # (Auto) 8.3 Lymphocytes # (Auto) 1.5 Monocytes # (Auto) 1.8 Eosinophils # (Auto) 0.1 Basophils # (Auto) 0.1 CBC Comment DIFF FINAL Differential Comment Blood Urea Nitrogen 38 Creatinine 3.10 Random Glucose 90 Total Protein 7.7 Albumin 4.0 Calcium Level 9.2 Alkaline Phosphatase 96 Aspartate Amino Transf (AST/SGOT) 48 Alanine Aminotransferase (ALT/SGPT) 79 Total Bilirubin 3.5 Sodium Level 135 Potassium Level 4.3 Chloride Level 97 Carbon Dioxide Level 25.2 Anion Gap 13 Estimat Glomerular Filtration Rate 22 Lactic Acid Level 1.8 Urine Collection Type CATH Urine Color YELLOW Urine Turbidity CLEAR Urine pH 5.5 Urine Specific Buna LESS/EQUAL 1.005 Urine Protein TRACE Urine Glucose (UA) NEG Urine Ketones TRACE Urine Occult Blood SMALL Urine Nitrite NEG Urine Bilirubin NEG Urine Urobilinogen 0.2 Urine Leukocyte Esterase SMALL Urine RBC 0-3 Urine WBC 0-2 Urine Squamous Epithelial Cells 0-5 Urine Amorphous Sediment FEW Microscopic Urinalysis Comment CATH-CULT NOT IND Date/Time Source Procedure Growth Status 04/29/18 14:05 Blood Peripheral Aerobic Blood Culture Pending Received 04/29/18 14:05 Blood Peripheral Anaerobic Blood Culture Pending Received 04/29/18 14:10 Throat Group A Streptococcus Screen Pending Received Result Diagram: 04/29/18 1405 04/29/18 1405 Imaging Last Impressions Abdomen/Pelvis CT 04/29/18 1440 Signed Impressions: CONCLUSION: Stable appearance of the abdomen. Hepatic steatosis. Pneumobilia. No acute find ings. Chest X-Ray 04/29/18 1352 Signed Impressions: CONCLUSION: Negative examination. Septic Shock Reassessment Septic shock perfusion: reassessment completed Caprini VTE Risk Assessment Caprini VTE Risk Assessment: No/Low Risk (score <= 1) Caprini Risk Assessment Model Point Value = 1 Point Value = 2 Point Value = 3 Point Value = 5 Age 41-60 Minor surgery BMI > 25 kg/m2 Swollen legs Varicose veins or History of unexplained or recurrent spontaneous Oral contraceptives or hormone replacement Sepsis (< 1 month) Serious lung disease, including pneumonia (< 1 month) Abnormal pulmonary function Acute myocardial infarction Congestive heart failure (< 1 month) History of inflammatory bowel disease Medical patient at bed rest Age 61-74 Arthroscopic surgery Major open surgery (> 45 min) Laparoscopic surgery (> 45 min) Malignancy Confined to bed (> 72 hours) Immobilizing plaster cast Central venous access Age >= 75 History of VTE Family history of VTE Factor V Leiden Prothrombin [id number] Lupus anticoagulant Anticardiolipin antibodies Elevated serum homocysteine Heparin-induced thrombocytopenia Other congenital or acquired thrombophilia Stroke (< 1 month) Elective arthroplasty Hip, pelvis, or leg fracture Acute spinal cord injury (< 1 month) Prophylaxis Regimen Total Risk Factor Score Risk Level Prophylaxis Regimen 0-1 Low Early ambulation 2 Moderate Order ONE of the following: *Sequential Compression Device (SCD) *Heparin 5000 units SQ BID 3-4 Higher Order ONE of the following medications: *Heparin 5000 units SQ TID *Enoxaparin/Lovenox 40 mg SQ daily (WT < 150 kg, CrCl > 30 mL/min) *Enoxaparin/Lovenox 30 mg SQ daily (WT < 150 kg, CrCl > 10-29 mL/min) *Enoxaparin/Lovenox 30 mg SQ BID (WT < 150 kg, CrCl > 30 mL/min) AND/OR *Sequential Compression Device (SCD) 5 or more Highest Order ONE of the following medications: *Heparin 5000 units SQ TID (Preferred with Epidurals) *Enoxaparin/Lovenox 40 mg SQ daily (WT < 150 kg, CrCl > 30 mL/min) *Enoxaparin/Lovenox 30 mg SQ daily (WT < 150 kg, CrCl > 10-29 mL/min) *Enoxaparin/Lovenox 30 mg SQ BID (WT < 150 kg, CrCl > 30 mL/min) AND *Sequential Compression Device (SCD) Assessment and Plan Assessment and Plan This is a pleasant 47-year-old male patient with a known medical history of vital cord injury with resultant paraplegia, hypertension, hyperlipidemia, hypothyroidism who presented to the ED with complaints of abdominal pain with associated nausea, vomiting, diarrhea and sore throat. Patient states that his symptoms started 3 days ago and has been unable to sleep as well as eat or drink. Cholelithiasis with presence of abdominal pain, nausea, vomiting and diarrhea rule out enteritis versus other etiology. Elevated total bilirubin suspect secondary to above. - Abdominal/pelvis CT reviewed showing stable appearance. Hepatic steatosis. Pneumobilia. No acute findings. - Total bilirubin 3.5. Patient's total bili in November was 1.0. - Upon review of records patient had cholelithiasis with dilated common bile duct on CT in May 2017. Patient underwent an MRCP with cholelithiasis and mild distention. Status post cholecystectomy as well as ERCP with sphincterectomy and stone removal. Of note, pneumobilia was appreciated CT scan which was present at CT scan from November and is likely due to prior instrumentation. - Will obtain ultrasound gallbladder. Follow. Patient will likely need consult to gastroenterology, at this time will hold consult, obtain ultrasound and assess if improvement in symptoms in the morning. Will probably need ERCP. - Attempt clear liquid diet tonight, assess toleration. - Control pain, patient was given hydromorphone and morphine IV in ED. Morphine available IV as needed. - Start Zosyn IV. Continue. Monitor for infection. WBC 11. Afebrile. Tachycardic. UA negative. Influenza negative. Group A strep negative. Cultures pending, follow growth. - Reglan available to nausea or vomiting. - Supportive care. Acute renal failure suspect secondary to vomiting and poor - Creatinine 3.1 on presentation, GFR 22. Upon review of lab history, patient' s creatinine in November was 1.2. - Status post 2 L NS in ED. Will continue IV fluids. Ensure hydration. - Avoid nephrotoxins. - UA negative. - Will obtain renal ultrasound. Recheck BMP in a.m. Follow. Hypertension, chronic: Continue home medications. Monitor blood pressure trends. Hypothyroidism, chronic: We will continue home levothyroxine. DVT Prophylaxis: SCDs. Physician Certification 2 Midnight Certification Type: Admission for Inpatient Services Order for Inpatient Services The services are ordered in accordance with Medicare regulations or non- Medicare payer requirements, as applicable. In the case of services not specified as inpatient-only, they are appropriately provided as inpatient services in accordance with the 2-midnight benchmark. Estimated LOS (days): 3 3 days is the estimated time the patient will need to remain in the hospital, assuming treatment plan goals are met and no additional complications. Post-Hospital Plan: Not yet determined Problem Qualifiers (1) Abdominal pain: Qualified Codes: R10.84 - Generalized abdominal pain (2) Acute renal failure: Qualified Codes: N17.9 - Acute kidney failure, unspecified Marisol Mccarthy Apr 29, 2018 16:41
[2018-04-29 16:44] VITALS: BP 143/85; PULSE 120; RESP 20; O2SAT 100
[2018-04-29] MEDS: SODIUM CHLOR 0.9% 1000 ML INJ 1,000 ML IV SCH (17:06)
[2018-04-29] MEDS: PIPERACIL-TAZO 2.25 GM PREMIX 50 ML IV SCH (17:39)
[2018-04-29 17:50] VITALS: BP 141/90; PULSE 98; RESP 18; TEMP 99.5; O2SAT 96
--- NOTE | 2018-04-29 18:18 | RADRPT ---
EXAM DATE: 04/29/2018 6:12 PM EDT AGE/SEX: 47 years / Male INDICATIONS: Increased lab values. CLINICAL DATA: This is the patient's initial encounter. Patient reports that signs and symptoms have been present for 3 days and indicates a pain score of 8/10. MEDICAL/SURGICAL HISTORY: Cardiovascular disease. Hypercholesterolemia. Hypertension. Spinal cord injury - L1-T2. Paraplegia. Colitis. Kidney Stones. Hypothyroidism. MRSA. Umbilical herni a repair. Tonsillectomy. Cholecystectomy. Appendectomy. Spinal fusion/Rosas Rods. COMPARISON: No prior exams available for comparison. MEASUREMENTS: Liver:__ 19.4 cm. Common Bile Duct:___ 5mm. Right Kidney:___13.0 x 6.6 x 6.0 cm. Left Kidney:___12.3 x 6.5 x 6.1 cm. Spleen:___12.4 cm. Aorta: The proximal portion measures Not visualized. cm maximal. FINDINGS: Liver: Increased echotexture without focal lesion or ductal dilation. Portal Vein: Hepatopedal flow seen in portal vein. Common Duct: No intraluminal mass or stone visualized. Gallbladder: Surgically Absent. Pancreas: Not well visualized. Right Kidney: Normal echotexture and cortical thickness. No mass or hydronephrosis. Left Kidney: Normal echotexture and cortical thickness. No mass or hydronephrosis. Ascites: None Pleural Effusion: None Spleen: No focal lesion. Aorta: Not visualized due to bowel gas IVC: Not visualized due to bowel gas CONCLUSION: 1. Gallbladder surgically absent without biliary ductal dilatation. 2. Fatty infiltration of the liver. 3. No hydronephrosis or free fluid identified. Electronically signed by: Lanre Groves MD 04/29/2018 6:17 PM EDT
[2018-04-29] MEDS: ALPRAZolam 0.5 MG TAB PO SCH (19:20)
[2018-04-29] MEDS: DOCUSATE SODIUM 50 MG/SENNA 8.6 MG TAB PO SCH (19:20)
[2018-04-29] MEDS: SODIUM CHLORIDE 0.9% FLUSH 10 ML FLUSH IV FLUSH SCH (19:20)
[2018-04-29] MEDS: HYDROmorphone HCL PF 2 MG/ML VIAL IV PRN ×2 (19:21→23:37)
[2018-04-29 20:00] VITALS: BP 128/79; PULSE 118; RESP 20; TEMP 97.2; O2SAT 97
[2018-04-29] MEDS: ZOLPIDEM TARTRATE 10 MG TAB PO PRN (23:36)
[2018-04-30] VITALS: BP 138/84; PULSE 113; RESP 20; TEMP 97.2; O2SAT 98
[2018-04-30] MEDS: PIPERACIL-TAZO 2.25 GM PREMIX 50 ML IV SCH ×3 (01:26→16:07)
[2018-04-30] MEDS: HYDROmorphone HCL PF 2 MG/ML VIAL IV PRN ×5 (03:47→20:18)
[2018-04-30] MEDS: SODIUM CHLORIDE 0.9% FLUSH 10 ML FLUSH IV FLUSH PRN ×2 (03:47→05:32)
[2018-04-30] MEDS: SODIUM CHLOR 0.9% 1000 ML INJ 1,000 ML IV SCH ×2 (03:48→12:04)
[2018-04-30] MEDS: METOCLOPRAMIDE HCL 10 MG/2 ML VIAL IV PUSH PRN ×2 (05:32→20:22)
[2018-04-30 07:13] LABS: BASOPHIL # 0.1 TH/MM3 (0-0.2); BASOPHIL % 2.3 % (0.0-2.0); EOSINOPHIL # 0.1 TH/MM3 (0-0.4); EOSINOPHIL % 1.8 % (0.0-4.0); HEMATOCRIT 52.2 % (39.0-51.0); HEMOGLOBIN 17.2 GM/DL (13.0-17.0); LYMPH % 20.4 % (9.0-44.0); LYMPHOCYTE # 1.2 TH/MM3 (1.0-4.8); MEAN CELL VOLUME 96.2 FL (80.0-100.0); MEAN CORPUSCULAR HEMOGLOBIN 31.8 PG (27.0-34.0); MEAN PLATELET VOLUME 7.8 FL (7.0-11.0); MONO % 12.3 % (0.0-8.0); MONOCYTE # 0.7 TH/MM3 (0-0.9); NEUT % 63.2 % (16.0-70.0); RED BLOOD COUNT 5.43 MIL/MM3 (4.50-5.90); RED CELL DISTRIBUTION WIDTH 15.6 % (11.6-17.2); WHITE BLOOD COUNT 6.1 TH/MM3 (4.0-11.0)
[2018-04-30 07:36] LABS: CALCIUM 8.4 MG/DL (8.5-10.1)
[2018-04-30 07:37] LABS: BICARBONATE 26.8 MEQ/L (21.0-32.0)
[2018-04-30 07:39] LABS: PLATELET COUNT 164 TH/MM3 (150-450)
[2018-04-30 07:40] LABS: CREATININE 2.2 MG/DL (0.60-1.30)
[2018-04-30 07:50] VITALS: BP 128/67; PULSE 91; RESP 20; TEMP 96.4; O2SAT 96
[2018-04-30] MEDS: SODIUM CHLORIDE 0.9% FLUSH 10 ML FLUSH IV FLUSH SCH ×2 (08:17→21:00)
[2018-04-30] MEDS: amLODIPine BESYLATE 5 MG TAB PO SCH (08:17)
[2018-04-30] MEDS: TOLTERODINE TARTRATE 4 MG CAP LA PO SCH (08:17)
[2018-04-30] MEDS: LEVOTHYROXINE SODIUM 150 MCG TAB PO SCH (08:18)
[2018-04-30] MEDS: METOPROLOL SUCCINATE 50 MG EXTENDED RELEASE TAB PO SCH (08:18)
[2018-04-30] MEDS: ATORVASTATIN 40 MG TAB PO SCH (08:18)
[2018-04-30] MEDS: LOSARTAN 50 MG TAB PO SCH (08:18)
[2018-04-30] MEDS: DOCUSATE SODIUM 50 MG/SENNA 8.6 MG TAB PO SCH ×2 (08:20→20:17)
[2018-04-30] MEDS ORDERED: ALUMINUM/MAGNESIUM/SIMETH 30 ML CUP PO ONE (10:00)
--- NOTE | 2018-04-30 10:08 | HHI.PR ---
Subjective Remarks Follow-up gastroenteritis and elevated bilirubin. Patient seen and examined, sitting up in bed comfortably in no apparent distress. Patient denies any abdominal pain. Does admit to a bout of nausea and vomiting this morning, now resolved. Vital signs stable. Afebrile. Acute kidney injury improving with IV fluids. Patient is tolerating clear liquid diet. Objective Vitals Vital Signs Date Time Temp Pulse Resp B/P (MAP) Pulse Ox O2 Delivery O2 Flow Rate FiO2 04/30/18 07:50 96.4 91 20 128/67 (87) 96 04/30/18 00:37 20 04/30/18 00:00 97.2 113 20 138/84 (102) 98 04/29/18 20:00 97.2 118 20 128/79 (95) 97 04/29/18 17:50 99.5 98 18 141/90 (107) 96 04/29/18 17:39 04/29/18 16:44 120 20 143/85 (104) 100 04/29/18 15:41 120 20 107/77 (87) 97 04/29/18 13:32 98.5 127 20 136/80 (98) 97 I/O 04/29/18 04/29/18 04/29/18 04/30/18 04/30/18 04/30/18 07:00 15:00 23:00 07:00 15:00 23:00 Intake Total 460 ml 2603 ml Output Total 1950 ml Balance 460 ml 653 ml Intake Oral 360 ml 1500 ml IV Total 100 ml 1103 ml Output Urine Total 1950 ml # Voids 0 # Bowel Movements 0 0 Result Diagram: 04/30/18 0654 04/30/18 0654 Imaging Last Impressions Abdomen/Pelvis CT 04/29/18 1440 Signed Impressions: CONCLUSION: Stable appearance of the abdomen. Hepatic steatosis. Pneumobilia. No acute find ings. Chest X-Ray 04/29/18 1352 Signed Impressions: CONCLUSION: Negative examination. Abdomen Ultrasound 04/29/18 0000 Signed Impressions: CONCLUSION: 1. Gallbladder surgically absent without biliary ductal dilatation. 2. Fatty infiltration of the liver. 3. No hydronephrosis or free fluid identified. Objective Remarks GENERAL: Well-developed, well-nourished patient in NAD. SKIN: Warm and dry. No rash. HEAD: Normocephalic. Atraumatic. EYES: Pupils equal and round. No scleral icterus. No injection or drainage. ENT: No nasal bleeding or discharge. Mucous membranes pink and moist. NECK: Supple. Trachea midline. CARDIOVASCULAR: Regular rate and rhythm. S1, S2 noted. No murmur appreciated. No chest pain to palpation. RESPIRATORY: No accessory muscle use. Clear to auscultation. Breath sounds equal bilaterally. GASTROINTESTINAL: Abdomen soft, non-tender, nondistended. Normoactive bowel sounds x4. No tenderness. MUSCULOSKELETAL: Extremities without clubbing, cyanosis, or edema. NEUROLOGICAL: Awake and alert. Bilateral lower extremity flaccid, history of paralysis. Lack of sensation in bilateral lateral extremities. No edema. Pedal pulses present. Normal speech. PSYCHIATRIC: Appropriate mood and affect; insight and judgment normal. A/P Problem List: (1) Abdominal pain ICD Code: R10.9 - Unspecified abdominal pain Status: Acute (2) Choledocholithiasis ICD Code: K80.50 - Calculus of bile duct without cholangitis or cholecystitis without obstruction Status: Acute (3) Acute renal failure ICD Code: N17.9 - Acute kidney failure, unspecified Status: Acute Assessment and Plan This is a pleasant 47-year-old male patient with a known medical history of vital cord injury with resultant paraplegia, hypertension, hyperlipidemia, hypothyroidism who presented to the ED with complaints of abdominal pain with associated nausea, vomiting, diarrhea and sore throat. Patient states that his symptoms started 3 days ago and has been unable to sleep as well as eat or drink. Gastroenteritis presence of abdominal pain, nausea, vomiting and diarrhea Elevated total bilirubin suspect secondary to above. History of cholelithiasis Most likely Gilbert syndrome - Abdominal/pelvis CT reviewed showing stable appearance. Hepatic steatosis. Pneumobilia. No acute findings. - Total bilirubin 3.5. Patient's total bili in November was 1.0. - Upon review of records patient had cholelithiasis with dilated common bile duct on CT in May 2017. Patient underwent an MRCP with cholelithiasis and mild distention. Status post cholecystectomy as well as ERCP with sphincterectomy and stone removal. Of note, pneumobilia was appreciated CT scan which was present at CT scan from November and is likely due to prior instrumentation. - Abdominal ultrasound showing fatty liver, no hydronephrosis no biliary ductal dilation. - Patient tolerating clear liquid diet. Advance as tolerated. - Control pain, patient was given hydromorphone and morphine IV in ED. Morphine available IV as needed. - Start Zosyn IV. Continue. Monitor for infection. WBC 11. Afebrile. Tachycardic. UA negative. Influenza negative. Group A strep negative. Cultures pending, follow growth. - Reglan available to nausea or vomiting. - Supportive care. Acute renal failure suspect secondary to vomiting and poor intake, improving. - Creatinine 3.1 on presentation, GFR 22. Creatinine 2.2 today. Upon review of lab history, patient's creatinine in November was 1.2. - Status post 2 L NS in ED. Will continue IV fluids. Ensure hydration. - Avoid nephrotoxins. - UA negative. - Abdominal ultrasound showing no hydronephrosis. No stones. Follow BMP. Hypertension, chronic: Continue home medications. Monitor blood pressure trends. Hypothyroidism, chronic: Will continue home levothyroxine. DVT Prophylaxis: SCDs. Problem Qualifiers (1) Abdominal pain: Qualified Codes: R10.84 - Generalized abdominal pain (2) Acute renal failure: Qualified Codes: N17.9 - Acute kidney failure, unspecified Marisol Mccarthy Apr 30, 2018 10:08
[2018-04-30 10:22] LABS: ALBUMIN 3.7 GM/DL (3.4-5.0)
[2018-04-30 10:24] LABS: DIRECT BILIRUBIN ADULT 0.3 MG/DL (0.0-0.2)
[2018-04-30 10:26] LABS: INDIRECT BILIRUBIN 3.3 MG/DL (0.0-0.8); TOTAL BILIRUBIN ADULT 3.6 MG/DL (0.2-1.0)
[2018-04-30 10:27] LABS: TOTAL PROTEIN 7.1 GM/DL (6.4-8.2)
[2018-04-30] MEDS: metroNIDAZOLE 500 MG INJ 100 ML IV SCH ×2 (11:42→20:20)
[2018-04-30] MEDS: PANTOPRAZOLE SODIUM 40 MG VIAL IV PUSH SCH (11:47)
[2018-04-30 11:50] VITALS: BP 159/78; PULSE 103; RESP 20; TEMP 97.7; O2SAT 95
--- NOTE | 2018-04-30 13:33 | MB ---
cc: Marina Ruelas MD DATE: 04/30/2018 REASON FOR REFERRAL: Nausea, vomiting, abdominal pain. Thank you for the consultation. HISTORY OF PRESENT ILLNESS: A 47-year-old gentleman who has a spinal cord injury in the past with paralysis and he has history of hypertension, hyperlipidemia and hypothyroidism, was doing well until Wednesday when he started having abdominal pain associated with nausea, vomiting and some diarrhea. The patient stated that symptoms has been going on since Wednesday, getting worse. He feels that he is upchucking his food, with midepigastric discomfort at its worst was 7-8/10, but now it is about 2. The patient feels better, but still having some discomfort and acid reflux. The patient also had diarrhea, a few episodes on Wednesday and and a little bit yesterday. Patient had acute renal insufficiency, most likely related to hydration. REVIEW OF SYSTEMS: All 12-point negative except HPI. PAST MEDICAL HISTORY: 1. Significant for hypothyroidism. 2. Seizure. 3. Spinal injury with paraplegia. 4. Hyperlipidemia. 5. Hypertension. 6. Anxiety. 7. Arthritis. 8. Hypothyroidism. PAST SURGICAL HISTORY: 1. Spinal fusion. 2. Tonsillectomy. 3. Raul placement in the back. 4. Appendectomy. 5. Umbilical hernia. ALLERGIES: VANCOMYCIN. The patient also has multi-drug resistant organism. MEDICATIONS: Reviewed in the chart. FAMILY HISTORY: Noncontributory. SOCIAL HISTORY: No tobacco. Occasional marijuana and alcohol. PHYSICAL EXAMINATION: GENERAL: Alert, oriented, in no acute distress, well-developed, well-nourished. VITAL SIGNS: Stable. No fever. HEENT: Pupils round, reactive to light. NECK: Supple. CHEST: Clear to auscultation and percussion. CARDIAC: Regular rate and rhythm. No murmur or gallop at this time. ABDOMEN: Soft, mild tenderness in the midepigastric area. Positive bowel sounds. No hepatosplenomegaly. The patient is obese. MUSCULOSKELETAL: The patient has paraplegia with some atrophy in the lower extremities. NEUROLOGIC: Alert and oriented. PSYCHOLOGIC: Appropriate. LABORATORY STUDIES: BUN 30; creatinine 2.2, down from 3.1. Total bilirubin was 3.6, direct bilirubin 0.3, indirect 3.3, alkaline phosphatase was 80, albumin 3.7. White count 6.1, down from 11.8; hemoglobin 17.2, platelet 164. IMAGING STUDIES: CT of the abdomen was negative except hepatic steatosis. Abnormal ultrasound. Gallbladder surgical absence. No biliary tree abnormality. Fatty infiltrate of the liver. ASSESSMENT AND PLAN: 1. A 47-year-old male who has a history of nausea, vomiting, diarrhea, most likely viral illness with gastroenteritis. The patient slightly doing better. We will keep observing him and if he continued to have nausea, vomiting, and abdominal pain, we would consider doing upper endoscopy either tomorrow or Wednesday. Meanwhile, continue proton pump inhibitor, antiemetics, supportive care. 2. Elevated liver function tests, most likely Gilbert syndrome since its unconjugated bilirubin. His AST and ALT are back to normal. 3. Acute renal insufficiency, most likely related to dehydration. We will followup and see how it is doing. MD BRITTANY Duenas/SURESH , 11:37 AM , 01:31 PM
[2018-04-30 15:50] VITALS: BP 133/85; PULSE 87; RESP 20; TEMP 98.4; O2SAT 96
[2018-04-30] MEDS: ALUMINUM/MAGNESIUM/SIMETH 30 ML CUP PO PRN (16:11)
[2018-04-30 20:00] VITALS: BP 167/106; PULSE 89; RESP 20; TEMP 97.1; O2SAT 99
[2018-04-30] MEDS: ALPRAZolam 0.5 MG TAB PO SCH (20:17)
[2018-04-30] MEDS: PROCHLORPERAZINE INJ 10 MG/2 ML VIAL IV PUSH PRN (21:59)
[2018-05-01] VITALS: BP 147/91; PULSE 82; RESP 20; TEMP 97.7; O2SAT 97
[2018-05-01] MEDS: HYDROmorphone HCL PF 2 MG/ML VIAL IV PRN ×5 (00:02→16:43)
[2018-05-01] MEDS: PIPERACIL-TAZO 2.25 GM PREMIX 50 ML IV SCH ×2 (00:02→08:07)
[2018-05-01] MEDS: ZOLPIDEM TARTRATE 10 MG TAB PO PRN (00:02)
[2018-05-01] MEDS: SODIUM CHLOR 0.9% 1000 ML INJ 1,000 ML IV SCH ×2 (00:05→08:10)
[2018-05-01 04:00] VITALS: BP 147/96; PULSE 97; RESP 20; TEMP 92.6; O2SAT 99
[2018-05-01] MEDS: metroNIDAZOLE 500 MG INJ 100 ML IV SCH (04:23)
[2018-05-01] MEDS: METOCLOPRAMIDE HCL 10 MG/2 ML VIAL IV PUSH PRN ×2 (05:53→16:46)
[2018-05-01 07:51] LABS: CALCIUM 8.6 MG/DL (8.5-10.1)
[2018-05-01 07:52] LABS: BICARBONATE 25.6 MEQ/L (21.0-32.0)
[2018-05-01 08:00] VITALS: BP 194/80; PULSE 87; RESP 18; TEMP 96.7
[2018-05-01 08:03] LABS: CREATININE 1.3 MG/DL (0.60-1.30)
[2018-05-01] MEDS: ALUMINUM/MAGNESIUM/SIMETH 30 ML CUP PO PRN ×2 (08:11→16:41)
[2018-05-01] MEDS: SODIUM CHLORIDE 0.9% FLUSH 10 ML FLUSH IV FLUSH SCH (08:11)
[2018-05-01] MEDS: DOCUSATE SODIUM 50 MG/SENNA 8.6 MG TAB PO SCH (08:11)
[2018-05-01] MEDS: METOPROLOL SUCCINATE 50 MG EXTENDED RELEASE TAB PO SCH (08:12)
[2018-05-01] MEDS: TOLTERODINE TARTRATE 4 MG CAP LA PO SCH (08:12)
[2018-05-01] MEDS: LOSARTAN 50 MG TAB PO SCH (08:12)
[2018-05-01] MEDS: ATORVASTATIN 40 MG TAB PO SCH (08:12)
[2018-05-01] MEDS: amLODIPine BESYLATE 5 MG TAB PO SCH (08:12)
[2018-05-01] MEDS: LEVOTHYROXINE SODIUM 150 MCG TAB PO SCH (08:12)
[2018-05-01 08:41] LABS: ALBUMIN 3.6 GM/DL (3.4-5.0)
[2018-05-01 08:44] LABS: DIRECT BILIRUBIN ADULT 0.3 MG/DL (0.0-0.2)
[2018-05-01 08:46] LABS: INDIRECT BILIRUBIN 2.6 MG/DL (0.0-0.8); TOTAL BILIRUBIN ADULT 2.9 MG/DL (0.2-1.0); TOTAL PROTEIN 6.7 GM/DL (6.4-8.2)
[2018-05-01 09:03] VITALS: BP 194/80; PULSE 103; RESP 18; TEMP 96.7; O2SAT 97
--- NOTE | 2018-05-01 09:32 | HHI.PR ---
Subjective Remarks Follow-up enteritis and elevated bilirubin and acute kidney injury. Patient seen and examined, sitting in bed comfortably in no apparent distress. Requesting to go home. Acute kidney injury resolved today has been continued on IV fluids overnight. Patient is n.p.o. for GI procedure today. Likely discharge later this afternoon depending on GI recommendations. Vital signs stable. Afebrile. Objective Vitals Vital Signs Date Time Temp Pulse Resp B/P (MAP) Pulse Ox O2 Delivery O2 Flow Rate FiO2 05/01/18 09:03 96.7 103 18 194/80 (118) 97 05/01/18 08:00 96.7 87 18 194/80 (118) 05/01/18 04:00 92.6 97 20 147/96 (113) 99 05/01/18 00:00 97.7 82 20 147/91 (109) 97 04/30/18 20:00 97.1 89 20 167/106 (126) 99 04/30/18 15:50 98.4 87 20 133/85 (101) 96 04/30/18 11:50 97.7 103 20 159/78 (105) 95 I/O 04/30/18 04/30/18 04/30/18 05/01/18 05/01/18 05/01/18 07:00 15:00 23:00 07:00 15:00 23:00 Intake Total 2603 ml 1000 ml 1929 ml 60 ml 950 ml Output Total 1950 ml 650 ml 350 ml Balance 653 ml 1000 ml 1279 ml -290 ml 950 ml Intake Oral 1500 ml 1421 ml 60 ml IV Total 1103 ml 1000 ml 508 ml 950 ml Output Urine Total 1950 ml 650 ml 350 ml # Voids 1 # Bowel Movements 0 0 0 Result Diagram: 04/30/18 0654 05/01/18 0712 Imaging Last Impressions Abdomen/Pelvis CT 04/29/18 1440 Signed Impressions: CONCLUSION: Stable appearance of the abdomen. Hepatic steatosis. Pneumobilia. No acute find ings. Chest X-Ray 04/29/18 1352 Signed Impressions: CONCLUSION: Negative examination. Abdomen Ultrasound 04/29/18 0000 Signed Impressions: CONCLUSION: 1. Gallbladder surgically absent without biliary ductal dilatation. 2. Fatty infiltration of the liver. 3. No hydronephrosis or free fluid identified. Objective Remarks GENERAL: Well-developed, well-nourished patient in NAD. SKIN: Warm and dry. No rash. HEAD: Normocephalic. Atraumatic. EYES: Pupils equal and round. No scleral icterus. No injection or drainage. ENT: No nasal bleeding or discharge. Mucous membranes pink and moist. NECK: Supple. Trachea midline. CARDIOVASCULAR: Regular rate and rhythm. S1, S2 noted. No murmur appreciated. No chest pain to palpation. RESPIRATORY: No accessory muscle use. Clear to auscultation. Breath sounds equal bilaterally. GASTROINTESTINAL: Abdomen soft, non-tender, nondistended. Normoactive bowel sounds x4. No tenderness. MUSCULOSKELETAL: Extremities without clubbing, cyanosis, or edema. NEUROLOGICAL: Awake and alert. Bilateral lower extremity flaccid, history of paralysis. Lack of sensation in bilateral lateral extremities. No edema. Pedal pulses present. Normal speech. PSYCHIATRIC: Appropriate mood and affect; insight and judgment normal. A/P Problem List: (1) Abdominal pain ICD Code: R10.9 - Unspecified abdominal pain Status: Acute (2) Choledocholithiasis ICD Code: K80.50 - Calculus of bile duct without cholangitis or cholecystitis without obstruction Status: Acute (3) Acute renal failure ICD Code: N17.9 - Acute kidney failure, unspecified Status: Acute Assessment and Plan This is a pleasant 47-year-old male patient with a known medical history of vital cord injury with resultant paraplegia, hypertension, hyperlipidemia, hypothyroidism who presented to the ED with complaints of abdominal pain with associated nausea, vomiting, diarrhea and sore throat. Patient states that his symptoms started 3 days ago and has been unable to sleep as well as eat or drink. Gastroenteritis presence of abdominal pain, nausea, vomiting and diarrhea Elevated total bilirubin suspect secondary to above. History of cholelithiasis Most likely Gilbert syndrome - Abdominal/pelvis CT reviewed showing stable appearance. Hepatic steatosis. Pneumobilia. No acute findings. - Total bilirubin 3.5. Patient's total bili in November was 1.0. - Upon review of records patient had cholelithiasis with dilated common bile duct on CT in May 2017. Patient underwent an MRCP with cholelithiasis and mild distention. Status post cholecystectomy as well as ERCP with sphincterectomy and stone removal. Of note, pneumobilia was appreciated CT scan which was present at CT scan from November and is likely due to prior instrumentation. - Abdominal ultrasound showing fatty liver, no hydronephrosis no biliary ductal dilation. - Patient tolerating clear liquid diet. Advance as tolerated. N.p.o. today for GI procedure. - Control pain, patient was given hydromorphone and morphine IV in ED. Morphine available IV as needed. - Start Zosyn IV. Continue. Monitor for infection. WBC 11. Afebrile. Tachycardic. UA negative. Influenza negative. Group A strep negative. Blood cultures with no growth to date. - Reglan available to nausea or vomiting. - Supportive care. Acute renal failure suspect secondary to vomiting and poor intake, improving. - Creatinine 3.1 on presentation, GFR 22. Creatinine 2.2 today. Upon review of lab history, patient's creatinine in November was 1.2. Back to baseline today on morning labs. - Status post 2 L NS in ED. Will continue IV fluids. Ensure hydration. Encourage p.o. intake after GI procedure today. - Avoid nephrotoxins. - UA negative. - Abdominal ultrasound showing no hydronephrosis. No stones. Follow BMP. Hypertension, chronic: Continue home medications. Monitor blood pressure trends. Hypothyroidism, chronic: Will continue home levothyroxine. DVT Prophylaxis: SCDs. Discharge Planning Likely discharge home later this afternoon depending on GI recommendations. Problem Qualifiers (1) Abdominal pain: Qualified Codes: R10.84 - Generalized abdominal pain (2) Acute renal failure: Qualified Codes: N17.9 - Acute kidney failure, unspecified Marisol Mccarthy May 01, 2018 09:32
--- NOTE | 2018-05-01 09:41 | PD.PROCEDR ---
GI Procedure PROCEDURE PERFORMED Upper endoscopy with biopsies INDICATION FOR PROCEDURE Nausea vomiting abdominal pain PROCEDURE: The procedure, risks and benefits were discussed with Mr. Hassan and informed consent was obtained. Anesthesia sedated him with Diprivan. He was placed in the left lateral decubitus position. EGD: The Pentax videoscope was introduced through the oropharynx and advanced to the second portion of the duodenum under direct visualization. Retroflexion was performed in the stomach. BLOOD LOSS: None SPECIMENS REMOVED: Distal esophagus, antrum COMPLICATIONS: None IMPRESSION: Severe grade D esophagitis in the distal part of the esophagus biopsy was done Gastritis biopsy was done Duodenum was normal PLAN: No NSAIDs Protonix 40 mg daily Follow-up biopsy Antiemetics as needed Diet as tolerated Marina Ruelas MD May 01, 2018 09:41
--- NOTE | 2018-05-01 09:42 | HHI.GIFU ---
Subjective Remarks Patient still having significant reflux and he vomited last night still complaining of abdominal pain in the midepigastric area slightly better but still significant Objective Vitals I&O Vital Signs Date Time Temp Pulse Resp B/P (MAP) Pulse Ox O2 Delivery O2 Flow Rate FiO2 05/01/18 09:03 96.7 103 18 194/80 (118) 97 05/01/18 08:00 96.7 87 18 194/80 (118) 05/01/18 04:00 92.6 97 20 147/96 (113) 99 05/01/18 00:00 97.7 82 20 147/91 (109) 97 04/30/18 20:00 97.1 89 20 167/106 (126) 99 04/30/18 15:50 98.4 87 20 133/85 (101) 96 04/30/18 11:50 97.7 103 20 159/78 (105) 95 I/O 04/30/18 04/30/18 04/30/18 05/01/18 05/01/18 05/01/18 07:00 15:00 23:00 07:00 15:00 23:00 Intake Total 2603 ml 1000 ml 1929 ml 60 ml 950 ml Output Total 1950 ml 650 ml 350 ml Balance 653 ml 1000 ml 1279 ml -290 ml 950 ml Intake Oral 1500 ml 1421 ml 60 ml IV Total 1103 ml 1000 ml 508 ml 950 ml Output Urine Total 1950 ml 650 ml 350 ml # Voids 1 # Bowel Movements 0 0 0 Laboratory Laboratory Tests Test 05/01/18 07:12 Blood Urea Nitrogen 17 Creatinine 1.30 Random Glucose 93 Calcium Level 8.6 Sodium Level 139 Potassium Level 4.0 Chloride Level 105 Carbon Dioxide Level 25.6 Anion Gap 8 Estimat Glomerular Filtration Rate 59 Total Bilirubin 2.9 Direct Bilirubin 0.3 Indirect Bilirubin 2.6 Aspartate Amino Transf (AST/SGOT) 44 Alanine Aminotransferase (ALT/SGPT) 70 Alkaline Phosphatase 72 Total Protein 6.7 Albumin 3.6 Date/Time Source Procedure Growth Status 04/29/18 14:05 Blood Peripheral Aerobic Blood Culture - Preliminary NO GROWTH IN 1 DAY Resulted 04/29/18 14:05 Blood Peripheral Anaerobic Blood Culture - Preliminary NO GROWTH IN 1 DAY Resulted 04/29/18 14:10 Throat Group A Streptococcus Screen - Preliminary NO BETA STREPTOCOCCI ISOLATED AT 24 H... Resulted Physical Exam HEENT: Pupils round and reactive to light; normocephalic; atraumatic; no jaundice. Throat is clear. NECK: Neck is supple, no JVD, no lymphadenopathy. CHEST: Chest is clear to auscultation and percussion. CARDIAC: Regular rate and rhythm with no murmur gallop or rubs. ABDOMEN: Soft, nondistended, mild midepigastric tenderness; no hepatosplenomegaly; bowel sounds are present in all four quadrants. Obese EXTREMITIES: No clubbing, cyanosis, or edema. SKIN: Normal; no rash; no jaundice. PHYSICIAN CODING SPECIALIST: No focal deficits; alert and oriented times three. Paraplegic Assessment and Plan Plan 47-year-old male with severe nausea vomiting abdominal pain slightly improved but still he had vomiting yesterday and still complaining of discomfort upper endoscopy was done today IMPRESSION: Severe grade D esophagitis in the distal part of the esophagus biopsy was done Gastritis biopsy was done Duodenum was normal PLAN: No NSAIDs Protonix 40 mg daily Follow-up biopsy Antiemetics as needed Diet as tolerated low-carb low-fat to help with weight loss Marina Ruelas MD May 01, 2018 09:42
[2018-05-01] MEDS: PANTOPRAZOLE SODIUM 40 MG VIAL IV PUSH SCH (11:00)
[2018-05-01] MEDS ORDERED: MAG-LIQ PO (11:01)
[2018-05-01] MEDS ORDERED: PERI PO (11:01)
[2018-05-01] MEDS ORDERED: ZOFR4TAB3 SL (11:01)
[2018-05-01] MEDS ORDERED: PROT40TA PO (11:01)
--- NOTE | 2018-05-01 11:01 | HHI.DS ---
Discharge Summary Admission Date Apr 29, 2018 at 16:19 Discharge Date: May 01, 2018 Admitting Diagnosis Acute kidney injury, choledocolithiasis (1) Abdominal pain ICD Code: R10.9 - Unspecified abdominal pain Status: Acute (2) Choledocholithiasis ICD Code: K80.50 - Calculus of bile duct without cholangitis or cholecystitis without obstruction Status: Acute (3) Acute renal failure ICD Code: N17.9 - Acute kidney failure, unspecified Status: Acute Procedures See below. Brief History - From Admission This is a pleasant 47-year-old male patient with a known medical history of vital cord injury with resultant paraplegia, hypertension, hyperlipidemia, hypothyroidism who presented to the ED with complaints of abdominal pain with associated nausea, vomiting, diarrhea and sore throat. Patient states that his symptoms started 3 days ago and has been unable to sleep as well as eat or drink. Patient states that the pain is in his mid epigastric area and radiates up his chest, characterized as a sharp and stabbing sensation, rated an 8 out of 10 at its worst on pain scale, has improved with IV Dilaudid now rated a 6 out of 7 on pain scale. Patient does admit to nausea and vomiting, does state that anything he tries to eat he has been throwing up over the past few days. Relatedly patient has had a sore throat and has been unable to eat as well. Patient does take chronic pain medications for neuropathy and is usually constipated although patient did have one bout of diarrhea yesterday. Does admit to belching. Denies any subjective fevers, chills, cough, shortness of breath, dysuria. Does state that his urine has been darker than usual. No recent antibiotic use. No recent changes to his medicines. Does follow with pain management, last seen 2 weeks ago with no changes to his medicines. His personnel officer is Dr. Bass, last seen roughly a year ago. It should be noted that patient was hospitalized last May, having cholelithiasis requiring sphincterectomy. CBC/BMP: 04/30/18 0654 05/01/18 0712 Significant Findings Laboratory Tests Test 04/29/18 14:05 04/29/18 14:50 04/30/18 06:54 05/01/18 07:12 White Blood Count 11.8 TH/MM3 (4.0-11.0) Red Blood Count 5.94 MIL/MM3 (4.50-5.90) Hemoglobin 18.8 GM/DL (13.0-17.0) 17.2 GM/DL (13.0-17.0) Hematocrit 56.4 % (39.0-51.0) 52.2 % (39.0-51.0) Neutrophils (%) (Auto) 70.5 % (16.0-70.0) Monocytes (%) (Auto) 15.2 % (0.0-8.0) 12.3 % (0.0-8.0) Neutrophils # (Auto) 8.3 TH/MM3 (1.8-7.7) Monocytes # (Auto) 1.8 TH/MM3 (0-0.9) Blood Urea Nitrogen 38 MG/DL (7-18) 30 MG/DL (7-18) Creatinine 3.10 MG/DL (0.60-1.30) 2.20 MG/DL (0.60-1.30) Aspartate Amino Transf (AST/SGOT) 48 U/L (15-37) 44 U/L (15-37) Alanine Aminotransferase (ALT/SGPT) 79 U/L (12-78) Total Bilirubin 3.5 MG/DL (0.2-1.0) 3.6 MG/DL (0.2-1.0) 2.9 MG/DL (0.2-1.0) Sodium Level 135 MEQ/L (136-145) Chloride Level 97 MEQ/L (98-107) Estimat Glomerular Filtration Rate 22 ML/MIN (>89) 32 ML/MIN (>89) 59 ML/MIN (>89) Urine Ketones TRACE mg/dL (NEG) Urine Occult Blood SMALL (NEG) Urine Leukocyte Esterase SMALL (NEG) Basophils (%) (Auto) 2.3 % (0.0-2.0) Random Glucose 109 MG/DL (74-106) Calcium Level 8.4 MG/DL (8.5-10.1) Direct Bilirubin 0.3 MG/DL (0.0-0.2) 0.3 MG/DL (0.0-0.2) Indirect Bilirubin 3.3 MG/DL (0.0-0.8) 2.6 MG/DL (0.0-0.8) Imaging Last Impressions Abdomen/Pelvis CT 04/29/18 1440 Signed Impressions: CONCLUSION: Stable appearance of the abdomen. Hepatic steatosis. Pneumobilia. No acute find ings. Chest X-Ray 04/29/18 1352 Signed Impressions: CONCLUSION: Negative examination. Abdomen Ultrasound 04/29/18 0000 Signed Impressions: CONCLUSION: 1. Gallbladder surgically absent without biliary ductal dilatation. 2. Fatty infiltration of the liver. 3. No hydronephrosis or free fluid identified. PE at Discharge GENERAL: Well-developed, well-nourished patient in NAD. SKIN: Warm and dry. No rash. HEAD: Normocephalic. Atraumatic. EYES: Pupils equal and round. No scleral icterus. No injection or drainage. ENT: No nasal bleeding or discharge. Mucous membranes pink and moist. NECK: Supple. Trachea midline. CARDIOVASCULAR: Regular rate and rhythm. S1, S2 noted. No murmur appreciated. No chest pain to palpation. RESPIRATORY: No accessory muscle use. Clear to auscultation. Breath sounds equal bilaterally. GASTROINTESTINAL: Abdomen soft, non-tender, nondistended. Normoactive bowel sounds x4. No tenderness. MUSCULOSKELETAL: Extremities without clubbing, cyanosis, or edema. NEUROLOGICAL: Awake and alert. Bilateral lower extremity flaccid, history of paralysis. Lack of sensation in bilateral lateral extremities. No edema. Pedal pulses present. Normal speech. PSYCHIATRIC: Appropriate mood and affect; insight and judgment normal. Pt update on day of discharge Follow-up enteritis and elevated bilirubin and acute kidney injury. Patient seen and examined, sitting in bed comfortably in no apparent distress. Requesting to go home. Acute kidney injury resolved today has been continued on IV fluids overnight. Patient is n.p.o. for GI procedure today. Likely discharge later this afternoon depending on GI recommendations. Vital signs stable. Afebrile. Hospital Course This is a pleasant 47-year-old male patient with a known medical history of vital cord injury with resultant paraplegia, hypertension, hyperlipidemia, hypothyroidism who presented to the ED with complaints of abdominal pain with associated nausea, vomiting, diarrhea and sore throat. Patient states that his symptoms started 3 days ago and has been unable to sleep as well as eat or drink. Presented gastroenteritis presence of abdominal pain, nausea, vomiting and diarrhea. Elevated total bilirubin upon presentation most likely Gilbert syndrome. Has a history of cholelithiasis. Abdominal/pelvis CT reviewed showing stable appearance. Hepatic steatosis. Pneumobilia. No acute findings. Total bilirubin 3.5. Patient's total bili in November was 1.0. Upon review of records patient had cholelithiasis with dilated common bile duct on CT in May 2017. Patient underwent an MRCP with cholelithiasis and mild distention. Status post cholecystectomy as well as ERCP with sphincterectomy and stone removal. Of note , pneumobilia was appreciated CT scan which was present at CT scan from November and is likely due to prior instrumentation. Abdominal ultrasound showing fatty liver, no hydronephrosis no biliary ductal dilation. Patient underwent EGD today, severe gastritis found. Will start a PPI follow-up GI outpatient. UA negative. Influenza negative. Group A strep negative. Blood cultures with no growth to date. Patient was in acute renal failure upon presentation suspect secondary to vomiting and poor intake. Creatinine 3.1 on presentation, GFR 22. Creatinine 2.2 today. Upon review of lab history, patient's creatinine in November was 1.2. Back to baseline today on morning labs. Status post 2 L NS in ED. patient is tolerating p.o. intake. Abdominal ultrasound showing no hydronephrosis. No stones. Follow BMP. History of hypertension hypothyroidism, stable during hospitalization. Pt Condition on Discharge: Stable Discharge Disposition: Discharge Home Discharge Time: > 30 minutes Discharge Instructions DIET: Follow Instructions for: Heart Healthy Diet Speech Therapy-Diet Recommends: Regular Activities you can perform: Regular-No Restrictions Follow up Referrals: Gastroenterology - 2 Weeks with Marina Ruelas MD PCP Follow-up - 1 Week New Medications: Ondansetron Odt (Zofran Odt) 4 Mg Tab 4 MG SL Q6HR PRN for Nausea/Vomiting for 5 Days, #30 TAB 0 Refills Pantoprazole (Protonix) 40 Mg Tab 40 MG PO DAILY for Reflux for 14 Days, #14 TAB 0 Refills Wrkosbzo-Duxdkbnot-Ahfkownnwli Liq (Mag-Al Plus Liq) 200-200-20 Mg/5 Ml Susp 30 ML PO Q6H PRN for indigestion for 5 Days, #600 ML Take between meals or as directed. Shake well. Do not exceed 120 mL/24 hrs. Sennosides-Docusate Sodium (Gnp Senna Plus 8.6-50 mg) 8.6 Mg-50 Mg Tab 1 TAB PO BID for Constipation for 10 Days, #20 TAB Continued Medications: Alprazolam (Xanax) 0.5 Mg Tab 1 MG PO HS, TAB 0 Refills Amlodipine (Amlodipine) 5 Mg Tab 5 MG PO DAILY for Blood Pressure Management, #30 TAB 0 Refills Atorvastatin (Atorvastatin) 40 Mg Tab 40 MG PO DAILY for Cholesterol Management, #30 TAB 0 Refills Fesoterodine ER (Toviaz ER) 8 Mg Cassandra 8 MG PO DAILY for Overactive bladder, #30 TAB 0 Refills Hydromorphone (Hydromorphone) 2 Mg Tab Unknown Dose PO Q4H PRN for PAIN, TAB 0 Refills Levothyroxine (Levothyroxine) 300 Mcg Tab 300 MCG PO DAILY for Thyroid, #30 TAB 0 Refills Losartan (Losartan) 100 Mg Tab 100 MG PO DAILY for Blood Pressure Management, #30 TAB 0 Refills Metoprolol Succinate ER 24 HR (Metoprolol Succinate ER 24 HR) 50 Mg Tab 50 MG PO DAILY, #30 TAB 0 Refills Zolpidem (Zolpidem) 10 Mg Tab 10 MG PO HS PRN for INSOMNIA, TAB 0 Refills Marisol Mccarthy May 01, 2018 11:01
--- NOTE | 2018-05-01 11:02 | HHI.DCPOC ---
Discharge Care Plan Diagnosis: (1) Gastritis (2) MELBA (acute kidney injury) (3) Neurogenic bladder disorder (4) Paraplegia (5) HTN (hypertension) (6) Hypothyroidism (7) Abdominal pain Goals to Promote Your Health * To prevent worsening of your condition and complications * To maintain your health at the optimal level Directions to Meet Your Goals Take your medications as prescribed Follow your dietary instruction Follow activity as directed Keep your appointments as scheduled Take your immunizations and boosters as scheduled If your symptoms worsen call your PCP, if no PCP go to Urgent Care Center or Emergency Room Smoking is Dangerous to Your Health. Avoid second hand smoke Call the 24-hour hour crisis hotline for domestic abuse at Marisol Mccarthy May 01, 2018 11:02
[2018-05-01 12:00] VITALS: BP 155/74; PULSE 97; RESP 18; TEMP 97.3; O2SAT 97
[2018-05-01] MEDS: PROCHLORPERAZINE INJ 10 MG/2 ML VIAL IV PUSH PRN (12:40)
[2018-05-01 16:00] VITALS: BP 148/77; PULSE 90; RESP 18; TEMP 97.7; O2SAT 97
== END 2018-05-01 18:38 | disposition home or self-care (01) | DRG 392 ==
LOC: PHED 13:27 → PHEDA 16:19 → PH3A 17:40
PROVIDERS: ADMIT Hospitalist; ATTEND Hospitalist
PROC: 0DB68ZX Excision of Stomach, Via Natural or Artificial Opening Endoscopic, Diagnostic (ICD-10-PCS; 2018-05-01)
PROC: 0DB58ZX Excision of Esophagus, Via Natural or Artificial Opening Endoscopic, Diagnostic (ICD-10-PCS; principal; 2018-05-01 09:23)
DX: K29.70 Gastritis, unspecified, without bleeding (principal); N17.9 Acute kidney failure, unspecified; G82.20 Paraplegia, unspecified; R56.9 Unspecified convulsions; K20.9 Esophagitis, unspecified; K52.9 Noninfective gastroenteritis and colitis, unspecified; E78.5 Hyperlipidemia, unspecified; K80.50 Calculus of bile duct without cholangitis or cholecystitis without obstruction; I10 Essential (primary) hypertension; E03.9 Hypothyroidism, unspecified; F41.9 Anxiety disorder, unspecified; E80.4 Gilbert syndrome; K76.0 Fatty (change of) liver, not elsewhere classified; E86.0 Dehydration; M19.90 Unspecified osteoarthritis, unspecified site; Z88.1 Allergy status to other antibiotic agents; Z79.899 Other long term (current) drug therapy
CPT/HCPCS: 71045; 74176; 76700; 80048; 80053; 80076; 81001; 83605; 85025; 87040; 87081; 87804; 87880; 88305; 88312; 96361; 96374; 96375; C9113; J0780; J1170; J1200; J2270; J2543; J2765; J7030; P9612

== ENCOUNTER 2018-05-08 12:14 | Emergency (ER) | payer MEDICARE ==
[~2018-05-08] VITALS: Ht 203.2 cm; Wt 119.0 kg
[~2018-05-08 12:14] MED LIST changes: -HYDR-3583 PO; +HYDR2TAB PO; -IBUP1TAB7 PO; +MAG-LIQ PO; +PERI PO; +PROT40TA PO; +ZOFR4TAB3 SL
[2018-05-08 12:16] VITALS: BP 182/82; PULSE 124; RESP 22; TEMP 98.2; O2SAT 97
[2018-05-08] MEDS ORDERED: LIDOCAINE VISCOUS 2% SOLN 15 ML UDC PO ONE (13:00)
[2018-05-08] MEDS ORDERED: PANTOPRAZOLE SOD 40 MG DELAYED RELEASE TAB PO ONE (13:00)
[2018-05-08] MEDS ORDERED: ALUMINUM/MAGNESIUM/SIMETH 30 ML CUP PO ONE (13:00)
--- NOTE | 2018-05-08 13:02 | PD ---
HPI Chief Complaint: Abdominal Pain Time Seen by Provider: 12:37 Travel History International Travel<30 days: No Contact w/Intl Traveler<30days: No Traveled to known affect area: No History of Present Illness HPI 47yo M with PMH of HTN, spinal cord injury resulting in paraplegia, HLD, hypothyroidism, chronic pain follows with pain management on hydromorphone presents to the ED with c/o left abdominal pain for 2 days. Said it is left sided and constant. Did not take his pain medications at home. +Nonbloody diarrhea. Pt does his own cath for urine normally. Denies any fever, chest pain, sob, n/v. Pt was just here 04/29/18-05/01/18 for MELBA, enteritis and elevated bilirubin. Pt was seen by GI and had EGD on 05/01/18 that showed esophagitis/gastritis. Pt has not followed up with GI as outpatient. PFSH Past Medical History Arthritis: Yes Asthma: No Autoimmune Disease: No Blood Disorders: No Anxiety: Yes Depression: No Heart Rhythm Problems: No Cancer: No Cardiac Catheterization: No Cardiovascular Problems: Yes (HIGH BP) High Cholesterol: Yes Chest Pain: No Congestive Heart Failure: No COPD: No Cerebrovascular Accident: No Diabetes: No Diminished Hearing: No Endocrine: Yes (HYPOTHYROIDISM) Gastrointestinal Disorders: Yes GERD: Yes Glaucoma: No Genitourinary: Yes (SELF CATH, SECONDARY TO SPINAL INJURY) Headaches: No Hepatitis: No Hiatal Hernia: No Hypertension: Yes Immune Disorder: No Implanted Vascular Access Dvce: Yes Kidney Stones: Yes Musculoskeletal: Yes Neurologic: Yes (L1-T2 SPINAL CORD INJURY) Psychiatric: No Reproductive: No Respiratory: Yes Immunizations Current: Yes Migraines: No Myocardial Infarction: No Renal Failure: No Seizures: Yes (2001) Sleep Apnea: Yes Thyroid Disease: Yes (HYPOTHYROID) Ulcer: No PNEUMOCCOCAL Vaccine (Year): 2 Past Surgical History Abdominal Surgery: Yes (UMBILICAL HERNIA) Appendectomy: Yes (AGE 15) Body Medical Devices: RODS IN BACK Cardiac Surgery: No Cholecystectomy: Yes Coronary Artery Bypass Graft: No Ear Surgery: No Endocrine Surgery: No Eye Surgery: No Genitourinary Surgery: No Gynecologic Surgery: No Neurologic Surgery: Yes (SPINAL FUSION L1 - T12) Oral Surgery: No Pacemaker: No Thoracic Surgery: Yes Tonsillectomy: Yes Other Surgery: Yes (PORTION OF HIP AND RIBS REMOVED FOR SPINAL FUSIONS 1990) Social History Alcohol Use: Yes (Occ.) Tobacco Use: Yes (1/2 pk per day) Substance Use: No Allergies-Medications (Allergen,Severity, Reaction): Coded Allergies: vancomycin (Verified Adverse Reaction, Intermediate, AFFECTS BLOOD CELLS, 05/08/18) *MDRO Multi-Drug Resistant Organism (Verified Adverse Reaction, Unknown, ESBL, 05/08/18) ESBL (urine & blood) - 01/13/17 ESBL (urine) 05/25/17 Reported Meds & Prescriptions Reported Meds & Active Scripts Active Omeprazole 20 Mg Tab 20 Mg PO DAILY 10 Days Zofran Odt (Ondansetron Odt) 4 Mg Tab 4 Mg SL Q6HR PRN 5 Days Protonix (Pantoprazole Sodium) 40 Mg Tab 40 Mg PO DAILY 14 Days Mag-Al Plus Liq (Ewcrdrbh-Iycdjeric-Kixkugejjdg Liq) 200-200-20 Mg/5 Ml Susp 30 Ml PO Q6H PRN 5 Days Take between meals or as directed. Shake well. Do not exceed 120 mL/24 hrs. Gnp Senna Plus 8.6-50 mg (Sennosides-Docusate Sodium) 8.6 Mg-50 Mg Tab 1 Tab PO BID 10 Days Reported Hydromorphone (Hydromorphone HCl) 2 Mg Tab Unknown Dose PO Q4H PRN Metoprolol Succinate ER 24 HR (Metoprolol Succinate) 50 Mg Tab 50 Mg PO DAILY Xanax (Alprazolam) 0.5 Mg Tab 1 Mg PO HS Atorvastatin (Atorvastatin Calcium) 40 Mg Tab 40 Mg PO DAILY Zolpidem (Zolpidem Tartrate) 10 Mg Tab 10 Mg PO HS PRN Toviaz ER (Fesoterodine Fumarate) 8 Mg Cassandra 8 Mg PO DAILY Losartan (Losartan Potassium) 100 Mg Tab 100 Mg PO DAILY Levothyroxine (Levothyroxine Sodium) 300 Mcg Tab 300 Mcg PO DAILY Amlodipine (Amlodipine Besylate) 5 Mg Tab 5 Mg PO DAILY Review of Systems Except as stated in HPI: all other systems reviewed are Neg Physical Exam Narrative GENERAL: 47yo M in mild distress. SKIN: Focused skin assessment warm/dry. HEAD: Atraumatic. Normocephalic. EYES: Pupils equal and round. No scleral icterus. No injection or drainage. ENT: No nasal bleeding or discharge. Mucous membranes pink and moist. NECK: Trachea midline. No JVD. CARDIOVASCULAR: Regular rate and rhythm. No murmur appreciated. RESPIRATORY: No accessory muscle use. Clear to auscultation. Breath sounds equal bilaterally. GASTROINTESTINAL: Abdomen soft, +TTP LLQ >LUQ. No rebound tenderness or guarding. MUSCULOSKELETAL: No obvious deformities. No clubbing. No cyanosis. No edema. NEUROLOGICAL: Awake and alert. No obvious cranial nerve deficits. Motor grossly within normal limits. Normal speech. PSYCHIATRIC: Appropriate mood and affect; insight and judgment normal. Data Data Last Documented VS Vital Signs Date Time Temp Pulse Resp B/P (MAP) Pulse Ox O2 Delivery O2 Flow Rate FiO2 05/08/18 16:44 115 20 102/85 (91) 97 Room Air 05/08/18 12:16 98.2 Orders Orders Complete Blood Count With Diff (05/08/18 12:46) Comprehensive Metabolic Panel (05/08/18 12:46) Lipase (05/08/18 12:46) Ct Abd/Pel W Iv Contrast(Rout) (05/08/18 12:46) Urinalysis - C+S If Indicated (05/08/18 12:46) Al-Mag Hy-Si 40-40-4 Mg/Ml Liq (Mag-Al P (05/08/18 13:00) Lidocaine 2% Viscous (Xylocaine 2% Visco (05/08/18 13:00) Pantoprazole (Protonix) (05/08/18 13:00) Iohexol 350 Inj (Omnipaque 350 Inj) (05/08/18 13:29) Urine Culture (05/08/18 13:06) Sodium Chlor 0.9% 1000 Ml Inj (Ns 1000 M (05/08/18 13:45) Ceftriaxone Inj (Rocephin Inj) (05/08/18 13:45) Morphine Inj (Morphine Inj) (05/08/18 14:30) Electrocardiogram (05/08/18 ) Ondansetron Odt (Zofran Odt) (05/08/18 15:00) Ketorolac Inj (Toradol Inj) (05/08/18 15:15) Labs Laboratory Tests Test 05/08/18 13:06 05/08/18 13:12 Urine Collection Type CLEAN CATCH Urine Color YELLOW Urine Turbidity CLOUDY Urine pH 6.0 Urine Specific Calvin 1.020 Urine Protein 30 mg/dL Urine Glucose (UA) 250 mg/dL Urine Ketones 15 mg/dL Urine Occult Blood NEG Urine Nitrite NEG Urine Bilirubin NEG Urine Urobilinogen 2.0 MG/DL Urine Leukocyte Esterase NEG Urine RBC 0-3 /hpf Urine WBC 20-24 /hpf Urine WBC Clumps FEW Urine Squamous Epithelial Cells > 8 /hpf Urine Amorphous Sediment MOD Urine Bacteria FEW /hpf Microscopic Urinalysis Comment CULTURE INDICATED Urine Collection Time 1306 White Blood Count 6.7 TH/MM3 Red Blood Count 5.65 MIL/MM3 Hemoglobin 18.1 GM/DL Hematocrit 54.0 % Mean Corpuscular Volume 95.6 FL Mean Corpuscular Hemoglobin 32.1 PG Mean Corpuscular Hemoglobin Concent 33.5 % Red Cell Distribution Width 14.3 % Platelet Count 300 TH/MM3 Mean Platelet Volume 7.9 FL Neutrophils (%) (Auto) 55.5 % Lymphocytes (%) (Auto) 25.3 % Monocytes (%) (Auto) 16.2 % Eosinophils (%) (Auto) 1.6 % Basophils (%) (Auto) 1.4 % Neutrophils # (Auto) 3.7 TH/MM3 Lymphocytes # (Auto) 1.7 TH/MM3 Monocytes # (Auto) 1.1 TH/MM3 Eosinophils # (Auto) 0.1 TH/MM3 Basophils # (Auto) 0.1 TH/MM3 CBC Comment DIFF FINAL Differential Comment Blood Urea Nitrogen 18 MG/DL Creatinine 1.20 MG/DL Random Glucose 101 MG/DL Total Protein 8.4 GM/DL Albumin 4.3 GM/DL Calcium Level 9.8 MG/DL Alkaline Phosphatase 119 U/L Aspartate Amino Transf (AST/SGOT) 188 U/L Alanine Aminotransferase (ALT/SGPT) 283 U/L Total Bilirubin 1.2 MG/DL Sodium Level 137 MEQ/L Potassium Level 4.3 MEQ/L Chloride Level 101 MEQ/L Carbon Dioxide Level 27.9 MEQ/L Anion Gap 8 MEQ/L Estimat Glomerular Filtration Rate 65 ML/MIN Lipase 464 U/L [facility] Medical Decision Making Medical Screen Exam Complete: Yes Emergency Medical Condition: Yes Interpretation(s) EKG: Sinus tachycardia at 112bpm. Normal axis. Q wave III, TWI V4-6 is unchanged from previous EKG in 06/2013. Differential Diagnosis Acute diverticulitis vs. gastritis vs. pancreatitis Narrative Course 47yo M with left sided abdominal pain. Labs reviewed, no leukocytosis. H/H elevated which is his baseline. Total bilirubin at 1.2, which is decreased from prior. LFTs are elevated but pt has no right upper abdominal pain. Lipase mildly elevated at 464. UA showed WBC 20-24. Pt given ceftriaxone. CT a/p showed mild hepatic steatosis. Status post cholecystectomy. No acute inflammatory process. Post surgical changes thoracolumbar spine. Pt given GI cocktail, pantoprazole and reevaluated at bedside. Said he is still in pain and after the contrast, feels a little nauseous. Pt given morphine and zofran. Pt is mildly tachycardic, said his heart rate is always high. Said he does drink alcohol but denies daily alcohol abuse and history of withdrawal. Pt given NS IVF and HR has improved. Pt given more pain meds with improvement. He follows with pain management so will not prescribe narcotics. Pt tolerating PO. Pt instructed to follow up with GI. Diagnosis Primary Impression: Elevated liver enzymes Additional Impression: UTI (urinary tract infection) Qualified Codes: N39.0 - Urinary tract infection, site not specified Referrals: Sharee Jordan MD call for appointment Patient Instructions: General Instructions Departure Forms: Tests/Procedures Additional Instructions: Please follow up with GI as soon as you can. Return to the ED if symptoms worsen. Med/Other Pt SpecificInfo: Prescription(s) given Scripts Cephalexin (Cephalexin) 500 Mg Tab 500 MG PO Q12H for Infection for 7 Days, #14 TAB 0 Refills Prov: Rossy Schaefer DO 05/08/18 Omeprazole (Omeprazole) 20 Mg Tab 20 MG PO DAILY for 10 Days, #10 TAB 0 Refills Prov: Rossy Schaefer DO 05/08/18 Disposition: 01 DISCHARGE HOME Condition: Stable SchaeferRossy lora May 08, 2018 13:02
[2018-05-08 13:14] VITALS: BP 134/99; PULSE 125; RESP 18; O2SAT 98
[2018-05-08 13:23] LABS: AUTOMATED NEUTROPHIL # 3.7 TH/MM3 (1.8-7.7); BASOPHIL # 0.1 TH/MM3 (0-0.2); BASOPHIL % 1.4 % (0.0-2.0); EOSINOPHIL # 0.1 TH/MM3 (0-0.4); EOSINOPHIL % 1.6 % (0.0-4.0); HEMOGLOBIN 18.1 GM/DL (13.0-17.0); LYMPH % 25.3 % (9.0-44.0); LYMPHOCYTE # 1.7 TH/MM3 (1.0-4.8); MEAN CELL VOLUME 95.6 FL (80.0-100.0); MEAN CORPUSCULAR HEMOGLOBIN 32.1 PG (27.0-34.0); MEAN CORPUSCULAR HGB CONC 33.5 % (32.0-36.0); MEAN PLATELET VOLUME 7.9 FL (7.0-11.0); MONO % 16.2 % (0.0-8.0); MONOCYTE # 1.1 TH/MM3 (0-0.9); NEUT % 55.5 % (16.0-70.0); PLATELET COUNT 300 TH/MM3 (150-450); RED BLOOD COUNT 5.65 MIL/MM3 (4.50-5.90); RED CELL DISTRIBUTION WIDTH 14.3 % (11.6-17.2); WHITE BLOOD COUNT 6.7 TH/MM3 (4.0-11.0)
[2018-05-08 13:26] LABS: BLOOD, URINE NEG (NEG); GLUCOSE,URINE 250 mg/dL (NEG); KETONE, URINE 15 mg/dL (NEG); NITRITE,URINE NEG (NEG); URINE COLOR YELLOW (YELLW/STRAW); URINE LEUKOCYTE ESTERASE NEG (NEG)
[2018-05-08] MEDS ORDERED: IOHEXOL 350 MG/ML 10 ML VIAL (for RAD DIAG) IVCONTRAST ONE (13:29)
[2018-05-08 13:30] LABS: CHLORIDE 101 MEQ/L (98-107); SODIUM (NA) 137 MEQ/L (136-145)
[2018-05-08 13:31] LABS: BILIRUBIN, URINE NEG (NEG)
[2018-05-08 13:33] LABS: CALCIUM 9.8 MG/DL (8.5-10.1)
[2018-05-08 13:34] LABS: ALBUMIN 4.3 GM/DL (3.4-5.0); BICARBONATE 27.9 MEQ/L (21.0-32.0); BLOOD UREA NITROGEN 18 MG/DL (7-18); GLUCOSE,RANDOM 101 MG/DL (74-106)
[2018-05-08 13:37] LABS: ALT (GPT) 283 U/L (12-78); AST (GOT) 188 U/L (15-37); GLOMERULAR FILTRATION RATE 65 ML/MIN (>89)
[2018-05-08 13:38] LABS: TOTAL BILIRUBIN ADULT 1.2 MG/DL (0.2-1.0); TOTAL PROTEIN 8.4 GM/DL (6.4-8.2)
[2018-05-08 13:39] LABS: RBC, URINE 0-3 /hpf (0-3)
--- NOTE | 2018-05-08 13:39 | RADRPT ---
EXAM DATE: 05/08/2018 1:34 PM EDT AGE/SEX: 47 years / Male INDICATIONS: Left sided abdominal pain. CLINICAL DATA: This is the patient's initial encounter. Patient reports that signs and symptoms have been present for 4 - 6 days and indicates a pain score of 4/10. MEDICAL/SURGICAL HISTORY: . Cardiovascular disease. Hypercholesterolemia. Hypertension. Spinal cord injury - L1-T2. Paraplegia. Colitis. Kidney Stones. Hypothyroidism. MRSA. . Umbilical hernia re pair. Tonsillectomy. Cholecystectomy. Appendectomy. Spinal fusion/Rosas Rods. ORAL CONTRAST: No oral contrast ingested. RADIATION DOSE: 21.34 CTDI (mGy) COMPARISON: [facility], CT ABDOMEN & PELVIS W CONTRAST, 12/08/2017. . TECHNIQUE: Multiple contiguous axial images were obtained through the abdomen and pelvis following b olus infusion of 95 ml Omnipaque 350 (iohexol) nonionic water-soluble contrast as a single exam dos e. No oral contrast ingested. Using automated exposure control and adjustment of the mA and/or kV ac cording to patient size, radiation dose was kept as low as reasonably achievable to obtain optimal di agnostic quality images. DICOM format image data is available electronically for review and comparis on. FINDINGS: Lower Lungs: The visualized lower lungs are clear. Liver: The liver is decreased in density without space-occupying lesion. Cholecystectomy clips. There is no dilation of the biliary tree. Spleen: Homogeneous density without enlargement. Pancreas: Unremarkable without mass or calcification. Kidneys: Normal in size and shape. No evidence of mass or hydronephrosis. Adrenal Glands: Unremarkable. Aorta: The aorta and proximal iliac vessels are grossly unremarkable without aneurysmal dilation. Bowel/Mesentery: The bowel loops are grossly unremarkable. The cecum and sigmoid colon have a normal configuration. Abdominal Wall: Intact. Retroperitoneum: No evidence of adenopathy in the retrocrural, para-aortic, or deep pelvic regions. Bladder: Contours are smooth. Reproductive Organs: No abnormal masses or calcifications seen. Inguinal: The inguinal region is unremarkable without evidence of adenopathy. Bony Structures: Scattered degenerative changes thoracolumbar spine. Postsurgical changes with fusio n in the thoracolumbar spine. CONCLUSION: 1. Mild hepatic steatosis. 2. Status post cholecystectomy. 3. No acute inflammatory process. 4. Postsurgical changes thoracolumbar spine Electronically signed by: Jimbo Sun MD 05/08/2018 1:37 PM EDT
[2018-05-08 13:40] LABS: ALKALINE PHOSPHATASE 119 U/L (45-117)
[2018-05-08 13:40] LABS: AMORPHOUS SEDIMENT, URINE MOD; BACTERIA, URINE FEW /hpf; SQUAMOUS EPITHELIAL CELL URINE > 8 /hpf (0-5); WHITE BLOOD CELL CLUMPS FEW
[2018-05-08] MEDS ORDERED: cefTRIAXone INJ 1,000 MG in SODIUM CHLORIDE 0.9% INJ 100 ML IV ONE (13:45)
[2018-05-08] MEDS ORDERED: SODIUM CHLOR 0.9% 1000 ML INJ 1,000 ML IV ONE (13:45)
[2018-05-08] MEDS ORDERED: MORPHINE SULFATE 4 MG/ML INJ IV PUSH ONE (14:30)
[2018-05-08 14:52] VITALS: BP 108/83; PULSE 115; RESP 20; O2SAT 97
[2018-05-08] MEDS ORDERED: ONDANSETRON ODT 4 MG TAB PO ONE (15:00)
[2018-05-08] MEDS ORDERED: KETOROLAC TROMETHAMINE 30 MG/ML (IVP) VIAL IV PUSH ONE (15:15)
[2018-05-08] MEDS ORDERED: OMEP20TA93 PO (16:11)
[2018-05-08 16:44] VITALS: BP 102/85; PULSE 115; RESP 20; O2SAT 97
[2018-05-08] MEDS ORDERED: CEPH500T PO (17:06)
[2018-05-08] MEDS ORDERED: MORPHINE SULFATE 8 MG/ML INJ IV PUSH ONE (17:15)
[2018-05-08 18:02] VITALS: BP 119/87
--- NOTE | 2018-05-09 23:27 | EKG ---
Date Performed: 05/08/2018 Time Performed: 15:02:11 PTAGE: 47 years EKG: SINUS TACHYCARDIA POSSIBLE RIGHT VENTRICULAR CONDUCTION DELAY POSSIBLE INFERIOR MYOCARDIAL INFARCTION MODERATE T-WAVE ABNORMALITY, CONSIDER LATERAL ISCHEMIA ABNORMAL ECG PREVIOUS TRACING : 07/07/2013 23.15 Since the previous tracing, no significant change noted DOCTOR: Anoop Brenner Interpretating Date/Time 05/09/2018 23:26:47
== END 2018-05-08 18:06 | disposition home or self-care (01) ==
LOC: PHED 12:14
DX: K76.0 Fatty (change of) liver, not elsewhere classified (principal); N39.0 Urinary tract infection, site not specified; F41.9 Anxiety disorder, unspecified; E78.00 Pure hypercholesterolemia, unspecified; E03.9 Hypothyroidism, unspecified; K21.9 Gastro-esophageal reflux disease without esophagitis; I10 Essential (primary) hypertension; G82.20 Paraplegia, unspecified; G89.29 Other chronic pain; M19.90 Unspecified osteoarthritis, unspecified site; R94.31 Abnormal electrocardiogram [ECG] [EKG]; F17.210 Nicotine dependence, cigarettes, uncomplicated; Z79.891 Long term (current) use of opiate analgesic
CPT/HCPCS: 74177; 80053; 81001; 83690; 85025; 87086; 93005; 96365; 96375; 96376; 99285; J0696; J1885; J2270; J7030; Q9967